=== PATIENT | female | born 1975 | race Caucasian/White ===

== ENCOUNTER 2021-11-24 00:19 | Emergency (ER) | payer OTHER, SELFPAY ==
[2021-11-24 00:28] VITALS: BP 133/92; PULSE 92; RESP 16; TEMP 36.2; O2SAT 96; BMI 41.6
--- NOTE | 2021-11-24 00:47 | ED.GENADULT ---
HPI - General Adult General Chief complaint: Anxiety Stated complaint: low potassium Time Seen by Provider: 11/24/21 00:24 Source: patient and family Mode of arrival: ambulatory Limitations: no limitations History of Present Illness HPI narrative: 46-year-old female with a notable history of Crohn's disease and prior history of hypokalemia the presents to the emergency department with anxiety over the last couple. It is accompanied by some general restlessness, poor sleep and restless legs. She had a similar episode a couple of years ago had her potassium level was noted to be low. This was suspected to be from her Crohn's disease. She says the Crohn's disease is pretty stable, she was off of her Remicade a few months ago but has been on time for the last 2 cycles. She does occasionally have some blood in her stools but this is not abnormal for her. She denies a prior history of iron deficiency anemia. No prior history of mental health disease. She has not made an appointment in the last few weeks to discuss her symptoms with her provider. She had a full-blown panic attack yesterday and another this evening, prompting her to come to the emergency department. She did not try taking Benadryl or any other interventions to help with her symptoms. Denies any alcohol intoxication or stimulants. No recent potassium levels outpatient. Denies intent of self-harm or need to be hospitalized for safety. Denies fever, trauma or recent illness. She is most concerned that her potassium is low again. Past medical history notable for Crohn's disease, hypertension, hyperlipidemia. Her home medications are amitriptyline, lisinopril with hydrochlorothiazide and rosuvastatin. Socially, she recently traveled back from [place] for a concert, reports she was anxious while there but no specific recent stressors or traumas. ROS is notable only for the generalized symptoms as above. Otherwise denies times 12 systems and states that her GI symptoms are stable for her. Related Data Home Medications Medication Instructions Recorded Confirmed lisinopril 20 1 tab PO QDAY 08/21/21 11/24/21 mg-hydrochlorothiazide 25 mg tablet amitriptyline 25 mg tablet mg 11/24/21 rosuvastatin 10 mg tablet mg 11/24/21 Allergies Allergy/AdvReac Type Severity Reaction Status Date / Time Penicillins Allergy hives Verified 11/24/21 00:32 PFSH PFSH Social History Smoking Status: Never smoker How often do you have a drink containing alcohol: never AUDIT-C Alcohol total score: 0 Non-prescribed substance use: marijuana (any form) Non-prescribed substance use details: thc edible tonight 5mg, had two service: No Exam Const: Vital Signs, click to edit/add: Vital Signs - 24 hr 11/24/21 00:28 Temperature 97.2 F L Pulse Rate [Left P ulse Oximeter] 92 Respiratory Rate 16 Blood Pressure [Ri ght Upper Arm] 133/92 H Pulse Oximetry 96 Oxygen Delivery Me thod Room Air Documenting provider has reviewed patient's vital signs: yes Common normals: no apparent distress and alert General appearance: cooperative and well kempt Orientation/consciousness: Yes awake HENMT: Common normals: normocephalic Head and scalp: normocephalic Face and sinus: normal facial exam Mouth: oral and palatal mucosa normal Throat: posterior oropharynx normal Eye: Common normals: PERRL, conjunctivae normal and no scleral icterus Conjunctiva: conjunctiva(e) normal Pupil: PERRL Neck & C-Spine: Common normals: full ROM and no lymphadenopathy Resp: Common normals: normal respiratory effort and clear to auscultation bilaterally Effort & inspection: able to speak in complete sentences Auscultation: clear to auscultation bilaterally Cardio: Common normals: regular rate, regular rhythm, no murmurs and peripheral pulses 2+ throughout Rate: regular rate Rhythm: regular rhythm Peripheral pulses: pulses 2+ throughout GI: Common normals: Normal to inspection, nondistended, normoactive bowel sounds present, soft to palpation, non-tender, no hepatosplenomegaly and no masses Palpation: soft and no hepatosplenomegaly Extremity: Common normals: no pedal edema Neuro: Sensorium/orientation: awake and alert Speech: speech normal Motor exam: strength 5/5 throughout, no tremor noted and no movement abnormalities noted Psych: Appearance: well kempt Attitude: calm and engaged Mood and affect: euthymic mood Insight: insight good Judgement: judgment good Skin: Common normals: no rashes or lesions noted General skin exam: no rashes or lesions noted Course Vital Signs Vital signs: Initial Vital Signs Temperature 97.2 F L 11/24/21 00:28 Temperature Source Temporal Artery Scan 11/24/21 00:28 Pulse Rate 92 11/24/21 00:28 Respiratory Rate 16 11/24/21 00:28 Blood Pressure 133/92 H 11/24/21 00:28 Blood Pressure Mean 105 11/24/21 00:28 Blood Pressure Position Sitting 11/24/21 00:28 Pulse Oximetry 96 11/24/21 00:28 Oxygen Delivery Method 11/24/21 00:28 Vital Signs Temperature 97.2 F L 11/24/21 00:28 Pulse Rate 92 11/24/21 00:28 Respiratory Rate 16 11/24/21 00:28 Blood Pressure 133/92 H 11/24/21 00:28 Pulse Oximetry 96 11/24/21 00:28 Oxygen Delivery Method 11/24/21 00:28 Temperature 97.2 F L 11/24/21 00:28 Pulse Rate 92 11/24/21 00:28 Respiratory Rate 16 11/24/21 00:28 Blood Pressure 133/92 H 11/24/21 00:28 Pulse Oximetry 96 11/24/21 00:28 Oxygen Delivery Method 11/24/21 00:28 Medical Decision Making MDM Narrative Medical decision making narrative: High risk for electrolyte abnormality due to Crohn's disease, though hypokalemia would be unusual in the setting of use of lisinopril with hydrochlorothiazide. Iron deficiency anemia would also be high on the list of issues. None of the seen emergency with her normal vital signs. She does agree that she wants her labs checked, therefore we will order basic metabolic panel, a CBC and she will receive a 0.5 mg of lorazepam. We discussed that if her labs are normal, she will need to follow up with primary care provider for long-term management of her anxiety and she was agreeable with this. Awaiting labs. Labs are back and reviewed. Potassium is 3.4, will replace slightly orally, discussed with patient that I do not think this is contributing to her symptoms today. There were thankfully also no signs of infection, anemia, kidney disease or other significant abnormalities. She does not report significant improvement with the lorazepam. Discussed follow-up plan for primary care followup seeing as there are no emergent findings today. Diagnosis: Acute anxiety, reassuring lab findings, very mild hypokalemia which is likely not contributing to symptoms, replaced Medical Records Medical records reviewed: Yes I reviewed the patient's medical records Lab Data Lab results reviewed: Yes I reviewed the patient's lab results Labs: Lab Results 11/24/21 11/24/21 Range/Units 00:55 00:55 WBC 8.91 (4.50-11.00) K/uL RBC 4.38 (4.00-5.20) m/uL Hgb 13.3 (12.0-16.0) gm/dL Hct 40.2 (33.0-51.0) % MCV 92 (80-100) fL MCH 30 (26-34) pg MCHC 33 (32-36) gm/dL RDW Coeff of Daljit 13.3 (11.5-15.5) % Plt Count 276 (140-440) K/uL Neut % (Auto) 64.9 (42.0-72.0) % Lymph % (Auto) 26.5 (20-44) % Treasure % (Auto) 7.2 (0.0-11.0) % Eos % (Auto) 0.8 (0.0-7.0) % Baso % (Auto) 0.4 (0.0-3.0) % Neut # (Auto) 5.78 (1.7-7.0) K/uL Lymph # (Auto) 2.36 (0.90-2.90) K/uL Treasure # (Auto) 0.60 (0.00-0.90) K/UL Eos # (Auto) 0.07 (0.00-0.50) K/uL Baso # (Auto) 0.04 (0.00-0.30) K/uL Abs Immat Gran (auto) 0.02 (0.00-0.30) K/uL Sodium 139 (135-149) mmol/L Potassium 3.4 L (3.6-5.1) mmol/L Chloride 103 (96-114) mmol/L Carbon Dioxide 27 (20-32) mmol/L BUN 15 (5-24) mg/dL Creatinine 0.6 (0.5-1.5) mg/dL Estimated Creat Clear 107.67 Estimated GFR 113 ml/min Glucose 126 H (60-115) mg/dL Calcium 9.2 (8.4-10.6) mg/dL Discharge Plan Discharge Clinical Impression: Acute anxiety Patient Disposition: Home w/ Parent or Adult Condition: Stable Instructions: Anxiety (ED) Additional Instructions: As we discussed, your potassium is nearly normal at 3.4. I do not think this is contributing to her symptoms today. We have given you a very small dose of an oral potassium replacement, this does not need to be rechecked at your follow-up. I would like for you to avoid alcohol, keep a journal of your symptoms and be reflective of what might be contributing to stress for you, remembering that it is not always logical or reasons that may be at the forefront of your consciousness. Also, it may be related to events from several weeks ago and not necessarily within the last few hours or even couple of days. It is okay to use Tylenol p.m. and/or melatonin as a sleep aid. I would like for you to follow-up with her primary care provider in about 7-14 days to further discuss her symptoms, bring any symptom diary or additional information that you have at the time. The remainder of your labs show no signs of anemia, infection, kidney disease or other electrolyte abnormalities. This is all reassuring. Continue your regular medications as you normally would Activity Level: No Restrictions Discharge Diet: Regular Prescriptions: No Action amitriptyline 25 mg tablet rosuvastatin 10 mg tablet Label Comments: TAKE 1 TABLET BY MOUTH EVERY DAY lisinopril-hydrochlorothiazide 20-25 mg tablet 1 tab PO QDAY Follow Up/Referrals: Sydnee Rider MD [Primary Care Provider] - Stand Alone Forms: [employer] Info Instructions
[2021-11-24] MEDS: LORazepam 0.5 MG TABLET PO (00:49)
--- OUTSIDE RECORDS SUMMARY | 2021-11-24 01:01 | XMS_ITS | Encounter Summary ---
:1975 Author Organization [place] Address [address] [facility] [place] [address] Care Team Providers Name Role Phone No Ref-Primary, Physician Primary Care Provider Reason for Visit Reason Comments Home Infusion Remicade Infusion Encounter Details Date Type Department Care Team Description 05/12/2021 Documentation Only [facility] Keyla Ann Home Infusion Infusion [facility] Natar[facility] (Remicade Infusion) [address] [place] [address] Social History Tobacco Use Types Packs/Day Years Used Date Smoking Tobacco: Never Alcohol Use Standard Drinks/Week Comments No 0 (1 standard drink = 0.6 oz pure alcoho l) Sex Assigned at Date Recorded Not on file documented as of this encounter Progress Notes Keyla Ann [facility] - 05/12/2021 11:59 PM CDTSummary: Remicade Infusion Skilled Nurse visit in the patient home to administer Remicade 500 mg IV. No recent elevated temperature, fever, chills, productive cough, coughing for 3 weeks or longer or hemoptysis, abnormal vital signs, night sweats, chest pain. No decrease in appetite, unexplained weight loss or fatigue. No othernew onset medical symptoms. Current weight 240 lbs. PIV placed in right hand, one attempt. Pre medicated with Tylenol 650 mg po and Zyrtec 10 mg po. Infusion completed without complication or reaction.Pt reports therapy is effective in managing symptoms related to therapy. MALLORY [phone] documented in this encounter Plan of Treatment Not on filedocumented as of this encounter Visit Diagnoses Not on filedocumented in this encounter Care Teams Chain Offbearer Relationship Specialty Start Date End Date No Ref-Primary, Physician PCP - General 03/09/20 documented as of this encounter
--- OUTSIDE RECORDS SUMMARY | 2021-11-24 01:01 | XMS_ITS | Encounter Summary ---
:1975 Author Organization [place] Address [address] [facility] [place] [address] Care Team Providers Name Role Phone No Ref-Primary, Physician Primary Care Provider Encounter Details Date Type Department Care Team Description 11/05/2021 Home Infusion [place] [facility] Romina Meraz, [facility] [address] [place], [place] [phone] [place] [address] [place] [address] (Wo rk) Social History Tobacco Use Types Packs/Day Years Used Date Smoking Tobacco: Never Alcohol Use Standard Drinks/Week Comments No 0 (1 standard drink = 0.6 oz pure alcoho l) Sex Assigned at Date Recorded Not on file documented as of this encounter Progress Notes Karina Lo - 11/05/2021 11:59 PM CDT This is a recent snapshot of the patient's [facility] medical record. For current drug dose and complete information and questions, call [phone] or In Marii [facility] ([id number]) CSN Number: [id number] documented in this encounter Plan of Treatment Not on filedocumented as of this encounter Visit Diagnoses Not on filedocumented in this encounter Care Teams Special Events Planner Relationship Specialty Start Date End Date No Ref-Primary, Physician PCP - General 03/09/20 documented as of this encounter
--- OUTSIDE RECORDS SUMMARY | 2021-11-24 01:01 | XMS_ITS | Encounter Summary ---
:1975 Author Organization [place] Address [facility] [facility] [place] [address] Care Team Providers Name Role Phone No Ref-Primary, Physician Primary Care Provider Encounter Details Date Type Department Care Team Description 09/21/2021 Home Infusion [facility] Romina Meraz, [facility] [address] [place], [place] [phone] [place] [address] [place] [address] (Wo rk) Social History Tobacco Use Types Packs/Day Years Used Date Smoking Tobacco: Never Alcohol Use Standard Drinks/Week Comments No 0 (1 standard drink = 0.6 oz pure alcoho l) Sex Assigned at Date Recorded Not on file documented as of this encounter Progress Notes Bertha Florez - 09/21/2021 11:59 PM CDT This is a recent snapshot of the patient's [facility] medical record. For current drug dose and complete information and questions, call [phone] or In [facility] ([id number]) CSN Number: [id number] documented in this encounter Plan of Treatment Not on filedocumented as of this encounter Visit Diagnoses Not on filedocumented in this encounter Care Teams Pick Out Hand Relationship Specialty Start Date End Date No Ref-Primary, Physician PCP - General 03/09/20 documented as of this encounter
--- OUTSIDE RECORDS SUMMARY | 2021-11-24 01:01 | XMS_ITS | Encounter Summary ---
:1975 Author Organization [place] Address [address] [facility] [place] [address] Care Team Providers Name Role Phone No Ref-Primary, Physician Primary Care Provider Reason for Visit Reason Onset Date Comments Prior Auth - Medication 07/21/2021 [facility]- Remicade re newal Encounter Details Date Type Department Care Team Description 07/21/2021 Telephone [facility] Huepfel, Romina, RPH Prior Auth - Medication [address] [facility] ([facility]- Remicade renewal) [place], [place] [address] [address] [place], [place] [phone] [address] (Wo rk) Social History Tobacco Use Types Packs/Day Years Used Date Smoking Tobacco: Never Alcohol Use Standard Drinks/Week Comments No 0 (1 standard drink = 0.6 oz pure alcoho l) Sex Assigned at Date Recorded Not on file documented as of this encounter Miscellaneous Notes Telephone Encounter - Julia Summers - 07/29/2021 2:28 PM CDT Received email back from [facility] pt financial counselor and upon digging further into this, last year'sletter of medical necessity was actually written by a [place] doc. Emailed back to [facility] asking if MD would be interested in submitting one for her this year. Awaiting reply. Telephone Encounter - Julia Summers - 07/29/2021 2:01 PM CDT Received a call from [employer] rep that they would like to schedule a [id number] as this dosing is outside of FDA guidelines. Email sent to [facility] asking for new letter of medical necessity, per rep the turn around time when a decision is needed is by 07/30 at 2pm. Telephone Encounter - Julia Summers - 07/23/2021 11:07 AM CDT Images from the original note were not included. Submitted auth and it is still pending: Note next dose due ~08/03/21 Telephone Encounter - Julia Summers - 07/21/2021 8:34 AM CDT Email sent to [facility] asking for recent clinicals to submit renewal, awaiting fax. documented in this encounter Plan of Treatment Not on filedocumented as of this encounter Visit Diagnoses Not on filedocumented in this encounter Care Teams Intelligence Operations Relationship Specialty Start Date End Date No Ref-Primary, Physician PCP - General 03/09/20 documented as of this encounter
--- OUTSIDE RECORDS SUMMARY | 2021-11-24 01:01 | XMS_ITS | Encounter Summary ---
:1975 Author Organization [place] Address [facility] [place] [address] Care Team Providers Name Role Phone No Ref-Primary, Physician Primary Care Provider [phone] Encounter Details Date Type Department Care Team Description 11/23/2021 Travel Social History Tobacco Use Types Packs/Day Years Used Date Smoking Tobacco: Never Alcohol Use Standard Drinks/Week Comments No 0 (1 standard drink = 0.6 oz pure alcoho l) Sex Assigned at Date Recorded Not on file COVID-19 Exposure Response Date Recorded In the last 10 days, have you been in contact No / Unsure 11/23/2021 11:29 PM CDT with someone who was confirmed or suspected to have Coronavirus/COVID-19? documented as of this encounter Plan of Treatment Not on filedocumented as of this encounter Visit Diagnoses Not on filedocumented in this encounter Care Teams Housesmith Relationship Specialty Start Date End Date No Ref-Primary, Physician PCP - General 03/09/20 documented as of this encounter
--- OUTSIDE RECORDS SUMMARY | 2021-11-24 01:01 | XMS_ITS | Encounter Summary ---
:1975 Author Organization [place] Address [address] [facility] [address] Care Team Providers Name Role Phone No Ref-Primary, Physician Primary Care Provider Encounter Details Date Type Department Care Team Description 08/25/2021 Home Infusion [facility] Romina Meraz, [facility] [address] [place], [place] [phone] [place] [address] [place] [address] (Wo rk) Social History Tobacco Use Types Packs/Day Years Used Date Smoking Tobacco: Never Alcohol Use Standard Drinks/Week Comments No 0 (1 standard drink = 0.6 oz pure alcoho l) Sex Assigned at Date Recorded Not on file documented as of this encounter Progress Notes Karina Lo - 08/25/2021 11:59 PM CDT This is a recent snapshot of the patient's [facility] medical record. For current drug dose and complete information and questions, call [phone] or In [facility] ([id number]) CSN Number: [id number] documented in this encounter Plan of Treatment Not on filedocumented as of this encounter Visit Diagnoses Not on filedocumented in this encounter Care Teams Oak Tanner Relationship Specialty Start Date End Date No Ref-Primary, Physician PCP - General 03/09/20 documented as of this encounter
--- OUTSIDE RECORDS SUMMARY | 2021-11-24 01:01 | XMS_ITS | Encounter Summary ---
:1975 Author Organization [place] Address [address] [facility] [place] [address] Care Team Providers Name Role Phone No Ref-Primary, Physician Primary Care Provider Encounter Details Date Type Department Care Team Description 09/21/2021 Home Infusion [place] Romina Meraz, [facility] [address] [facility] [place], [place] [phone] [address] [facility] [phone] [place] [address] (Wo rk) Social History Tobacco Use Types Packs/Day Years Used Date Smoking Tobacco: Never Alcohol Use Standard Drinks/Week Comments No 0 (1 standard drink = 0.6 oz pure alcoho l) Sex Assigned at Date Recorded Not on file documented as of this encounter Plan of Treatment Not on filedocumented as of this encounter Visit Diagnoses Not on filedocumented in this encounter Care Teams Autism Specialist Relationship Specialty Start Date End Date No Ref-Primary, Physician PCP - General 03/09/20 documented as of this encounter
--- OUTSIDE RECORDS SUMMARY | 2021-11-24 01:01 | XMS_ITS | Encounter Summary ---
:1975 Author Organization [place] Address [address] [facility] [place] [address] Care Team Providers Name Role Phone No Ref-Primary, Physician Primary Care Provider Reason for Visit Reason Comments Home Infusion Encounter Details Date Type Department Care Team Description 11/05/2021 Documentation Only [place] [facility] Keyla Ann, Home Infusion [address] [place] [address] Social History Tobacco Use Types Packs/Day Years Used Date Smoking Tobacco: Never Alcohol Use Standard Drinks/Week Comments No 0 (1 standard drink = 0.6 oz pure alcoho l) Sex Assigned at Date Recorded Not on file documented as of this encounter Progress Notes Keyla Ann [facility] - 11/05/2021 11:59 PM CDTSummary: Remicade Infusion Skilled Nurse visit in the patient home to administer Remicade 500 mg IV. No recent elevated temperature, fever, chills, productive cough, coughing for 3 weeks or longer or hemoptysis, abnormal vital signs, night sweats, chest pain. No decrease in appetite, unexplained weight loss or fatigue. No othernew onset medical symptoms. Current weight 240 lbs. PIV placed in left AC, one attempt. Labs drawn CBC d/p, BUN, Creat, Hepatic Panel, and Vitamin D. Pre medicated with Tylenol 650 mg po and Zyrtec 10 mg po. Infusion completed without complication or reaction. Pt reports therapy is effective in managing symptoms related to therapy. MALLORY [phone] documented in this encounter Plan of Treatment Not on filedocumented as of this encounter Visit Diagnoses Not on filedocumented in this encounter Care Teams Client Professional Relationship Specialty Start Date End Date No Ref-Primary, Physician PCP - General 03/09/20 documented as of this encounter
--- OUTSIDE RECORDS SUMMARY | 2021-11-24 01:01 | XMS_ITS | Encounter Summary ---
:1975 Author Organization [place] Address [address] [facility] [place] [address] Care Team Providers Name Role Phone No Ref-Primary, Physician Primary Care Provider Encounter Details Date Type Department Care Team Description 07/01/2021 Home Infusion [place] [facility] Romina Meraz, [facility] [address] [place], [place] [phone] [place] [address] [place] [address] (Wo rk) Social History Tobacco Use Types Packs/Day Years Used Date Smoking Tobacco: Never Alcohol Use Standard Drinks/Week Comments No 0 (1 standard drink = 0.6 oz pure alcoho l) Sex Assigned at Date Recorded Not on file documented as of this encounter Progress Notes Karina Lo - 07/01/2021 11:59 PM CDT This is a recent snapshot of the patient's [facility] medical record. For current drug dose and complete information and questions, call [phone] or In [facility] ([id number]) CSN Number: [id number] documented in this encounter Plan of Treatment Not on filedocumented as of this encounter Visit Diagnoses Not on filedocumented in this encounter Care Teams Personnel Worker Relationship Specialty Start Date End Date No Ref-Primary, Physician PCP - General 03/09/20 documented as of this encounter
--- OUTSIDE RECORDS SUMMARY | 2021-11-24 01:01 | XMS_ITS | Encounter Summary ---
:1975 Author Organization [facility] Address Pending sale to [facility] [place] [address] Care Team Providers Name Role Phone No Ref-Primary, Physician Primary Care Provider Encounter Details Date Type Department Care Team Description 10/20/2021 Home Infusion [facility], [facility] [address] [place], [place] [phone] [place] [address] [place] [address] (Wo rk) Social History Tobacco Use Types Packs/Day Years Used Date Smoking Tobacco: Never Alcohol Use Standard Drinks/Week Comments No 0 (1 standard drink = 0.6 oz pure alcoho l) Sex Assigned at Date Recorded Not on file documented as of this encounter Progress Notes Bertha Florez - 10/20/2021 11:59 PM CDT This is a recent snapshot of the patient's [facility] medical record. For current drug dose and complete information and questions, call [phone] or In amanda Nich[facility] ([id number]) CSN Number: [id number] documented in this encounter Plan of Treatment Not on filedocumented as of this encounter Visit Diagnoses Not on filedocumented in this encounter Care Teams Mathematical Engineer Relationship Specialty Start Date End Date No Ref-Primary, Physician PCP - General 03/09/20 documented as of this encounter
--- OUTSIDE RECORDS SUMMARY | 2021-11-24 01:01 | XMS_ITS | Encounter Summary ---
:1975 Author Organization [facility] Address [address] [facility] [place] [address] Care Team Providers Name Role Phone No Ref-Primary, Physician Primary Care Provider Encounter Details Date Type Department Care Team Description 07/08/2021 Home Infusion [facility] Romina Meraz, [facility] [address] [place], [place] [phone] [facility] [phone] [place] [address] (Wo rk) Social History Tobacco Use Types Packs/Day Years Used Date Smoking Tobacco: Never Alcohol Use Standard Drinks/Week Comments No 0 (1 standard drink = 0.6 oz pure alcoho l) Sex Assigned at Date Recorded Not on file documented as of this encounter Progress Notes Connie Melvin - 07/08/2021 11:59 PM CDT This is a recent snapshot of the patient's [facility] medical record. For current drug dose and complete information and questions, call [phone] or In amanda Nicholson [facility] ([id number]) CSN Number: [id number] documented in this encounter Plan of Treatment Not on filedocumented as of this encounter Visit Diagnoses Not on filedocumented in this encounter Care Teams Dining Manager Relationship Specialty Start Date End Date No Ref-Primary, Physician PCP - General 03/09/20 documented as of this encounter
--- OUTSIDE RECORDS SUMMARY | 2021-11-24 01:01 | XMS_ITS | Encounter Summary ---
:1975 Author Organization [facility] Address [facility] [place] [address] Care Team Providers Name Role Phone No Ref-Primary, Physician Primary Care Provider Encounter Details Date Type Department Care Team Description 09/24/2021 Home Infusion [facility] Rom[facility], [facility] [address] [place], [place] [phone] [place] [address] [place] [address] (Wo rk) Social History Tobacco Use Types Packs/Day Years Used Date Smoking Tobacco: Never Alcohol Use Standard Drinks/Week Comments No 0 (1 standard drink = 0.6 oz pure alcoho l) Sex Assigned at Date Recorded Not on file documented as of this encounter Progress Notes Bertha Florez - 09/24/2021 11:59 PM CDT This is a recent snapshot of the patient's [facility] medical record. For current drug dose and complete information and questions, call [phone] or In [facility] Nicholson [facility] ([id number]) CSN Number: [id number] documented in this encounter Plan of Treatment Not on filedocumented as of this encounter Visit Diagnoses Not on filedocumented in this encounter Care Teams Whiteprinting Machine Operator Relationship Specialty Start Date End Date No Ref-Primary, Physician PCP - General 03/09/20 documented as of this encounter
--- OUTSIDE RECORDS SUMMARY | 2021-11-24 01:01 | XMS_ITS | Encounter Summary ---
:1975 Author Organization [place] Address [address] [facility] [place] [address] Care Team Providers Name Role Phone No Ref-Primary, Physician Primary Care Provider Encounter Details Date Type Department Care Team Description 09/15/2021 Home Infusion [facility] Rom[facility] Mer[facility], [facility] [address] [place], [place] [phone] [facility] [phone] [place] [address] (Wo rk) Social History Tobacco Use Types Packs/Day Years Used Date Smoking Tobacco: Never Alcohol Use Standard Drinks/Week Comments No 0 (1 standard drink = 0.6 oz pure alcoho l) Sex Assigned at Date Recorded Not on file documented as of this encounter Progress Notes Lynn Busch - 09/15/2021 11:59 PM CDT This is a recent snapshot of the patient's [facility] medical record. For current drug dose and complete information and questions, call [phone] or In [facility] ([id number] CSN Number: [id number] documented in this encounter Plan of Treatment Not on filedocumented as of this encounter Visit Diagnoses Not on filedocumented in this encounter Care Teams Supervisor Pullet Farm Relationship Specialty Start Date End Date No Ref-Primary, Physician PCP - General 03/09/20 documented as of this encounter
--- OUTSIDE RECORDS SUMMARY | 2021-11-24 01:01 | XMS_ITS | Encounter Summary ---
:1975 Author Organization [facility] Address [address] [place] [address] Care Team Providers Name Role Phone No Ref-Primary, Physician Primary Care Provider [phone] Encounter Details Date Type Department Care Team Description 11/04/2021 Home Infusion [facility] Romina Mer[facility], [facility] [address] [place], [place] [phone] [place] [address] [place] [address] (Wo rk) Social History Tobacco Use Types Packs/Day Years Used Date Smoking Tobacco: Never Alcohol Use Standard Drinks/Week Comments No 0 (1 standard drink = 0.6 oz pure alcoho l) Sex Assigned at Date Recorded Not on file documented as of this encounter Progress Notes Karina Lo - 11/04/2021 11:59 PM CDT This is a recent snapshot of the patient's [facility] medical record. For current drug dose and complete information and questions, call [phone] or In [facility] ([id number]) CSN Number: [id number] documented in this encounter Plan of Treatment Not on filedocumented as of this encounter Visit Diagnoses Not on filedocumented in this encounter Care Teams Eye Technician Relationship Specialty Start Date End Date No Ref-Primary, Physician PCP - General 03/09/20 documented as of this encounter
--- OUTSIDE RECORDS SUMMARY | 2021-11-24 01:01 | XMS_ITS | Encounter Summary ---
:1975 Author Organization [facility] Address [address] [facility] [place] [address] Care Team Providers Name Role Phone No Ref-Primary, Physician Primary Care Provider Encounter Details Date Type Department Care Team Description 08/04/2021 Home Infusion [facility] Romina Mer[facility], [facility] [address] [place], [place] [phone] [facility] [phone] [place] [address] (Wo rk) Social History Tobacco Use Types Packs/Day Years Used Date Smoking Tobacco: Never Alcohol Use Standard Drinks/Week Comments No 0 (1 standard drink = 0.6 oz pure alcoho l) Sex Assigned at Date Recorded Not on file documented as of this encounter Progress Notes Lianna Feliciano - 08/04/2021 11:59 PM CDT This is a recent snapshot of the patient's [facility] medical record. For current drug dose and complete information and questions, call [phone] or In amanda Nicholson [facility] ([id number]) CSN Number: [id number] documented in this encounter Plan of Treatment Not on filedocumented as of this encounter Visit Diagnoses Not on filedocumented in this encounter Care Teams Dialysis Biomed Technician Relationship Specialty Start Date End Date No Ref-Primary, Physician PCP - General 03/09/20 documented as of this encounter
--- OUTSIDE RECORDS SUMMARY | 2021-11-24 01:01 | XMS_ITS | Encounter Summary ---
:1975 Author Organization [place] Address [address] [facility] [place] [address] Care Team Providers Name Role Phone No Ref-Primary, Physician Primary Care Provider Encounter Details Date Type Department Care Team Description 07/15/2021 Home Infusion [facility] Romina Meraz, [facility] [address] [place], [place] [phone] [facility] [phone] [place] [address] (Wo rk) Social History Tobacco Use Types Packs/Day Years Used Date Smoking Tobacco: Never Alcohol Use Standard Drinks/Week Comments No 0 (1 standard drink = 0.6 oz pure alcoho l) Sex Assigned at Date Recorded Not on file documented as of this encounter Progress Notes Lynn Busch - 07/15/2021 11:59 PM CDT This is a recent snapshot of the patient's [facility] medical record. For current drug dose and complete information and questions, call [phone] or In [facility] ([id number]) CSN Number: [id number] documented in this encounter Plan of Treatment Not on filedocumented as of this encounter Visit Diagnoses Not on filedocumented in this encounter Care Teams Livestock Dealer Relationship Specialty Start Date End Date No Ref-Primary, Physician PCP - General 03/09/20 documented as of this encounter
--- OUTSIDE RECORDS SUMMARY | 2021-11-24 01:01 | XMS_ITS | Encounter Summary ---
:1975 Author Organization [facility] Address [address] [facility] [place] [address] Care Team Providers Name Role Phone No Ref-Primary, Physician Primary Care Provider Reason for Visit Reason Onset Date Comments Prior Auth - Medication 06/29/2021 [facility]- Remicade re newal Encounter Details Date Type Department Care Team Description 06/29/2021 Telephone [facility] H[facility], Romina, RPH Prior Auth - Medication [address] [facility] ([facility]- Remicade renewal) [place], [place] [address] [address] [place], [place] [phone] [address] (Wo rk) Social History Tobacco Use Types Packs/Day Years Used Date Smoking Tobacco: Never Alcohol Use Standard Drinks/Week Comments No 0 (1 standard drink = 0.6 oz pure alcoho l) Sex Assigned at Date Recorded Not on file documented as of this encounter Miscellaneous Notes Telephone Encounter - Julia Summers - 07/30/2021 10:40 AM CDT See telephone encounter from 07/21/2021 for more up to date notes. Telephone Encounter - Julia Summers - 07/29/2021 4:08 PM CDT Recieved voicemail and fax from [facility] that a peer to peer is needed, emailing [facility] to obtain a new letter of medical necessity. Telephone Encounter - Julia Summers - 06/29/2021 1:17 PM CDT When submitting via the [facility] portal, a pop up stated that if proceed then auth [id number] will end, checked the online portal and auth is good until 07/21/2021- our records had 06/23/21, will postpone renewal for now as most likely need to reach out to clinic for clinicals and possibly new LMN. documented in this encounter Plan of Treatment Not on filedocumented as of this encounter Visit Diagnoses Not on filedocumented in this encounter Care Teams River Transportation Worker Relationship Specialty Start Date End Date No Ref-Primary, Physician PCP - General 03/09/20 documented as of this encounter
--- OUTSIDE RECORDS SUMMARY | 2021-11-24 01:01 | XMS_ITS | Clinical Summary ---
:1975 Author Organization [facility] Address [address] [place] [address] Care Team Providers Name Role Phone No Ref-Primary, Physician Primary Care Provider [phone] Allergies Active Allergy Reactions Severity Noted Date Comments Amoxicillin 08/19/2003 hives, airway c onstriction Ketamine Visual Disturbance, Medium 02/03/2019 Other (See Comments) Medications Medication Sig Dispensed Refills Start Date End Date Status ENTOCORT EC 3 MG OR 3 CAPSULES DAILY 0 08/19/2003 Active CP24 COLAZAL 750 MG OR CAPS 3 CAPSULES 3 TIMES 0 08/19/19 04 Active DAILY ZITHROMAX Z-KOBE 250 MG 2 tablets day 1, 1 6 0 08/19/19 04 Active OR TABS tablet days 2-5 inFLIXimab (REMICADE 0 Active IV) lisinopril (ZESTRIL) 5 Take 5 mg by mouth 0 Active MG tablet daily doxycycline hyclate Take 50 mg by 0 Active (VIBRAMYCIN) 50 MG mouth 2 times capsule daily sertraline (ZOLOFT) Take 50 mg by 0 Active 100 MG tablet mouth daily ondansetron (ZOFRAN Take 1 tablet (4 10 tablet 0 03/09/2020 Active ODT) 4 MG ODT tab mg) by mouth every 8 hours as needed for nausea potassium chloride ER Take 1 tablet (20 14 tablet 0 03/09/2020 Active (KLOR-CON M) 20 MEQ CR mEq) by mouth tablet daily Active Problems Problem Noted Date 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 Encounters Date Type Specialty Care Team Description 11/23/2021 Travel 11/05/2021 Documentation Only Pharmacy [facility] 11/05/2021 Home Infusion Pharmacy Huepfel, Romina, RPH 11/04/2021 Home Infusion Pharmacy Huepfel, Romina, RPH 10/30/2021 Home Infusion Pharmacy Huepfel, Romina, RPH 10/20/2021 Home Infusion Pharmacy Huepfel, Romina, RPH 09/24/2021 Home Infusion Pharmacy Huepfel, Romina, RPH 09/21/2021 Home Infusion Pharmacy Huepfel, Romina, RPH 09/21/2021 Home Infusion Pharmacy Huepfel, Romina, RPH 09/21/2021 Documentation Only Pharmacy e[facility] 09/15/2021 Home Infusion Pharmacy Huepfel, Romina, RPH 08/25/2021 Home Infusion Pharmacy Huepfel, Romina, RPH from Last 3 Months Social History Tobacco Use Types Packs/Day Years [...] was confirmed or suspected to have Coronavirus/COVID-19? Last Filed Vital Signs Vital Sign Reading Time Taken Comments Blood Pressure 139/89 03/09/2020 6:30 AM ANNOUNCER Pulse 98 03/09/2020 6:30 AM ANNOUNCER Temperature 36 ??C (96.8 ??F) 03/09/2020 3:46 AM ANNOUNCER Respiratory Rate 17 03/09/2020 6:30 AM ANNOUNCER Oxygen Saturation 94% 03/09/2020 6:30 AM ANNOUNCER Inhaled Oxygen Concentration - - Weight 89.4 kg (197 lb) 08/19/2003 11:00 AM CDT Height - - Body Mass Index - - Plan of Treatment Health Maintenance Due Date Last Done Comments ADVANCE CARE PLANNING 1975 ANNUAL REVIEW OF HM ORDERS 1975 YEARLY PREVENTIVE VISIT 1975 COVID-19 Vaccine (#1) 1975 03/18/2021, 10/14/2020, 04/18/2020, Additional history exists HIV SCREENING 1992 HEPATITIS C SCREENING 04/23/1995 PAP 1998 Pneumococcal Vaccine: 01/29/2017 01/30/2016 Pediatrics (0 to 5 Years) and At-Risk Patients (6 to 64 Years) (2 - PPSV23 or PCV20) PHQ-2 (once per calendar 02/14/2021 year) INFLUENZA VACCINE (#1) 2021 11/26/2019, 10/23/2018, 10/06/2017, Additional history exists DTAP/TDAP/TD IMMUNIZATION 07/20/2028 07/20/2018, 1984 (3 - Td or Tdap) HEPATITIS B IMMUNIZATION Aged Out 09/04/2020, 07/20/2018, No longer eligible 03/23/2011 based on patient 's age to complete this topic IPV IMMUNIZATION Aged Out No longer eligi ble based on patient 's age to complete this topic MENINGITIS IMMUNIZATION Aged Out No longe r eligible based on patient 's age to complete this topic Procedures Procedure Name Priority Date/Time Associated Diagnosis Comme nts CBC WITH PLATELETS & Routine 11/04/2021 1:33 Crohn's disease o f Results for this DIFFERENTIAL PM CDT both small and large procedu re are in intestine without the result s complications (H) section. CBC WITH PLATELETS Routine 11/04/2021 1:33 Crohn's disease of Results for this AND DIFFERENTIAL PM CDT both small and large pro cedure are in intestine without the result s complications (H) section. VITAMIN D DEFICIENCY Routine 11/04/2021 1:33 Crohn's disease o f Results for this SCREENING PM CDT both small and large procedu re are in intestine without the result s complications (H) section. UREA NITROGEN (BUN) Routine 11/04/2021 1:33 Crohn's disease of Results for this PM CDT both small and large procedu re are in intestine without the result s complications (H) section. CREATININE Routine 11/04/2021 1:33 Crohn's disease of Result s for this PM CDT both small and large procedu re are in intestine without the result s complications (H) section. HEPATIC FUNCTION Routine 11/04/2021 1:33 Crohn's disease of Re sults for this PANEL PM CDT both small and large procedu re are in intestine without the result s complications (H) section. from Last 3 Months Results CBC with platelets and differential (11/04/2021 1:33 PM CDT) Analysis Performed At Patho logist Time Signature WBC Count 7.7 4.0 - 11.0 11/04/2021 [facility] 10e3/uL 4:05 PM CDT RBC Count 4.64 3.80 - 11/04/2021 [facility] 5.20 4:05 PM CDT 10e6/uL Hemoglobin 14.0 11.7 - 11/04/2021 [facility] 15.7 g/dL 4:05 PM CDT Hematocrit 42.7 35.0 - 11/04/2021 [facility] 47.0 % 4:05 PM CDT MCV 92 78 - 100 11/04/2021 [facility] fL 4:05 PM CDT MCH 30.2 26.5 - 11/04/2021 [facility] 33.0 pg 4:05 PM CDT MCHC 32.8 31.5 - 11/04/2021 [facility] 36.5 g/dL 4:05 PM CDT RDW 13.3 10.0 - 11/04/2021 [facility] 15.0 % 4:05 PM CDT Platelet Count 303 150 - 450 11/04/2021 [facility] 10e3/uL 4:05 PM CDT % Neutrophils 46 % 11/04/2021 [facility] 4:05 PM CDT % Lymphocytes 44 % 11/04/2021 [facility] 4:05 PM CDT % Monocytes 8 % 11/04/2021 [facility] 4:05 PM CDT % Eosinophils 1 % 11/04/2021 [facility] 4:05 PM CDT % Basophils 1 % 11/04/2021 [facility] 4:05 PM CDT % Immature 0 % 11/04/2021 [facility] Granulocytes 4:05 PM CDT NRBCs per 100 WBC 0 <1 /100 11/04/2021 [facility] RY 4:05 PM CDT Absolute 3.5 1.6 - 8.3 11/04/2021 [facility] Neutrophils 10e3/uL 4:05 PM CDT Absolute 3.4 0.8 - 5.3 11/04/2021 [facility] Lymphocytes 10e3/uL 4:05 PM CDT Absolute 0.6 0.0 - 1.3 11/04/2021 [facility] Monocytes 10e3/uL 4:05 PM CDT Absolute 0.1 0.0 - 0.7 11/04/2021 [facility] Eosinophils 10e3/uL 4:05 PM CDT Absolute 0.1 0.0 - 0.2 11/04/2021 [facility] Basophils 10e3/uL 4:05 PM CDT Absolute Immature 0.0 <=0.4 11/04/2021 [facility] Granulocytes 10e3/uL 4:05 PM CDT Absolute NRBCs 0.0 10e3/uL 11/04/2021 [facility] 4:05 PM CDT Specimen Anatomical Collection Method Collection Time Receive d Time (Source) Location / / Volume Laterality Blood BLOOD SPECIMEN / Client Draw / 11/04/2021 1:33 PM 10/16 4:01 Unknown Unknown CDT PM CDT Marge Villa MD LAB - BLOOD ORDERABLES Performing Organization Address City/State/ZIP Code [place] [address] Care Lab [address] Lab (1st floor, no room number) Vitamin D Deficiency (11/04/2021 1:33 PM CDT) athologist Signature Vitamin D, 29 20 - 75 11/05/2021 [facility] Total ug/L 9:59 AM CDT CORE/PROT/ENDO (25-Hydroxy) Specimen Anatomical Collection Method Collection Time Receive d Time (Source) Location / / Volume Laterality Blood BLOOD SPECIMEN / Client Draw / 11/04/2021 1:33 PM 10/16 4:01 Unknown Unknown CDT PM CDT Narrative [facility] CORE/PROT/ENDO - 11/05/2021 9:59 AM CDT Season, race, dietary intake, and treatment affect the concentration of 04-uffogpt-Lndhzdx D. Values may decrease during winter months and in crease during summer months. Values 20- 29 ug/L may indicate Vitamin D insufficiency and values <20 ug/L may indicate Vitamin D deficiency. Vitamin D determination is routinely per formed by an immunoassay specific for 25 hydroxyvitamin D3. ??If an individual is on vitamin D2(ergocalciferol) supplementation, please specify 25 OH vitamin D2 and D3 level determination by LCMSMS test VITD23. Marge Villa MD LAB - BLOOD ORDERABLES Performing Organization Address City/State/ZIP Code Phon e Number [facility] CORE/PROT/ENDO [facility] [place] [address] Core/Prot/Endo [address] [facility] [address] Building, Room 3-580 Urea Nitrogen (BUN) (11/04/2021 1:33 PM CDT) athologist Signature Urea Nitrogen 11.0 6.0 - 20.0 11/04/2021 [facility] mg/dL 4:40 PM CDT Specimen Anatomical Collection Method Collection Time Receive d Time (Source) Location / / Volume Laterality Blood BLOOD SPECIMEN / Client Draw / 11/04/2021 1:33 PM 10/16 4:01 Unknown Unknown CDT PM CDT Marge Villa MD LAB - BLOOD ORDERABLES Performing Organization Address City/State/ZIP Code [place] [address] Care Lab [address] Lab (1st floor, no room number) Hepatic function panel (11/04/2021 1:33 PM CDT) athologist Signature Protein Total 7.5 6.4 - 8.3 11/04/2021 [facility] g/dL 4:40 PM CDT Albumin 4.2 3.5 - 5.2 11/04/2021 [facility] g/dL 4:40 PM CDT Bilirubin Total 0.2 <=1.2 11/04/2021 [facility] mg/dL 4:40 PM CDT Alkaline 59 35 - 104 11/04/2021 [facility] Phosphatase U/L 4:40 PM CDT AST 22 10 - 35 11/04/2021 [facility] U/L 4:40 PM CDT ALT 25 10 - 35 11/04/2021 [facility] U/L 4:40 PM CDT Bilirubin Direct <0.20 0.00 - 11/04/2021 [facility] Y 0.30 mg/dL 4:40 PM CDT Specimen Anatomical Collection Method Collection Time Receive d Time (Source) Location / / Volume Laterality Blood BLOOD SPECIMEN / Client Draw / 11/04/2021 1:33 PM 10/16 4:01 Unknown Unknown CDT PM CDT Marge Villa MD LAB - BLOOD ORDERABLES Performing Organization Address City/[facility]/ZIP Code [place] [address] Care Lab [address] Lab (1st floor, no room number) Creatinine (11/04/2021 1:33 PM CDT) athologist Signature Creatinine 0.67 0.51 - 0.95 11/04/2021 [facility] mg/dL 4:40 PM CDT GFR Estimate >90 >60 11/04/2021 [facility] mL/min/1.73 4:40 PM CDT m2 Comment: Effective February 03, 2021 eGF Rcr in adults is calculated using the 2020 CKD-EPI creatinine equation which includ es age and gender (Angel et al., [place], DOI: 10.1056/JBXPcv5948170) Specimen Anatomical Collection Method Collection Time Receive d Time (Source) Location / / Volume Laterality Blood BLOOD SPECIMEN / Client Draw / 11/04/2021 1:33 PM 10/16 4:01 Unknown Unknown CDT PM CDT Marge Villa MD LAB - BLOOD ORDERABLES Performing Organization Address City/[facility]/ZIP Code [place] [address] Care Lab [address] Lab (1st floor, no room number) from Last 3 Months Insurance Payer Benefit Plan / Subscriber ID Effective Phone Address T ype Group Dates [facility] [id number] 2019-Prese [phone] [address] [facility] [address] [place] [address] Care Teams Basting Marker Relationship Specialty Start Date End Date No Ref-Primary, Physician PCP - General 03/09/20
--- OUTSIDE RECORDS SUMMARY | 2021-11-24 01:01 | XMS_ITS | Encounter Summary ---
:1975 Author Organization [place] Address [address] [facility] [place] [address] Care Team Providers Name Role Phone No Ref-Primary, Physician Primary Care Provider Reason for Visit Reason Comments Home Infusion Encounter Details Date Type Department Care Team Description 06/24/2021 Documentation Only [facility] Keyal Ann, Home Infusion [address] [place] [address] Social History Tobacco Use Types Packs/Day Years Used Date Smoking Tobacco: Never Alcohol Use Standard Drinks/Week Comments No 0 (1 standard drink = 0.6 oz pure alcoho l) Sex Assigned at Date Recorded Not on file documented as of this encounter Progress Notes Keyla Ann [facility] - 06/24/2021 11:59 PM CDTSummary: Remicade Infusion Skilled Nurse [...] PIV placed in left AC, one attempt. Pre medicated with Tylenol 650 mg po and Zyrtec 10 mg po. Infusion completed without complication or reaction. Ptreports therapy is effective in managing symptoms related to therapy. [facility] [phone] documented in this encounter Plan of Treatment Not on filedocumented as of this encounter Visit Diagnoses Not on filedocumented in this encounter Care Teams Radio Adjuster Relationship Specialty Start Date End Date No Ref-Primary, Physician PCP - General 03/09/20 documented as of this encounter
--- OUTSIDE RECORDS SUMMARY | 2021-11-24 01:01 | XMS_ITS | Encounter Summary ---
:1975 Author Organization [place] Address [address] [facility] [place] [address] Care Team Providers Name Role Phone No Ref-Primary, Physician Primary Care Provider Encounter Details Date Type Department Care Team Description 05/12/2021 Home Infusion [facility] Rom[facility], [facility] [address] [place], [place] [phone] [place] [address] [place] [address] (Wo rk) Social History Tobacco Use Types Packs/Day Years Used Date Smoking Tobacco: Never Alcohol Use Standard Drinks/Week Comments No 0 (1 standard drink = 0.6 oz pure alcoho l) Sex Assigned at Date Recorded Not on file documented as of this encounter Progress Notes Karina Lo - 05/12/2021 11:59 PM CDT This is a recent snapshot of the patient's [facility] medical record. For current drug dose and complete information and questions, call [phone] or In [facility] ([id number]) CSN Number: [id number] documented in this encounter Plan of Treatment Not on filedocumented as of this encounter Visit Diagnoses Not on filedocumented in this encounter Care Teams Special Assets Officer Relationship Specialty Start Date End Date No Ref-Primary, Physician PCP - General 03/09/20 documented as of this encounter
--- OUTSIDE RECORDS SUMMARY | 2021-11-24 01:01 | XMS_ITS | Encounter Summary ---
:1975 Author Organization [place] Address [address] [facility] [place] [address] Care Team Providers Name Role Phone No Ref-Primary, Physician Primary Care Provider Reason for Visit Reason Comments Home Infusion Encounter Details Date Type Department Care Team Description 09/21/2021 Documentation Only [facility] Keyla Ann, Home Infusion [address] [place] [address] Social History Tobacco Use Types Packs/Day Years Used Date Smoking Tobacco: Never Alcohol Use Standard Drinks/Week Comments No 0 (1 standard drink = 0.6 oz pure alcoho l) Sex Assigned at Date Recorded Not on file documented as of this encounter Progress Notes Keyla Ann [facility] - 09/21/2021 11:59 PM CDTSummary: [facility] Infusion Skilled Nurse [...] 240 lbs. PIV placed in left AC, two attempts. Pre medicated with Tylenol 650 mg po and Zyrtec 10 mg po. Infusion completed without complication or reaction. Pt reports therapy is effective in managing symptoms related to therapy. MALLORY [phone] documented in this encounter Plan of Treatment Not on filedocumented as of this encounter Visit Diagnoses Not on filedocumented in this encounter Care Teams Garage Laborer Relationship Specialty Start Date End Date No Ref-Primary, Physician PCP - General 03/09/20 documented as of this encounter
--- OUTSIDE RECORDS SUMMARY | 2021-11-24 01:01 | XMS_ITS | Encounter Summary ---
:1975 Author Organization [place] Address [address] [facility] [place] [address] Care Team Providers Name Role Phone No Ref-Primary, Physician Primary Care Provider [phone] Encounter Details Date Type Department Care Team Description 08/12/2021 Home Infusion [facility] Romina Mer[facility], [facility] [address] [place], [place] [phone] [address] [facility] [phone] [place] [address] (Wo rk) Social History Tobacco Use Types Packs/Day Years Used Date Smoking Tobacco: Never Alcohol Use Standard Drinks/Week Comments No 0 (1 standard drink = 0.6 oz pure alcoho l) Sex Assigned at Date Recorded Not on file documented as of this encounter Progress Notes Connie Melvin - 08/12/2021 11:59 PM CDT This is a recent snapshot of the patient's [facility] medical record. For current drug dose and complete information and questions, call [phone] or In amanda Nicholson [facility] ([id number]) CSN Number: [id number] documented in this encounter Plan of Treatment Not on filedocumented as of this encounter Visit Diagnoses Not on filedocumented in this encounter Care Teams Intermediate School Teacher Relationship Specialty Start Date End Date No Ref-Primary, Physician PCP - General 03/09/20 documented as of this encounter
--- OUTSIDE RECORDS SUMMARY | 2021-11-24 01:01 | XMS_ITS | Encounter Summary ---
:1975 Author Organization [place] Address [address] [facility] [place] [address] Care Team Providers Name Role Phone No Ref-Primary, Physician Primary Care Provider [phone] Encounter Details Date Type Department Care Team Description 10/30/2021 Home Infusion [facility] Romina [facility], [facility] [address] [place], [place] [phone] [place] [address] [place] [address] (Wo rk) Social History Tobacco Use Types Packs/Day Years Used Date Smoking Tobacco: Never Alcohol Use Standard Drinks/Week Comments No 0 (1 standard drink = 0.6 oz pure alcoho l) Sex Assigned at Date Recorded Not on file documented as of this encounter Progress Notes Karina Lo - 10/30/2021 11:59 PM CDT This is a recent snapshot of the patient's [facility] medical record. For current drug dose and complete information and questions, call [phone] or In [facility]i [facility] ([id number]) CSN Number: [id number] documented in this encounter Plan of Treatment Not on filedocumented as of this encounter Visit Diagnoses Not on filedocumented in this encounter Care Teams Night Guard Relationship Specialty Start Date End Date No Ref-Primary, Physician PCP - General 03/09/20 documented as of this encounter
[2021-11-24 01:02] LABS: Basophils Absolute Auto 0.04 K/uL (0.00-0.30); Basophils Percent Auto 0.4 % (0.0-3.0); Eosinophils Absolute Auto 0.07 K/uL (0.00-0.50); Eosinophils Percent Auto 0.8 % (0.0-7.0); Hematocrit 40.2 % (33.0-51.0); Hemoglobin* 13.3 gm/dL (12.0-16.0); Immature Granulocytes Abs Auto 0.02 K/uL (0.00-0.30); Lymphocytes Absolute Auto 2.36 K/uL (0.90-2.90); Lymphocytes Percent Auto 26.5 % (20-44); Mean Corpuscular HGB Conc 33 gm/dL (32-36); Mean Corpuscular Hemoglobin 30 pg (26-34); Mean Corpuscular Volume 92 fL (80-100); Monocytes Percent Auto 7.2 % (0.0-11.0); Neutrophils Absolute Auto 5.78 K/uL (1.7-7.0); Neutrophils Percent Auto 64.9 % (42.0-72.0); Platelet Count* 276 K/uL (140-440); RDW Coefficient of Variation % 13.3 % (11.5-15.5); Red Blood Count 4.38 m/uL (4.00-5.20); White Blood Count* 8.91 K/uL (4.50-11.00)
--- OUTSIDE RECORDS SUMMARY | 2021-11-24 01:02 | XMS_ITS | Encounter Summary ---
:1975 Author Organization [place] Address [address] [facility] [place] [address] Care Team Providers Name Role Phone No Ref-Primary, Physician Primary Care Provider [phone] Encounter Details Date Type Department Care Team Description 11/21/2020 Home Infusion [facility] Romina Mer[facility], [facility] [address] [place], [place] [phone] [place] [address] [place] [address] (Wo rk) Social History Tobacco Use Types Packs/Day Years Used Date Smoking Tobacco: Never Alcohol Use Standard Drinks/Week Comments No 0 (1 standard drink = 0.6 oz pure alcoho l) Sex Assigned at Date Recorded Not on file documented as of this encounter Progress Notes Karina Lo - 11/21/2020 11:59 PM CDT This is a recent snapshot of the patient's [facility] medical record. For current drug dose and complete information and questions, call [phone] or In [facility] ([id number]) CSN Number: [id number] documented in this encounter Plan of Treatment Not on filedocumented as of this encounter Visit Diagnoses Not on filedocumented in this encounter Care Teams Netting Inspector Relationship Specialty Start Date End Date No Ref-Primary, Physician PCP - General 03/09/20 documented as of this encounter
--- OUTSIDE RECORDS SUMMARY | 2021-11-24 01:02 | XMS_ITS | Encounter Summary ---
:1975 Author Organization [place] Address [address] [facility] [place] [address] Care Team Providers Name Role Phone No Ref-Primary, Physician Primary Care Provider Encounter Details Date Type Department Care Team Description 04/02/2021 Home Infusion [facility] Rom[facility], [facility] [address] [place], [place] [phone] [address] [facility] [phone] [place] [address] (Wo rk) Social History Tobacco Use Types Packs/Day Years Used Date Smoking Tobacco: Never Alcohol Use Standard Drinks/Week Comments No 0 (1 standard drink = 0.6 oz pure alcoho l) Sex Assigned at Date Recorded Not on file documented as of this encounter Progress Notes Heide Churchill - 04/02/2021 11:59 PM CST This is a recent snapshot of the patient's [facility] medical record. For current drug dose and complete information and questions, call [phone] or In amanda Nicholson [facility] ([id number]) CSN Number: [id number] documented in this encounter Plan of Treatment Not on filedocumented as of this encounter Visit Diagnoses Not on filedocumented in this encounter Care Teams Arresting Gear Operator Relationship Specialty Start Date End Date No Ref-Primary, Physician PCP - General 03/09/20 documented as of this encounter
--- OUTSIDE RECORDS SUMMARY | 2021-11-24 01:02 | XMS_ITS | Encounter Summary ---
:1975 Author Organization [place] Address [address] [facility] [address] Care Team Providers Name Role Phone No Ref-Primary, Physician Primary Care Provider [phone] Encounter Details Date Type Department Care Team Description 07/21/2020 Home Infusion [facility] Romina Meraz, [facility] [address] [place], [place] [phone] [place] [address] [place] [address] (Wo rk) Social History Tobacco Use Types Packs/Day Years Used Date Smoking Tobacco: Never Alcohol Use Standard Drinks/Week Comments No 0 (1 standard drink = 0.6 oz pure alcoho l) Sex Assigned at Date Recorded Not on file documented as of this encounter Progress Notes Zbigniew Dotson - 07/21/2020 11:59 PM CDT This is a recent snapshot of the patient's [facility] medical record. For current drug dose and complete information and questions, call [phone] or In amanda Nicholson [facility] ([id number]) CSN Number: [id number] documented in this encounter Plan of Treatment Not on filedocumented as of this encounter Visit Diagnoses Not on filedocumented in this encounter Care Teams Financial Market Dealer Relationship Specialty Start Date End Date No Ref-Primary, Physician PCP - General 03/09/20 documented as of this encounter
--- OUTSIDE RECORDS SUMMARY | 2021-11-24 01:02 | XMS_ITS | Encounter Summary ---
:1975 Author Organization [place] Address [address] [facility] [place] [address] Care Team Providers Name Role Phone No Ref-Primary, Physician Primary Care Provider Encounter Details Date Type Department Care Team Description 03/28/2020 Home Infusion [facility] Romina Mer[facility], [facility] [address] [place], [place] [phone] 395 [facility] [phone] [place] [address] (Wo rk) Social History Tobacco Use Types Packs/Day Years Used Date Smoking Tobacco: Never Alcohol Use Standard Drinks/Week Comments No 0 (1 standard drink = 0.6 oz pure alcoho l) Sex Assigned at Date Recorded Not on file COVID-19 Exposure Response Date Recorded In the last month, have you been in contact with No / Unsure 03/09/2020 3:39 AM RESIDENCE SUPERVISOR someone who was confirmed or suspected to have Coronavirus / COVID-19? documented as of this encounter Progress Notes Bree Desir - 03/28/2020 11:59 PM CST This is a recent snapshot of the patient's [facility] medical record. For current drug dose and complete information and questions, call [phone] or In [employer] [place] ([id number]) CSN Number: [id number] DENCE SUPERVISOR documented in this encounter Plan of Treatment Not on filedocumented as of this encounter Visit Diagnoses Not on filedocumented in this encounter Care Teams B And B Gang Worker Relationship Specialty Start Date End Date No Ref-Primary, Physician PCP - General 03/09/20 documented as of this encounter
--- OUTSIDE RECORDS SUMMARY | 2021-11-24 01:02 | XMS_ITS | Encounter Summary ---
:1975 Author Organization [place] Address [address] [place] [address] Care Team Providers Name Role Phone No Ref-Primary, Physician Primary Care Provider [phone] Encounter Details Date Type Department Care Team Description 06/20/2020 Home Infusion [facility] Romina Meraz, [facility] [address] [place], [place] [phone] [place] [address] [place] [address] (Wo rk) Social History Tobacco Use Types Packs/Day Years Used Date Smoking Tobacco: Never Alcohol Use Standard Drinks/Week Comments No 0 (1 standard drink = 0.6 oz pure alcoho l) Sex Assigned at Date Recorded Not on file documented as of this encounter Progress Notes Anjali Browne - 06/20/2020 11:59 PM CDT This is a recent snapshot of the patient's [facility] medical record. For current drug dose and complete information and questions, call [phone] or In Marii centeno [facility] ([id number]) CSN Number: [id number] documented in this encounter Plan of Treatment Not on filedocumented as of this encounter Visit Diagnoses Not on filedocumented in this encounter Care Teams Soap Boiler Relationship Specialty Start Date End Date No Ref-Primary, Physician PCP - General 03/09/20 documented as of this encounter
--- OUTSIDE RECORDS SUMMARY | 2021-11-24 01:02 | XMS_ITS | Encounter Summary ---
:1975 Author Organization [place] Address [address] [facility] [place] [address] Care Team Providers Name Role Phone No Ref-Primary, Physician Primary Care Provider Encounter Details Date Type Department Care Team Description 05/20/2020 Home Infusion [facility] [facility] Romina Meraz, [facility] [address] [place], [place] [phone] [place] [address] [place] [address] (Wo rk) Social History Tobacco Use Types Packs/Day Years Used Date Smoking Tobacco: Never Alcohol Use Standard Drinks/Week Comments No 0 (1 standard drink = 0.6 oz pure alcoho l) Sex Assigned at Date Recorded Not on file documented as of this encounter Progress Notes Bree Desir - 05/20/2020 11:59 PM CDT This is a recent snapshot of the patient's [facility] medical record. For current drug dose and complete information and questions, call [phone] or In [employer] [facility] ([id number]) CSN Number: [id number] documented in this encounter Plan of Treatment Not on filedocumented as of this encounter Visit Diagnoses Not on filedocumented in this encounter Care Teams Cell Coverer Relationship Specialty Start Date End Date No Ref-Primary, Physician PCP - General 03/09/20 documented as of this encounter
--- OUTSIDE RECORDS SUMMARY | 2021-11-24 01:02 | XMS_ITS | Encounter Summary ---
:1975 Author Organization [place] Address [address] [facility] [place] [address] Care Team Providers Name Role Phone No Ref-Primary, Physician Primary Care Provider [phone] Encounter Details Date Type Department Care Team Description 07/08/2020 Home Infusion [facility] Romina Meraz, [facility] [address] [place], [place] [phone] [place] [address] [place] [address] (Wo rk) Social History Tobacco Use Types Packs/Day Years Used Date Smoking Tobacco: Never Alcohol Use Standard Drinks/Week Comments No 0 (1 standard drink = 0.6 oz pure alcoho l) Sex Assigned at Date Recorded Not on file documented as of this encounter Progress Notes Anjali Browne - 07/08/2020 11:59 PM CDT This is a recent snapshot of the patient's [facility] medical record. For current drug dose and complete information and questions, call [phone] or In amanda Nicholson [facility] ([id number]) CSN Number: [id number] documented in this encounter Plan of Treatment Not on filedocumented as of this encounter Visit Diagnoses Not on filedocumented in this encounter Care Teams Appeals Referee Relationship Specialty Start Date End Date No Ref-Primary, Physician PCP - General 03/09/20 documented as of this encounter
--- OUTSIDE RECORDS SUMMARY | 2021-11-24 01:02 | XMS_ITS | Encounter Summary ---
:1975 Author Organization [place] Address [address] [facility] [place] [address] Care Team Providers Name Role Phone No Ref-Primary, Physician Primary Care Provider Encounter Details Date Type Department Care Team Description 06/18/2020 Home Infusion [place] [facility] Romina Meraz, [facility] [address] [place], [place] [phone] 500 [facility] [phone] [place] [address] (Wo rk) Social History Tobacco Use Types Packs/Day Years Used Date Smoking Tobacco: Never Alcohol Use Standard Drinks/Week Comments No 0 (1 standard drink = 0.6 oz pure alcoho l) Sex Assigned at Date Recorded Not on file documented as of this encounter Progress Notes Bree Desir - 06/18/2020 11:59 PM CDT This is a recent snapshot of the patient's [facility] medical record. For current drug dose and complete information and questions, call [phone] or In [facility] t[facility] ([id number]) CSN Number: [id number] documented in this encounter Plan of Treatment Not on filedocumented as of this encounter Visit Diagnoses Not on filedocumented in this encounter Care Teams Tree Surgeon Helper Relationship Specialty Start Date End Date No Ref-Primary, Physician PCP - General 03/09/20 documented as of this encounter
--- OUTSIDE RECORDS SUMMARY | 2021-11-24 01:02 | XMS_ITS | Encounter Summary ---
:1975 Author Organization [place] Address [address] [facility] [place] [address] Care Team Providers Name Role Phone No Ref-Primary, Physician Primary Care Provider Encounter Details Date Type Department Care Team Description 07/02/2020 Home Infusion [place] [facility] Romina Meraz, [facility] [address] [place], [place] [phone] [place] [address] [place] [address] (Wo rk) Social History Tobacco Use Types Packs/Day Years Used Date Smoking Tobacco: Never Alcohol Use Standard Drinks/Week Comments No 0 (1 standard drink = 0.6 oz pure alcoho l) Sex Assigned at Date Recorded Not on file documented as of this encounter Progress Notes Perla Amos - 07/02/2020 11:59 PM CDT This is a recent snapshot of the patient's [facility] medical record. For current drug dose and complete information and questions, call [phone] or In [facility] [facility] ([id number]) CSN Number: [id number] documented in this encounter Plan of Treatment Not on filedocumented as of this encounter Visit Diagnoses Not on filedocumented in this encounter Care Teams Rn Orthopaedics Relationship Specialty Start Date End Date No Ref-Primary, Physician PCP - General 03/09/20 documented as of this encounter
--- OUTSIDE RECORDS SUMMARY | 2021-11-24 01:02 | XMS_ITS | Encounter Summary ---
:1975 Author Organization [place] Address Formerly [facility] [place] [address] Care Team Providers Name Role Phone No Ref-Primary, Physician Primary Care Provider Encounter Details Date Type Department Care Team Description 10/13/2020 Home Infusion [facility] [facility] Romina Meraz, [facility] [address] [place], [place] [phone] [place] [address] [place] [address] (Wo rk) Social History Tobacco Use Types Packs/Day Years Used Date Smoking Tobacco: Never Alcohol Use Standard Drinks/Week Comments No 0 (1 standard drink = 0.6 oz pure alcoho l) Sex Assigned at Date Recorded Not on file documented as of this encounter Progress Notes Zbigniew Dotson - 10/13/2020 11:59 PM CDT This is a recent snapshot of the patient's [facility] medical record. For current drug dose and complete information and questions, call [phone] or In amanda Nicholson [facility] ([id number]) CSN Number: [id number] documented in this encounter Plan of Treatment Not on filedocumented as of this encounter Visit Diagnoses Not on filedocumented in this encounter Care Teams Green Chain Marker Relationship Specialty Start Date End Date No Ref-Primary, Physician PCP - General 03/09/20 documented as of this encounter
--- OUTSIDE RECORDS SUMMARY | 2021-11-24 01:02 | XMS_ITS | Encounter Summary ---
:1975 Author Organization [place] Address [address] [facility] [place] [address] Care Team Providers Name Role Phone No Ref-Primary, Physician Primary Care Provider Encounter Details Date Type Department Care Team Description 05/12/2020 Home Infusion [place] [facility] Romina Meraz, [facility] [address] [place], [place] [phone] [place] [address] [place] [address] (Wo rk) Social History Tobacco Use Types Packs/Day Years Used Date Smoking Tobacco: Never Alcohol Use Standard Drinks/Week Comments No 0 (1 standard drink = 0.6 oz pure alcoho l) Sex Assigned at Date Recorded Not on file documented as of this encounter Progress Notes Denise Fields - 05/12/2020 11:59 PM CDT This is a recent snapshot of the patient's [facility] medical record. For current drug dose and complete information and questions, call [phone] or In [facility] ([id number]) CSN Number: [id number] documented in this encounter Plan of Treatment Not on filedocumented as of this encounter Visit Diagnoses Not on filedocumented in this encounter Care Teams Green Prize Packer Relationship Specialty Start Date End Date No Ref-Primary, Physician PCP - General 1/24/21 documented as of this encounter
--- OUTSIDE RECORDS SUMMARY | 2021-11-24 01:02 | XMS_ITS | Encounter Summary ---
:1975 Author Organization [place] Address [address] [facility] [place] [address] Care Team Providers Name Role Phone No Ref-Primary, Physician Primary Care Provider Encounter Details Date Type Department Care Team Description 05/09/2020 Home Infusion [place] [facility] Romina Meraz, [facility] [address] [place], [place] [phone] [place] [address] [place] [address] (Wo rk) Social History Tobacco Use Types Packs/Day Years Used Date Smoking Tobacco: Never Alcohol Use Standard Drinks/Week Comments No 0 (1 standard drink = 0.6 oz pure alcoho l) Sex Assigned at Date Recorded Not on file documented as of this encounter Progress Notes Denise Fields - 05/09/2020 11:59 PM CDT This is a recent snapshot of the patient's [facility] medical record. For current drug dose and complete information and questions, call [phone] or In [facility] ([id number]) CSN Number: [id number] documented in this encounter Plan of Treatment Not on filedocumented as of this encounter Visit Diagnoses Not on filedocumented in this encounter Care Teams Television Antenna Installer Relationship Specialty Start Date End Date No Ref-Primary, Physician PCP - General 1/24/21 documented as of this encounter
--- OUTSIDE RECORDS SUMMARY | 2021-11-24 01:02 | XMS_ITS | Encounter Summary ---
:1975 Author Organization [place] Address [address] [facility] [place] [address] Care Team Providers Name Role Phone No Ref-Primary, Physician Primary Care Provider Encounter Details Date Type Department Care Team Description 11/25/2020 Home Infusion [facility] [facility] Romina Mer[facility], [facility] [address] [place], [place] [phone] [place] [address] [place] [address] (Wo rk) Social History Tobacco Use Types Packs/Day Years Used Date Smoking Tobacco: Never Alcohol Use Standard Drinks/Week Comments No 0 (1 standard drink = 0.6 oz pure alcoho l) Sex Assigned at Date Recorded Not on file documented as of this encounter Progress Notes David Argueta - 11/25/2020 11:59 PM CDT This is a recent snapshot of the patient's [facility] medical record. For current drug dose and complete information and questions, call [phone] or In amanda Nicholson [facility] ([id number]) CSN Number: [id number] L AND AXLE INSPECTOR documented in this encounter Plan of Treatment Not on filedocumented as of this encounter Visit Diagnoses Not on filedocumented in this encounter Care Teams Mixing Engineer Relationship Specialty Start Date End Date No Ref-Primary, Physician PCP - General 03/09/20 documented as of this encounter
--- OUTSIDE RECORDS SUMMARY | 2021-11-24 01:02 | XMS_ITS | Encounter Summary ---
:1975 Author Organization [place] Address [address] [place] [address] Care Team Providers Name Role Phone No Ref-Primary, Physician Primary Care Provider Encounter Details Date Type Department Care Team Description 09/03/2020 Home Infusion [place] [facility] Romina Meraz, [facility] [address] [place], [place] [phone] [place] [address] [place] [address] (Wo rk) Social History Tobacco Use Types Packs/Day Years Used Date Smoking Tobacco: Never Alcohol Use Standard Drinks/Week Comments No 0 (1 standard drink = 0.6 oz pure alcoho l) Sex Assigned at Date Recorded Not on file documented as of this encounter Progress Notes Karina Lo - 09/03/2020 11:59 PM CDT This is a recent snapshot of the patient's [facility] medical record. For current drug dose and complete information and questions, call [phone] or In [facility] ([id number] CSN Number: [id number] documented in this encounter Plan of Treatment Not on filedocumented as of this encounter Visit Diagnoses Not on filedocumented in this encounter Care Teams Cotton Program Technician Relationship Specialty Start Date End Date No Ref-Primary, Physician PCP - General 03/09/20 documented as of this encounter
--- OUTSIDE RECORDS SUMMARY | 2021-11-24 01:02 | XMS_ITS | Encounter Summary ---
:1975 Author Organization [place] Address [address] [facility] [place] [address] Care Team Providers Name Role Phone No Ref-Primary, Physician Primary Care Provider [phone] Encounter Details Date Type Department Care Team Description 07/30/2020 Home Infusion [place] [facility] Romina Meraz, [facility] [address] [place], [place] [phone] [place] [address] [place] [address] (Wo rk) Social History Tobacco Use Types Packs/Day Years Used Date Smoking Tobacco: Never Alcohol Use Standard Drinks/Week Comments No 0 (1 standard drink = 0.6 oz pure alcoho l) Sex Assigned at Date Recorded Not on file documented as of this encounter Progress Notes Sb Brasher - 07/30/2020 11:59 PM CDT This is a recent snapshot of the patient's [facility] medical record. For current drug dose and complete information and questions, call [phone] or In Marii centeno [facility] ([id number]) CSN Number: [id number] documented in this encounter Plan of Treatment Not on filedocumented as of this encounter Visit Diagnoses Not on filedocumented in this encounter Care Teams Instructional Aide Relationship Specialty Start Date End Date No Ref-Primary, Physician PCP - General 1/24/21 documented as of this encounter
--- OUTSIDE RECORDS SUMMARY | 2021-11-24 01:02 | XMS_ITS | Encounter Summary ---
:1975 Author Organization [place] Address [address] [facility] [place] [address] Care Team Providers Name Role Phone No Ref-Primary, Physician Primary Care Provider [phone] Encounter Details Date Type Department Care Team Description 06/23/2020 Home Infusion [place] [facility] Romina Meraz, [facility] [address] [place], [place] [phone] [place] [address] [place] [address] (Wo rk) Social History Tobacco Use Types Packs/Day Years Used Date Smoking Tobacco: Never Alcohol Use Standard Drinks/Week Comments No 0 (1 standard drink = 0.6 oz pure alcoho l) Sex Assigned at Date Recorded Not on file documented as of this encounter Progress Notes Bree Desir - 06/23/2020 11:59 PM CDT This is a recent snapshot of the patient's [facility] medical record. For current drug dose and complete information and questions, call [phone] or In Marii centeno [facility] ([id number]) CSN Number: [id number] documented in this encounter Plan of Treatment Not on filedocumented as of this encounter Visit Diagnoses Not on filedocumented in this encounter Care Teams Registered Nurse Midwife Relationship Specialty Start Date End Date No Ref-Primary, Physician PCP - General 03/09/20 documented as of this encounter
--- OUTSIDE RECORDS SUMMARY | 2021-11-24 01:02 | XMS_ITS | Encounter Summary ---
:1975 Author Organization [place] Address [address] [place] [address] Care Team Providers Name Role Phone No Ref-Primary, Physician Primary Care Provider Encounter Details Date Type Department Care Team Description 03/31/2021 Home Infusion [place] [facility] Romina Meraz, [facility] [address] [place], [place] [address] [phone] [facility] [phone] [place] [address] (Wo rk) Social History Tobacco Use Types Packs/Day Years Used Date Smoking Tobacco: Never Alcohol Use Standard Drinks/Week Comments No 0 (1 standard drink = 0.6 oz pure alcoho l) Sex Assigned at Date Recorded Not on file documented as of this encounter Progress Notes Heide Churchill - 03/31/2021 11:59 PM CST This is a recent snapshot of the patient's [facility] medical record. For current drug dose and complete information and questions, call [phone] or In amanda Nicholson [facility] ([id number]) CSN Number: [id number] documented in this encounter Plan of Treatment Not on filedocumented as of this encounter Visit Diagnoses Not on filedocumented in this encounter Care Teams Sample Maker Relationship Specialty Start Date End Date No Ref-Primary, Physician PCP - General 03/09/20 documented as of this encounter
--- OUTSIDE RECORDS SUMMARY | 2021-11-24 01:02 | XMS_ITS | Encounter Summary ---
:1975 Author Organization [place] Address [address] [facility] [place] [address] Care Team Providers Name Role Phone No Ref-Primary, Physician Primary Care Provider Reason for Visit Reason Comments Home Infusion [facility] Infusion Encounter Details Date Type Department Care Team Description 01/05/2021 Documentation Only [facility] Infusion VÍCTOR Natarajan ([facility] In[facility]) [address] [place] [address] Social History Tobacco Use Types Packs/Day Years Used Date Smoking Tobacco: Never Alcohol Use Standard Drinks/Week Comments No 0 (1 standard drink = 0.6 oz pure alcoho l) Sex Assigned at Date Recorded Not on file documented as of this encounter Progress Notes Keyla Ann CRNI - 01/05/2021 11:59 PM CSTSummary: Rem[facility] Infusion Skilled Nurse visit in the [...] in managing symptoms related to therapy. [email or web address] [phone] ER CORE TESTER documented in this encounter Plan of Treatment Not on filedocumented as of this encounter Visit Diagnoses Not on filedocumented in this encounter Care Teams Airbrush Artist Technical Relationship Specialty Start Date End Date No Ref-Primary, Physician PCP - General 03/09/20 documented as of this encounter
--- OUTSIDE RECORDS SUMMARY | 2021-11-24 01:02 | XMS_ITS | Encounter Summary ---
:1975 Author Organization [place] Address [facility] [place] [address] Care Team Providers Name Role Phone No Ref-Primary, Physician Primary Care Provider Encounter Details Date Type Department Care Team Description 07/23/2020 Home Infusion [place] [facility] Romina Meraz, [facility] [address] [place], [place] [phone] [place] [address] [place] [address] (Wo rk) Social History Tobacco Use Types Packs/Day Years Used Date Smoking Tobacco: Never Alcohol Use Standard Drinks/Week Comments No 0 (1 standard drink = 0.6 oz pure alcoho l) Sex Assigned at Date Recorded Not on file documented as of this encounter Progress Notes Zbigniew Dotson - 07/23/2020 11:59 PM CDT This is a recent snapshot of the patient's [facility] [facility] medical record. For current drug dose and complete information and questions, call [phone] or In amanda Nicholson home[facility]usion ([id number]) CSN Number: [id number] documented in this encounter Plan of Treatment Not on filedocumented as of this encounter Visit Diagnoses Not on filedocumented in this encounter Care Teams Automobile Designer Relationship Specialty Start Date End Date No Ref-Primary, Physician PCP - General 03/09/20 documented as of this encounter
--- OUTSIDE RECORDS SUMMARY | 2021-11-24 01:02 | XMS_ITS | Encounter Summary ---
:1975 Author Organization [place] Address [address] [facility] [place] [address] Care Team Providers Name Role Phone No Ref-Primary, Physician Primary Care Provider Encounter Details Date Type Department Care Team Description 10/15/2020 Home Infusion [place] [facility] Romina Meraz, [facility] [address] [place], [place] [phone] [place] [address] [place] [address] (Wo rk) Social History Tobacco Use Types Packs/Day Years Used Date Smoking Tobacco: Never Alcohol Use Standard Drinks/Week Comments No 0 (1 standard drink = 0.6 oz pure alcoho l) Sex Assigned at Date Recorded Not on file documented as of this encounter Progress Notes Anjali Browne - 10/15/2020 11:59 PM CDT This is a recent snapshot of the patient's [facility] medical record. For current drug dose and complete information and questions, call [phone] or In [facility] ([id number]) CSN Number: [id number] documented in this encounter Plan of Treatment Not on filedocumented as of this encounter Visit Diagnoses Not on filedocumented in this encounter Care Teams Auto Transmission Specialist Relationship Specialty Start Date End Date No Ref-Primary, Physician PCP - General 03/09/20 documented as of this encounter
--- OUTSIDE RECORDS SUMMARY | 2021-11-24 01:02 | XMS_ITS | Encounter Summary ---
:1975 Author Organization [place] Address [address] [facility] [place] [address] Care Team Providers Name Role Phone No Ref-Primary, Physician Primary Care Provider Reason for Visit Reason Comments Home Infusion Rem[facility]ade Infusion Encounter Details Date Type Department Care Team Description 05/12/2020 Documentation Only [facility] Ke[facility]fusion Infusion VÍCTOR Natarajan ([facility] Infusion) [address] [place] [address] Social History Tobacco Use Types Packs/Day Years Used Date Smoking Tobacco: Never Alcohol Use Standard Drinks/Week Comments No 0 (1 standard drink = 0.6 oz pure alcoho l) Sex Assigned at Date Recorded Not on file documented as of this encounter Progress Notes Keyla Ann CRNI - 05/12/2020 11:59 PM CDTSummary: Remicade Infusion Skilled Nurse visit in the patient home to administer Remicade 500 mg IV. No recent elevated temperature, fever, chills, productive cough, coughing for 3 weeks or longer or hemoptysis, abnormal vital signs, night sweats, chest pain. No decrease in appetite, unexplained weight loss or fatigue. No othernew onset medical symptoms. Current weight 220 lbs. PIV placed in left hand, one attempt. Pre medicated with Tylenol 650 mg po and Zyrtec 10 mg po. Infusion completed without complication or reaction. Pt reports therapy is effective in managing symptoms related to therapy. [email or web address] [phone] documented in this encounter Plan of Treatment Not on filedocumented as of this encounter Visit Diagnoses Not on filedocumented in this encounter Care Teams Client Professional Relationship Specialty Start Date End Date No Ref-Primary, Physician PCP - General 03/09/20 documented as of this encounter
--- OUTSIDE RECORDS SUMMARY | 2021-11-24 01:02 | XMS_ITS | Encounter Summary ---
:1975 Author Organization [place] Address [address] [facility] [place] [address] Care Team Providers Name Role Phone No Ref-Primary, Physician Primary Care Provider Encounter Details Date Type Department Care Team Description 03/13/2020 Home Infusion [place] [facility] Romina Meraz, [facility] [address] [place], [place] [address] [phone] [facility] [phone] [place] [address] (Wo rk) Social History Tobacco Use Types Packs/Day Years Used Date Smoking Tobacco: Never Alcohol Use Standard Drinks/Week Comments No 0 (1 standard drink = 0.6 oz pure alcoho l) Sex Assigned at Date Recorded Not on file COVID-19 Exposure Response Date Recorded In the last month, have you been in contact with No / Unsure 03/09/2020 3:39 AM BAKER BISCUIT someone who was confirmed or suspected to have Coronavirus / COVID-19? documented as of this encounter Progress Notes Bree Desir - 03/13/2020 11:59 PM CST This is a recent snapshot of the patient's [place] [facility] medical record. For current drug dose and complete information and questions, call [phone] or In [employer] [place], homeinfusion ([id number]) CSN Number: [id number] R BISCUIT documented in this encounter Plan of Treatment Not on filedocumented as of this encounter Visit Diagnoses Not on filedocumented in this encounter Care Teams District Manager Primary Care Sales Relationship Specialty Start Date End Date No Ref-Primary, Physician PCP - General 03/09/20 documented as of this encounter
--- OUTSIDE RECORDS SUMMARY | 2021-11-24 01:02 | XMS_ITS | Encounter Summary ---
:1975 Author Organization [place] Address [facility] [address] Care Team Providers Name Role Phone No Ref-Primary, Physician Primary Care Provider Encounter Details Date Type Department Care Team Description 03/26/2020 Home Infusion [place] [facility] Romina Meraz, [facility] [address] [place], [place] [phone] [facility] [phone] [place] [address] (Wo rk) Social History Tobacco Use Types Packs/Day Years Used Date Smoking Tobacco: Never Alcohol Use Standard Drinks/Week Comments No 0 (1 standard drink = 0.6 oz pure alcoho l) Sex Assigned at Date Recorded Not on file COVID-19 Exposure Response Date Recorded In the last month, have you been in contact with No / Unsure 03/09/2020 3:39 AM ASSISTANT DIRECTOR OF PLANT OPERATIONS someone who was confirmed or suspected to have Coronavirus / COVID-19? documented as of this encounter Progress Notes David Argueta - 03/26/2020 11:59 PM CST This is a recent snapshot of the patient's [facility] medical record. For current drug dose and complete information and questions, call [phone] or In [employer] [place], [facility] ([id number]) CSN Number: [id number] STANT DIRECTOR OF PLANT OPERATIONS documented in this encounter Plan of Treatment Not on filedocumented as of this encounter Visit Diagnoses Not on filedocumented in this encounter Care Teams Newspaper Editor Managing Relationship Specialty Start Date End Date No Ref-Primary, Physician PCP - General 03/09/20 documented as of this encounter
--- OUTSIDE RECORDS SUMMARY | 2021-11-24 01:02 | XMS_ITS | Encounter Summary ---
:1975 Author Organization [place] Address [address] [facility] [place] [address] Care Team Providers Name Role Phone No Ref-Primary, Physician Primary Care Provider Encounter Details Date Type Department Care Team Description 03/26/2021 Home Infusion [place] [facility] Romina Meraz, [facility] [address] [place], [place] [phone] 7[address] [facility] [phone] [place] [address] (Wo rk) Social History Tobacco Use Types Packs/Day Years Used Date Smoking Tobacco: Never Alcohol Use Standard Drinks/Week Comments No 0 (1 standard drink = 0.6 oz pure alcoho l) Sex Assigned at Date Recorded Not on file documented as of this encounter Progress Notes Lynn Busch - 03/26/2021 11:59 PM CST This is a recent snapshot of the patient's [facility] medical record. For current drug dose and complete information and questions, call [phone] or In Marii centeno home[facility] ([id number]) CSN Number: [id number] documented in this encounter Plan of Treatment Not on filedocumented as of this encounter Visit Diagnoses Not on filedocumented in this encounter Care Teams Coin Machine Collector Relationship Specialty Start Date End Date No Ref-Primary, Physician PCP - General 03/09/20 documented as of this encounter
--- OUTSIDE RECORDS SUMMARY | 2021-11-24 01:02 | XMS_ITS | Encounter Summary ---
:1975 Author Organization [place] Address [address] [facility] [place] [address] Care Team Providers Name Role Phone No Ref-Primary, Physician Primary Care Provider Encounter Details Date Type Department Care Team Description 04/01/2021 Home Infusion [place] [facility] Romina Meraz, [facility] [address] [place], [place] [phone] [address] [facility] [phone] [place] [address] (Wo rk) Social History Tobacco Use Types Packs/Day Years Used Date Smoking Tobacco: Never Alcohol Use Standard Drinks/Week Comments No 0 (1 standard drink = 0.6 oz pure alcoho l) Sex Assigned at Date Recorded Not on file documented as of this encounter Progress Notes Lynn Busch - 04/01/2021 11:59 PM CST This is a recent snapshot of the patient's [place] [facility] medical record. For current drug dose and complete information and questions, call [phone] or In Marii centeno [facility] ([id number]) CSN Number: [id number] documented in this encounter Plan of Treatment Not on filedocumented as of this encounter Visit Diagnoses Not on filedocumented in this encounter Care Teams Law Professor Relationship Specialty Start Date End Date No Ref-Primary, Physician PCP - General 03/09/20 documented as of this encounter
--- OUTSIDE RECORDS SUMMARY | 2021-11-24 01:02 | XMS_ITS | Encounter Summary ---
:1975 Author Organization [place] Address [facility] [place] [address] Care Team Providers Name Role Phone No Ref-Primary, Physician Primary Care Provider Encounter Details Date Type Department Care Team Description 07/03/2020 Home Infusion [place] [facility] Romina Meraz, [facility] [address] [place], [place] [phone] [place] [address] [place] [address] (Wo rk) Social History Tobacco Use Types Packs/Day Years Used Date Smoking Tobacco: Never Alcohol Use Standard Drinks/Week Comments No 0 (1 standard drink = 0.6 oz pure alcoho l) Sex Assigned at Date Recorded Not on file documented as of this encounter Progress Notes Zbigniew Dotson - 07/03/2020 11:59 PM CDT This is a recent snapshot of the patient's [facility] medical record. For current drug dose and complete information and questions, call [phone] or In amanda Nicholson home[facility]usion ([id number]) CSN Number: [id number] documented in this encounter Plan of Treatment Not on filedocumented as of this encounter Visit Diagnoses Not on filedocumented in this encounter Care Teams Airconditioning Drafting Officer Relationship Specialty Start Date End Date No Ref-Primary, Physician PCP - General 03/09/20 documented as of this encounter
--- OUTSIDE RECORDS SUMMARY | 2021-11-24 01:02 | XMS_ITS | Encounter Summary ---
:1975 Author Organization [place] Address [address] [facility] [place] [address] Care Team Providers Name Role Phone No Ref-Primary, Physician Primary Care Provider Reason for Visit Reason Comments Home Infusion Encounter Details Date Type Department Care Team Description 04/01/2021 Documentation Only [place] [facility] Keyla Ann, Home Infusion [address] [place] [address] Social History Tobacco Use Types Packs/Day Years Used Date Smoking Tobacco: Never Alcohol Use Standard Drinks/Week Comments No 0 (1 standard drink = 0.6 oz pure alcoho l) Sex Assigned at Date Recorded Not on file documented as of this encounter Progress Notes Keyla Ann CRNI - 04/01/2021 11:59 PM CSTSummary: Remicade Infusion Skilled Nurse visit in the patient home to administer Remicade 500 mg IV. No recent elevated temperature, fever, chills, coughing for 3 weeks or longer or hemoptysis, abnormal vital signs, night sweats, chest pain. No decrease in appetite, unexplained weight loss or fatigue. Patient recovering from cold symptoms, COVID testing negative. Current weight 240 lbs. PIV placed in left AC, two attempts. Premedicated with Zyrtec 10 mg po and Tylenol 650 mg po. Infusion completed without complication or reaction. Pt reports therapy is helpful in managing symptoms related to therapy. MALLORY [phone] ATIC DIRECTOR documented in this encounter Plan of Treatment Not on filedocumented as of this encounter Visit Diagnoses Not on filedocumented in this encounter Care Teams Bar Roller Relationship Specialty Start Date End Date No Ref-Primary, Physician PCP - General 03/09/20 documented as of this encounter
--- OUTSIDE RECORDS SUMMARY | 2021-11-24 01:02 | XMS_ITS | Encounter Summary ---
:1975 Author Organization [place] Address [address] [facility] [place] [address] Care Team Providers Name Role Phone No Ref-Primary, Physician Primary Care Provider Encounter Details Date Type Department Care Team Description 01/05/2021 Home Infusion [place] [facility] Romina Meraz, [facility] [address] [place], [place] [phone] [place] [address] [place] [address] (Wo rk) Social History Tobacco Use Types Packs/Day Years Used Date Smoking Tobacco: Never Alcohol Use Standard Drinks/Week Comments No 0 (1 standard drink = 0.6 oz pure alcoho l) Sex Assigned at Date Recorded Not on file documented as of this encounter Progress Notes Karina Lo - 01/05/2021 11:59 PM CST This is a recent snapshot of the patient's [place] [facility] medical record. For current drug dose and complete information and questions, call [phone] or In Marii centeno home[facility]usion ([id number]) CSN Number: [id number] ING MANAGEMENT OFFICER documented in this encounter Plan of Treatment Not on filedocumented as of this encounter Visit Diagnoses Not on filedocumented in this encounter Care Teams Customer Service Teller Relationship Specialty Start Date End Date No Ref-Primary, Physician PCP - General 1/24/21 documented as of this encounter
--- OUTSIDE RECORDS SUMMARY | 2021-11-24 01:02 | XMS_ITS | Encounter Summary ---
:1975 Author Organization [place] Address [address] [facility] [place] [address] Care Team Providers Name Role Phone No Ref-Primary, Physician Primary Care Provider [phone] Encounter Details Date Type Department Care Team Description 02/17/2021 Home Infusion [place] [facility] Romina Meraz, [facility] [address] [place], [place] [phone] [facility] [phone] [place] [address] (Wo rk) Social History Tobacco Use Types Packs/Day Years Used Date Smoking Tobacco: Never Alcohol Use Standard Drinks/Week Comments No 0 (1 standard drink = 0.6 oz pure alcoho l) Sex Assigned at Date Recorded Not on file documented as of this encounter Progress Notes Lynn Busch - 02/17/2021 11:59 PM CST This is a recent snapshot of the patient's [place] [facility] medical record. For current drug dose and complete information and questions, call [phone] or In Marii centeno homeinfusion ([id number]) CSN Number: [id number] documented in this encounter Plan of Treatment Not on filedocumented as of this encounter Visit Diagnoses Not on filedocumented in this encounter Care Teams E Learning Developer Relationship Specialty Start Date End Date No Ref-Primary, Physician PCP - General 03/09/20 documented as of this encounter
--- OUTSIDE RECORDS SUMMARY | 2021-11-24 01:02 | XMS_ITS | Encounter Summary ---
:1975 Author Organization [place] Address [address] [facility] [place] [address] Care Team Providers Name Role Phone No Ref-Primary, Physician Primary Care Provider Encounter Details Date Type Department Care Team Description 09/01/2020 Home Infusion [facility] Romina Meraz, [facility] [address] [place], [place] [phone] [place] [address] [place] [address] (Wo rk) Social History Tobacco Use Types Packs/Day Years Used Date Smoking Tobacco: Never Alcohol Use Standard Drinks/Week Comments No 0 (1 standard drink = 0.6 oz pure alcoho l) Sex Assigned at Date Recorded Not on file documented as of this encounter Progress Notes Karina Lo - 09/01/2020 11:59 PM CDT This is a recent snapshot of the patient's [facility] medical record. For current drug dose and complete information and questions, call [phone] or In [facility] ([id number]) CSN Number: [id number] documented in this encounter Plan of Treatment Not on filedocumented as of this encounter Visit Diagnoses Not on filedocumented in this encounter Care Teams Spin Table Operator Relationship Specialty Start Date End Date No Ref-Primary, Physician PCP - General 03/09/20 documented as of this encounter
--- OUTSIDE RECORDS SUMMARY | 2021-11-24 01:02 | XMS_ITS | Encounter Summary ---
:1975 Author Organization [place] Address [address] [facility] [place] [address] Care Team Providers Name Role Phone No Ref-Primary, Physician Primary Care Provider Encounter Details Date Type Department Care Team Description 02/16/2021 Home Infusion [facility] Romina Mer[facility], [facility] [address] [place], [place] [phone] [address] [facility] [phone] [place] [address] (Wo rk) Social History Tobacco Use Types Packs/Day Years Used Date Smoking Tobacco: Never Alcohol Use Standard Drinks/Week Comments No 0 (1 standard drink = 0.6 oz pure alcoho l) Sex Assigned at Date Recorded Not on file documented as of this encounter Progress Notes Lynn Busch - 02/16/2021 11:59 PM CST This is a recent snapshot of the patient's [facility] medical record. For current drug dose and complete information and questions, call [phone] or In [facility] cent[facility] ([id number]) CSN Number: [id number] documented in this encounter Plan of Treatment Not on filedocumented as of this encounter Visit Diagnoses Not on filedocumented in this encounter Care Teams Brick Extruder Operator Relationship Specialty Start Date End Date No Ref-Primary, Physician PCP - General 03/09/20 documented as of this encounter
--- OUTSIDE RECORDS SUMMARY | 2021-11-24 01:02 | XMS_ITS | Encounter Summary ---
:1975 Author Organization [place] Address [address] [facility] [place] [address] Care Team Providers Name Role Phone No Ref-Primary, Physician Primary Care Provider [phone] Encounter Details Date Type Department Care Team Description 02/11/2021 Home Infusion [facility], [facility] [address] [place], [place] [phone] [place] [address] [place] [address] (Wo rk) Social History Tobacco Use Types Packs/Day Years Used Date Smoking Tobacco: Never Alcohol Use Standard Drinks/Week Comments No 0 (1 standard drink = 0.6 oz pure alcoho l) Sex Assigned at Date Recorded Not on file documented as of this encounter Progress Notes Karina Lo - 02/11/2021 11:59 PM CST This is a recent snapshot of the patient's [facility] medical record. For current drug dose and complete information and questions, call [phone] or In [facility] cent[facility] ([id number]) CSN Number: [id number] documented in this encounter Plan of Treatment Not on filedocumented as of this encounter Visit Diagnoses Not on filedocumented in this encounter Care Teams Mail Order Biller Relationship Specialty Start Date End Date No Ref-Primary, Physician PCP - General 03/09/20 documented as of this encounter
--- OUTSIDE RECORDS SUMMARY | 2021-11-24 01:02 | XMS_ITS | Encounter Summary ---
:1975 Author Organization [place] Address [address] [facility] [place] [address] Care Team Providers Name Role Phone No Ref-Primary, Physician Primary Care Provider Reason for Visit Reason Comments Home Infusion Remicade Infusion Encounter Details Date Type Department Care Team Description 02/17/2021 Documentation Only [facility] Infusion VÍCTOR Natarajan (Rem[facility]ade Infusion) [address] [place] [address] Social History Tobacco Use Types Packs/Day Years Used Date Smoking Tobacco: Never Alcohol Use Standard Drinks/Week Comments No 0 (1 standard drink = 0.6 oz pure alcoho l) Sex Assigned at Date Recorded Not on file documented as of this encounter Progress Notes Keyla Ann CRNI - 02/17/2021 11:59 PM CSTSummary: Remicade Infusion Skilled Nurse visit in the patient home to administer Remicade Infusion. No recent elevated temperature, fever, chills, productive cough, coughing for 3 weeks or longer or hemoptysis, abnormal vital signs, night sweats, chest pain. No decrease in your appetite, unexplained weight loss or fatigue. Patient is alternating between moderate diarrhea and moderate constipation, abdominal cramping intermittently, all of these symptoms have been occuring for the last few months. Patient to contact Dr. Bartlett to discuss increased Crohns symptoms Current weight 240 lbs. PIV placed in left hand, one attempt. Pre medicated with Tylenol 650 mg po and Zyrtec 10 mg po.Infusion completed without complication or reaction. MALLORY [email or web address] [phone] S OPERATIONS documented in this encounter Plan of Treatment Not on filedocumented as of this encounter Visit Diagnoses Not on filedocumented in this encounter Care Teams Supervisor Special Effects Relationship Specialty Start Date End Date No Ref-Primary, Physician PCP - General 03/09/20 documented as of this encounter
--- OUTSIDE RECORDS SUMMARY | 2021-11-24 01:02 | XMS_ITS | Encounter Summary ---
:1975 Author Organization [place] Address [address] [facility] [address] Care Team Providers Name Role Phone No Ref-Primary, Physician Primary Care Provider Reason for Visit Reason Comments Home Infusion Remicade Infusion Encounter Details Date Type Department Care Team Description 11/25/2020 Documentation Only [facility] Infusion VÍCTOR Natarajan (Remicade Infusion) [address] [place] [address] Social History Tobacco Use Types Packs/Day Years Used Date Smoking Tobacco: Never Alcohol Use Standard Drinks/Week Comments No 0 (1 standard drink = 0.6 oz pure alcoho l) Sex Assigned at Date Recorded Not on file documented as of this encounter Progress Notes Keyla Ann CRNI - 11/25/2020 11:59 PM CDTSummary: Remicade Infusion Skilled Nurse [...] mg po.Infusion completed without complication or reaction. Ptreports therapy is effective in managing symptoms related to therapy. MALLORY [phone] documented in this encounter Plan of Treatment Not on filedocumented as of this encounter Visit Diagnoses Not on filedocumented in this encounter Care Teams Air Export Operations Agent Relationship Specialty Start Date End Date No Ref-Primary, Physician PCP - General 03/09/20 documented as of this encounter
--- OUTSIDE RECORDS SUMMARY | 2021-11-24 01:02 | XMS_ITS | Encounter Summary ---
:1975 Author Organization [place] Address [address] [facility] [place] [address] Care Team Providers Name Role Phone No Ref-Primary, Physician Primary Care Provider [phone] Reason for Visit Reason Comments Home Infusion Remicade infusion Encounter Details Date Type Department Care Team Description 03/28/2020 Documentation Only [facility] Infusion VÍCTOR Natarajan (Remicade infusion) [address] [place] [phone] Social History Tobacco Use Types Packs/Day Years Used Date Smoking Tobacco: Never Alcohol Use Standard Drinks/Week Comments No 0 (1 standard drink = 0.6 oz pure alcoho l) Sex Assigned at Date Recorded Not on file COVID-19 Exposure Response Date Recorded In the last month, have you been in contact with No / Unsure 03/09/2020 3:39 AM CIRCLE SHEAR OPERATOR someone who was confirmed or suspected to have Coronavirus / COVID-19? documented as of this encounter Progress Notes Keyla Ann CRNI - 03/28/2020 11:59 PM CSTSummary: Remicade infusion Skilled Nurse visit in the patient home to administer Remicade 500 mg IV. No recent elevated temperature, fever, chills, productive cough, coughing for 3 weeks or longer or hemoptysis, abnormal vital signs, night sweats, chest pain. No decrease in appetite or unexplained weight loss. Patient is recovering from shingles. Current weight 220 lbs. PIV placed in right hand, two attempts. Pre medicated with Tylenol 650 mg po and Zyrtec 10 mg po. Infusion completed without complication or reaction. Pt reports therapy is effective in managing symptoms related to therapy. MALLORY [phone] LE SHEAR OPERATOR documented in this encounter Plan of Treatment Not on filedocumented as of this encounter Visit Diagnoses Not on filedocumented in this encounter Care Teams Diamond Sorter Relationship Specialty Start Date End Date No Ref-Primary, Physician PCP - General 03/09/20 documented as of this encounter
--- OUTSIDE RECORDS SUMMARY | 2021-11-24 01:02 | XMS_ITS | Encounter Summary ---
:1975 Author Organization [place] Address [address] [facility] [place] [address] Care Team Providers Name Role Phone No Ref-Primary, Physician Primary Care Provider Encounter Details Date Type Department Care Team Description 03/16/2020 Home Infusion [facility] Romina Mer[facility], [facility] [address] [place], [place] [phone] [place] [address] [place] [address] (Wo rk) Social History Tobacco Use Types Packs/Day Years Used Date Smoking Tobacco: Never Alcohol Use Standard Drinks/Week Comments No 0 (1 standard drink = 0.6 oz pure alcoho l) Sex Assigned at Date Recorded Not on file COVID-19 Exposure Response Date Recorded In the last month, have you been in contact with No / Unsure 03/09/2020 3:39 AM PROMOTIONS DIRECTOR someone who was confirmed or suspected to have Coronavirus / COVID-19? documented as of this encounter Progress Notes Angelo Delaney - 03/16/2020 11:59 PM CST This is a recent snapshot of the patient's [facility] medical record. For current drug dose and complete information and questions, call [phone] or In [facility] ([id number]) CSN Number: [id number] OTIONS DIRECTOR documented in this encounter Plan of Treatment Not on filedocumented as of this encounter Visit Diagnoses Not on filedocumented in this encounter Care Teams Net Sql Developer Relationship Specialty Start Date End Date No Ref-Primary, Physician PCP - General 03/09/20 documented as of this encounter
--- OUTSIDE RECORDS SUMMARY | 2021-11-24 01:02 | XMS_ITS | Encounter Summary ---
:1975 Author Organization [place] Address [facility] [place] [address] Care Team Providers Name Role Phone No Ref-Primary, Physician Primary Care Provider Encounter Details Date Type Department Care Team Description 07/08/2020 Home Infusion [facility] Romina Meraz, [facility] [address] [place], [place] [phone] [place] [address] [place] [address] (Wo rk) Social History Tobacco Use Types Packs/Day Years Used Date Smoking Tobacco: Never Alcohol Use Standard Drinks/Week Comments No 0 (1 standard drink = 0.6 oz pure alcoho l) Sex Assigned at Date Recorded Not on file documented as of this encounter Progress Notes Zbigniew Dotson - 07/08/2020 11:59 PM CDT This is a recent snapshot of the patient's [facility] medical record. For current drug dose and complete information and questions, call [phone] or In amanda Nicholson homeinfusion ([id number]) CSN Number: [id number] documented in this encounter Plan of Treatment Not on filedocumented as of this encounter Visit Diagnoses Not on filedocumented in this encounter Care Teams Tray Setter Relationship Specialty Start Date End Date No Ref-Primary, Physician PCP - General 03/09/20 documented as of this encounter
--- OUTSIDE RECORDS SUMMARY | 2021-11-24 01:02 | XMS_ITS | Encounter Summary ---
:1975 Author Organization [place] Address [address] [place] [address] Care Team Providers Name Role Phone No Ref-Primary, Physician Primary Care Provider Encounter Details Date Type Department Care Team Description 05/08/2020 Home Infusion [facility] Romina Meraz, [facility] [address] [place] [phone] [place] [address] [place] [address] (Wo rk) Social History Tobacco Use Types Packs/Day Years Used Date Smoking Tobacco: Never Alcohol Use Standard Drinks/Week Comments No 0 (1 standard drink = 0.6 oz pure alcoho l) Sex Assigned at Date Recorded Not on file documented as of this encounter Progress Notes Ivette Babb - 05/08/2020 11:59 PM CDT This is a recent snapshot of the patient's [facility] medical record. For current drug dose and complete information and questions, call [phone] or In amanda Nicholson [facility] ([id number]) CSN Number: [id number] documented in this encounter Plan of Treatment Not on filedocumented as of this encounter Visit Diagnoses Not on filedocumented in this encounter Care Teams Dedicated Owner Operator Relationship Specialty Start Date End Date No Ref-Primary, Physician PCP - General 03/09/20 documented as of this encounter
--- OUTSIDE RECORDS SUMMARY | 2021-11-24 01:02 | XMS_ITS | Encounter Summary ---
:1975 Author Organization [place] Address [address] [facility] [place] [address] Care Team Providers Name Role Phone No Ref-Primary, Physician Primary Care Provider Encounter Details Date Type Department Care Team Description 03/14/2020 Home Infusion [facility] Romina Meraz, [facility] [address] [place], [place] [phone] [place] [address] [place] [address] (Wo rk) Social History Tobacco Use Types Packs/Day Years Used Date Smoking Tobacco: Never Alcohol Use Standard Drinks/Week Comments No 0 (1 standard drink = 0.6 oz pure alcoho l) Sex Assigned at Date Recorded Not on file COVID-19 Exposure Response Date Recorded In the last month, have you been in contact with No / Unsure 03/09/2020 3:39 AM BOLT LABELER someone who was confirmed or suspected to have Coronavirus / COVID-19? documented as of this encounter Progress Notes Angelo Delaney - 03/14/2020 11:59 PM CST This is a recent snapshot of the patient's [facility] medical record. For current drug dose and complete information and questions, call [phone] or In [facility] ([id number]) CSN Number: [id number] LABELER documented in this encounter Plan of Treatment Not on filedocumented as of this encounter Visit Diagnoses Not on filedocumented in this encounter Care Teams Hand Suture Winder Relationship Specialty Start Date End Date No Ref-Primary, Physician PCP - General 03/09/20 documented as of this encounter
--- OUTSIDE RECORDS SUMMARY | 2021-11-24 01:02 | XMS_ITS | Encounter Summary ---
:1975 Author Organization [place] Address [address] [facility] [place] [address] Care Team Providers Name Role Phone No Ref-Primary, Physician Primary Care Provider Encounter Details Date Type Department Care Team Description 06/16/2020 Home Infusion [facility] Romina Meraz, [facility] [address] [place], [place] [phone] [place] [address] [place] [address] (Wo rk) Social History Tobacco Use Types Packs/Day Years Used Date Smoking Tobacco: Never Alcohol Use Standard Drinks/Week Comments No 0 (1 standard drink = 0.6 oz pure alcoho l) Sex Assigned at Date Recorded Not on file documented as of this encounter Progress Notes Ivette Babb - 06/16/2020 11:59 PM CDT This is a recent snapshot of the patient's [facility] medical record. For current drug dose and complete information and questions, call [phone] or In [facility] Nicholson [facility] ([id number]) CSN Number: [id number] documented in this encounter Plan of Treatment Not on filedocumented as of this encounter Visit Diagnoses Not on filedocumented in this encounter Care Teams Wastewater Analyst Relationship Specialty Start Date End Date No Ref-Primary, Physician PCP - General 03/09/20 documented as of this encounter
[2021-11-24 01:03] LABS: Slide Review Reflex No
--- OUTSIDE RECORDS SUMMARY | 2021-11-24 01:03 | XMS_ITS | Encounter Summary ---
:1975 Author Organization [place] Address [facility] [place] [address] Care Team Providers Name Role Phone Blanche Delacruz PA-C Primary Care Provider [phone] Encounter Details Date Type Department Care Team Description 01/29/2020 [facility] [address] [place], [place] [phone] [place] [address] [place] [address] (Wo rk) Social History Tobacco Use Types Packs/Day Years Used Date Smoking Tobacco: Never Alcohol Use Standard Drinks/Week Comments No 0 (1 standard drink = 0.6 oz pure alcoho l) Sex Assigned at Date Recorded Not on file documented as of this encounter Progress Notes Angelo Delaney - 01/29/2020 11:59 PM CST This is a recent snapshot of the patient's [facility] medical record. For current drug dose and complete information and questions, call [phone] or In [email or web address] homeinfusion ([id number]) CSN Number: [id number] IDENT OF [place] documented in this encounter Plan of Treatment Not on filedocumented as of this encounter Visit Diagnoses Not on filedocumented in this encounter Care Teams Mobile Ui Designer Relationship Specialty Start Date End Date Blanche Delacruz PA-C PCP - General 08/19/03 03/08/20 [facility] [address] [facility] [place] [address] documented as of this encounter
--- OUTSIDE RECORDS SUMMARY | 2021-11-24 01:03 | XMS_ITS | Encounter Summary ---
:1975 Author Organization [place] Address [facility] [place] [address] Care Team Providers Name Role Phone No Ref-Primary, Physician Primary Care Provider [phone] Encounter Details Date Type Department Care Team Description 03/09/2020 Travel Social History Tobacco Use Types Packs/Day Years Used Date Smoking Tobacco: Never Alcohol Use Standard Drinks/Week Comments No 0 (1 standard drink = 0.6 oz pure alcoho l) Sex Assigned at Date Recorded Not on file COVID-19 Exposure Response Date Recorded In the last month, have you been in contact with No / Unsure 03/09/2020 3:39 AM PHARMACOLOGIST someone who was confirmed or suspected to have Coronavirus / COVID-19? documented as of this encounter Plan of Treatment Not on filedocumented as of this encounter Visit Diagnoses Not on filedocumented in this encounter Care Teams Napper Tender Relationship Specialty Start Date End Date No Ref-Primary, Physician PCP - General 03/09/20 documented as of this encounter
--- OUTSIDE RECORDS SUMMARY | 2021-11-24 01:03 | XMS_ITS | Encounter Summary ---
:1975 Author Organization [place] Address [facility] [place] [address] Care Team Providers Name Role Phone Blanche Delacruz PA-C Primary Care Provider Encounter Details Date Type Department Care Team Description 01/28/2020 [facility]fusion [facility] [address] [place], [place] [phone] [place] [address] [place] [address] (Wo rk) Social History Tobacco Use Types Packs/Day Years Used Date Smoking Tobacco: Never Alcohol Use Standard Drinks/Week Comments No 0 (1 standard drink = 0.6 oz pure alcoho l) Sex Assigned at Date Recorded Not on file documented as of this encounter Progress Notes Angelo Delaney - 01/28/2020 11:59 PM CST This is a recent snapshot of the patient's [facility] medical record. For current drug dose and complete information and questions, call [phone] or In [employer] homeinfusion ([id number]) CSN Number: [id number] BLASTER documented in this encounter Plan of Treatment Not on filedocumented as of this encounter Visit Diagnoses Not on filedocumented in this encounter Care Teams Hand Dry Cleaner Relationship Specialty Start Date End Date Blanche Delacruz PA-C PCP - General 08/19/03 03/08/20 [facility] [address] [facility] [place] [address] documented as of this encounter
--- OUTSIDE RECORDS SUMMARY | 2021-11-24 01:03 | XMS_ITS | Encounter Summary ---
:1975 Author Organization [place] Address [facility] [place] [address] Care Team Providers Name Role Phone Blanche Delacruz PA-C Primary Care Provider [phone] Encounter Details Date Type Department Care Team Description 11/06/2019 [facility] [place] [facility] [address] [place], [place] [phone] [place] [address] [place] [address] (Wo rk) Social History Tobacco Use Types Packs/Day Years Used Date Smoking Tobacco: Never Alcohol Use Standard Drinks/Week Comments No 0 (1 standard drink = 0.6 oz pure alcoho l) Sex Assigned at Date Recorded Not on file documented as of this encounter Progress Notes Angelo Delaney - 11/06/2019 11:59 PM CDT This is a recent snapshot of the patient's [facility] medical record. For current drug dose and complete information and questions, call [phone] or In amanda Nicholson homeinfusion ([id number]) CSN Number: [id number] documented in this encounter Plan of Treatment Not on filedocumented as of this encounter Visit Diagnoses Not on filedocumented in this encounter Care Teams Clock Smith Relationship Specialty Start Date End Date Blanche Delacruz PA-C PCP - General 08/19/03 03/08/20 [facility] [address] [facility] [place] [address] documented as of this encounter
--- OUTSIDE RECORDS SUMMARY | 2021-11-24 01:03 | XMS_ITS | Encounter Summary ---
:1975 Author Organization [place] Address [facility] [place] [address] Care Team Providers Name Role Phone Blanche Delacruz PA-C Primary Care Provider [phone] Encounter Details Date Type Department Care Team Description 09/26/2019 [facility] [facility] [address] [place], [place] [phone] [place] [address] [place] [address] (Wo rk) Social History Tobacco Use Types Packs/Day Years Used Date Smoking Tobacco: Never Alcohol Use Standard Drinks/Week Comments No 0 (1 standard drink = 0.6 oz pure alcoho l) Sex Assigned at Date Recorded Not on file documented as of this encounter Progress Notes Bree Desir - 09/26/2019 11:59 PM CDT This is a recent snapshot of the patient's [facility] medical record. For current drug dose and complete information and questions, call [phone] or In amanda Nicholson homeinfusion ([id number]) CSN Number: [id number] documented in this encounter Plan of Treatment Not on filedocumented as of this encounter Visit Diagnoses Not on filedocumented in this encounter Care Teams Pillowcase Maker Relationship Specialty Start Date End Date Blanche Delacruz PA-C PCP - General 08/19/03 03/08/20 [facility] [address] [place] [address] documented as of this encounter
--- OUTSIDE RECORDS SUMMARY | 2021-11-24 01:03 | XMS_ITS | Encounter Summary ---
:1975 Author Organization [place] Address [facility] [place] [address] Care Team Providers Name Role Phone Blanche Delacruz PA-C Primary Care Provider [phone] Encounter Details Date Type Department Care Team Description 12/17/2019 [facility] [place] [facility] [address] [place], [place] [phone] [place] [address] [place] [address] (Wo rk) Social History Tobacco Use Types Packs/Day Years Used Date Smoking Tobacco: Never Alcohol Use Standard Drinks/Week Comments No 0 (1 standard drink = 0.6 oz pure alcoho l) Sex Assigned at Date Recorded Not on file documented as of this encounter Progress Notes Nisreen Mak - 12/17/2019 11:59 PM CST This is a recent snapshot of the patient's [place] [facility] medical record. For current drug dose and complete information and questions, call [phone] or In amanda Nicholson [facility] ([id number]) CSN Number: [id number] OR DESIGNER documented in this encounter Plan of Treatment Not on filedocumented as of this encounter Visit Diagnoses Not on filedocumented in this encounter Care Teams Certified Legal Secretary Specialist Relationship Specialty Start Date End Date Blanche Delacruz PA-C PCP - General 08/19/03 03/08/20 [facility] [address] [facility] [place] [address] documented as of this encounter
--- OUTSIDE RECORDS SUMMARY | 2021-11-24 01:03 | XMS_ITS | Encounter Summary ---
:1975 Author Organization [place] Address [facility], [address] [facility] [place] [address] Care Team Providers Name Role Phone Blanche Delacruz PA-C Primary Care Provider [phone] Encounter Details Date Type Department Care Team Description 11/05/2019 [facility] [place] [facility] [address] [place], [place] [phone] [place] [address] [place] [address] (Wo rk) Social History Tobacco Use Types Packs/Day Years Used Date Smoking Tobacco: Never Alcohol Use Standard Drinks/Week Comments No 0 (1 standard drink = 0.6 oz pure alcoho l) Sex Assigned at Date Recorded Not on file documented as of this encounter Progress Notes Angelo Delaney - 11/05/2019 11:59 PM CDT This is a recent snapshot of the patient's [place] [facility] medical record. For current drug dose and complete information and questions, call [phone] or In [facility] Nicholson [facility] ([id number]) CSN Number: [id number] documented in this encounter Plan of Treatment Not on filedocumented as of this encounter Visit Diagnoses Not on filedocumented in this encounter Care Teams Encoding Clerk Relationship Specialty Start Date End Date Blanche Delacruz PA-C PCP - General 08/19/03 03/08/20 [facility] [address] [facility] [place] [address] documented as of this encounter
--- OUTSIDE RECORDS SUMMARY | 2021-11-24 01:03 | XMS_ITS | Encounter Summary ---
:1975 Author Organization [place] Address [facility] [place] [address] Care Team Providers Name Role Phone Blanche Delacruz PA-C Primary Care Provider [phone] Encounter Details Date Type Department Care Team Description 09/24/2019 [facility] Infusion [place] [facility] [address] [place], [place] [phone] [place] [address] [place] [address] (Wo rk) Social History Tobacco Use Types Packs/Day Years Used Date Smoking Tobacco: Never Alcohol Use Standard Drinks/Week Comments No 0 (1 standard drink = 0.6 oz pure alcoho l) Sex Assigned at Date Recorded Not on file documented as of this encounter Progress Notes Bree Desir - 09/24/2019 11:59 PM CDT This is a recent snapshot of the patient's [place] [facility] medical record. For current drug dose and complete information and questions, call [phone] or In [facility] Nich[facility] ([id number]) CSN Number: [id number] documented in this encounter Plan of Treatment Not on filedocumented as of this encounter Visit Diagnoses Not on filedocumented in this encounter Care Teams Metal Spray Operator Relationship Specialty Start Date End Date Blanche Delacruz PA-C PCP - General 08/19/03 03/08/20 [facility] [address] [place] [address] documented as of this encounter
--- OUTSIDE RECORDS SUMMARY | 2021-11-24 01:03 | XMS_ITS | Encounter Summary ---
:1975 Author Organization [place] Address [facility]0 [facility] [place] [address] Care Team Providers Name Role Phone Blanche Delacruz PA-C Primary Care Provider [phone] Encounter Details Date Type Department Care Team Description 08/13/2019 [facility] [place] [facility] [address] [place], [place] [phone] [place] [address] [place] [address] (Wo rk) Social History Tobacco Use Types Packs/Day Years Used Date Smoking Tobacco: Never Alcohol Use Standard Drinks/Week Comments No 0 (1 standard drink = 0.6 oz pure alcoho l) Sex Assigned at Date Recorded Not on file documented as of this encounter Progress Notes Angelo Delaney - 08/13/2019 11:59 PM CDT This is a recent snapshot of the patient's [place] [facility] medical record. For current drug dose and complete information and questions, call [phone] or In am[facility] Nicholson [facility] ([id number]) CSN Number: [id number] documented in this encounter Plan of Treatment Not on filedocumented as of this encounter Visit Diagnoses Not on filedocumented in this encounter Care Teams Return Agent Relationship Specialty Start Date End Date Blanche Delacruz PA-C PCP - General 08/19/03 03/08/20 [facility] [address] [facility] [place] [address] documented as of this encounter
--- OUTSIDE RECORDS SUMMARY | 2021-11-24 01:03 | XMS_ITS | Encounter Summary ---
:1975 Author Organization [place] Address [address] [facility] [place] [place] [address] Care Team Providers Name Role Phone Blanche Delacruz PA-C Primary Care Provider [phone] Encounter Details Date Type Department Care Team Description 07/05/2019 [facility] [place] [facility] [address] [place], [place] [phone] [place] [address] [place] [address] (Wo rk) Social History Tobacco Use Types Packs/Day Years Used Date Smoking Tobacco: Never Alcohol Use Standard Drinks/Week Comments No 0 (1 standard drink = 0.6 oz pure alcoho l) Sex Assigned at Date Recorded Not on file COVID-19 Exposure Response Date Recorded In the last month, have you been in contact Unable to assess 07/04/2019 12:17 PM CDT with someone who was confirmed or suspected to have Coronavirus / COVID-19? documented as of this encounter Progress Notes Bree Desir - 07/05/2019 11:59 PM CDT This is a recent snapshot of the patient's [facility] [place] [facility] medical record. For current drug dose and complete information and questions, call [phone] or In [facility] ([id number]) CSN Number: [id number] documented in this encounter Plan of Treatment Not on filedocumented as of this encounter Visit Diagnoses Not on filedocumented in this encounter Care Teams Site Technician Relationship Specialty Start Date End Date Blanche Delacruz PA-C PCP - General 08/19/03 03/08/20 [facility] [address] [place] [address] documented as of this encounter
--- OUTSIDE RECORDS SUMMARY | 2021-11-24 01:03 | XMS_ITS | Encounter Summary ---
:1975 Author Organization [place] Address [address] [facility] [place] [address] Care Team Providers Name Role Phone Blanche Delacruz PA-C Primary Care Provider Reason for Visit Reason Comments Home Infusion Remicade infusion Encounter Details Date Type Department Care Team Description 11/07/2019 Documentation Only [facility] Infusion VÍCTOR Natarajan (Remicade infusion) [address] [place] [address] Social History Tobacco Use Types Packs/Day Years Used Date Smoking Tobacco: Never Alcohol Use Standard Drinks/Week Comments No 0 (1 standard drink = 0.6 oz pure alcoho l) Sex Assigned at Date Recorded Not on file documented as of this encounter Progress Notes Keyla Ann [facility] - 11/07/2019 11:59 PM CDTSummary: Remicade infusion Skilled Nurse visit in the patient home to administer Remicade 500 mg IV. No recent elevated temperature, fever, chills, productive cough, coughing for 3 weeks or longer or hemoptysis, abnormal vital signs, night sweats, chest pain. No decrease in appetite, unexplained weight loss or fatigue. No othernew onset medical symptoms. Current weight 215 lbs. PIV placed in left hand, one attempt. Pre medicated with Tylenol 650 mg po and Zyrtec 10 mg po. Infusion completed without complication or reaction. Pt reports therapy is effective in managing symptoms related to therapy. MALLORY [phone] documented in this encounter Plan of Treatment Not on filedocumented as of this encounter Visit Diagnoses Not on filedocumented in this encounter Care Teams 911 Telecommunicator Relationship Specialty Start Date End Date Blanche Delacruz PA-C PCP - General 08/19/03 03/08/20 [facility] [address] [place] [address] documented as of this encounter
--- OUTSIDE RECORDS SUMMARY | 2021-11-24 01:03 | XMS_ITS | Encounter Summary ---
:1975 Author Organization [place] Address [facility] [place] [address] Care Team Providers Name Role Phone No Ref-Primary, Physician Primary Care Provider Encounter Details Date Type Department Care Team Description 03/10/2020 Home Infusion [place] [facility] Romina Meraz, [facility] [address] [place], [place] [phone] [address] [facility] [phone] [place] [address] (Wo rk) Social History Tobacco Use Types Packs/Day Years Used Date Smoking Tobacco: Never Alcohol Use Standard Drinks/Week Comments No 0 (1 standard drink = 0.6 oz pure alcoho l) Sex Assigned at Date Recorded Not on file COVID-19 Exposure Response Date Recorded In the last month, have you been in contact with No / Unsure 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 documented as of this encounter Progress Notes Bree Desir - 03/10/2020 11:59 PM CST This is a recent snapshot of the patient's [place] [facility] medical record. 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
--- OUTSIDE RECORDS SUMMARY | 2021-11-24 01:03 | XMS_ITS | Encounter Summary ---
:1975 Author Organization [place] Address [facility], [facility] [place] [address] Care Team Providers Name Role Phone Blanche Delacruz PA-C Primary Care Provider [phone] Encounter Details Date Type Department Care Team Description 07/04/2019 Travel Social History Tobacco Use Types Packs/Day [...] on filedocumented in this encounter Care Teams Film Splicer Relationship Specialty Start Date End Date Blanche Delacruz PA-C PCP - General 08/19/03 03/08/20 [facility] [address] [place] [address] documented as of this encounter
--- OUTSIDE RECORDS SUMMARY | 2021-11-24 01:03 | XMS_ITS | Encounter Summary ---
:1975 Author Organization [place] Address On license of [facility]0 [place] [address] Care Team Providers Name Role Phone Blanche Delacruz PA-C Primary Care Provider [phone] Encounter Details Date Type Department Care Team Description 09/25/2019 [facility] [place] [facility] [address] [place], [place] [phone] [place] [address] [place] [address] (Wo rk) Social History Tobacco Use Types Packs/Day Years Used Date Smoking Tobacco: Never Alcohol Use Standard Drinks/Week Comments No 0 (1 standard drink = 0.6 oz pure alcoho l) Sex Assigned at Date Recorded Not on file documented as of this encounter Progress Notes Bree Desir - 09/25/2019 11:59 PM CDT This is a recent snapshot of the patient's [facility] [facility] medical record. For current drug dose and complete information and questions, call [phone] or In amanda Nicholson [facility] ([id number]) CSN Number: [id number] documented in this encounter Plan of Treatment Not on filedocumented as of this encounter Visit Diagnoses Not on filedocumented in this encounter Care Teams Risk Officer Relationship Specialty Start Date End Date Blanche Delacruz PA-C PCP - General 08/19/03 03/08/20 [facility] [address] [place] [address] documented as of this encounter
--- OUTSIDE RECORDS SUMMARY | 2021-11-24 01:03 | XMS_ITS | Encounter Summary ---
:1975 Author Organization [place] Address [address] [facility] [place] [address] Care Team Providers Name Role Phone Blanche Delacruz PA-C Primary Care Provider [phone] Reason for Visit Reason Comments Home Infusion Remicade infusion Encounter Details Date Type Department Care Team Description 08/15/2019 Documentation Only [facility] Keyal Ann [facility] Infusion L, [facility] (Remicade infusion) [address] [place] [address] Social History Tobacco Use Types Packs/Day Years Used Date Smoking Tobacco: Never Alcohol Use Standard Drinks/Week Comments No 0 (1 standard drink = 0.6 oz pure alcoho l) Sex Assigned at Date Recorded Not on file documented as of this encounter Progress Notes Keyla Ann RN - 08/15/2019 11:59 PM CDTSummary: Remicade infusion Skilled Nurse [...] left hand, one attempt. Pre medicated with Bputvd28 mg po, and Tylenol 650 mg po. Infusion completed without complication or reaction. Pt reports therapy is effective in managing symptoms related to therapy. MALLORY [phone] documented in this encounter Plan of Treatment Not on filedocumented as of this encounter Visit Diagnoses Not on filedocumented in this encounter Care Teams Accounting Policy Consultant Relationship Specialty Start Date End Date Blanche Delacruz PA-C PCP - General 08/19/03 03/08/20 [facility] [address] [facility] [address] documented as of this encounter
--- OUTSIDE RECORDS SUMMARY | 2021-11-24 01:03 | XMS_ITS | Encounter Summary ---
:1975 Author Organization [place] Address [address] [place] [address] Care Team Providers Name Role Phone No Ref-Primary, Physician Primary Care Provider Reason for Visit Reason Comments Dizziness Encounter Details Date Type Department Care Team Description 03/09/2020 Emergency [facility] Vo, Stevenson Reed MD Hypokalemia; [facility] Emergency Dep t EMERGENCY PHYSICIANS Dizziness; [address] [place] Non-intractable vomiting with nausea, un specified vomiting type [place], [place] [address] [id number] [place] [address] (Wo rk) Social History Tobacco Use Types Packs/Day Years Used Date Smoking Tobacco: Never Alcohol Use Standard Drinks/Week Comments No 0 (1 standard drink = 0.6 oz pure alcoho l) Sex Assigned at Date Recorded Not on file COVID-19 Exposure Response Date Recorded In the last month, have you been in contact with No / Unsure 03/09/2020 3:39 AM LOCK AND DAM EQUIPMENT REPAIRER someone who was confirmed or suspected to have Coronavirus / COVID-19? documented as of this encounter Last Filed Vital Signs Vital Sign Reading Time Taken Comments Blood Pressure 139/89 03/09/2020 6:30 AM LOCK AND DAM EQUIPMENT REPAIRER Pulse 98 03/09/2020 6:30 AM LOCK AND DAM EQUIPMENT REPAIRER Temperature 36 ??C (96.8 ??F) 03/09/2020 3:46 AM LOCK AND DAM EQUIPMENT REPAIRER Respiratory Rate 17 03/09/2020 6:30 AM LOCK AND DAM EQUIPMENT REPAIRER Oxygen Saturation 94% 03/09/2020 6:30 AM LOCK AND DAM EQUIPMENT REPAIRER Inhaled Oxygen Concentration - - Weight - - Height - - Body Mass Index - - documented in this encounter Discharge Instructions Discharge InstructionsStevenson Jimenez MD - 03/09/2020 6:02 AM CST Please follow up with a primary care provider. You need your potassium level and kidney function rechecked in 1-2 weeks. You also may need your hydrochlorothiazide switched to a different antihypertensive medication depending on whether your potassium level stays low or comes back to normal. Please return to the ED for any worsening symptoms. AND DAM EQUIPMENT REPAIRER documented in this encounter Medications at Time of Discharge Medication Sig Dispensed Refills Start Date End Date COLAZAL 750 MG OR CAPS 3 CAPSULES 3 TIMES 0 08/18 DAILY doxycycline hyclate Take 50 mg by mouth 2 0 (VIBRAMYCIN) 50 MG times daily capsule ENTOCORT EC 3 MG OR CP24 3 CAPSULES DAILY 0 08/18 inFLIXimab (REMICADE IV) 0 lisinopril (ZESTRIL) 5 MG Take 5 mg by mouth 0 tablet daily ondansetron (ZOFRAN ODT) Take 1 tablet (4 mg) 10 tablet 0 0 03/09/2020 4 MG ODT tab by mouth every 8 hours as needed for nausea potassium chloride ER Take 1 tablet (20 mEq) 14 tablet 0 (KLOR-CON M) 20 MEQ CR by mouth daily tablet sertraline (ZOLOFT) 100 Take 50 mg by mouth 0 MG tablet daily ZITHROMAX Z-KOBE 250 MG OR 2 tablets day 1, 1 6 0 TABS tablet days 2-5 documented as of this encounter ED Notes Stevenson Galvan RN - 03/09/2020 3:45 AM CST Feeling ill x 1 week, started taking Zoloft 1 week ago. Stopped taking Zoloft yesterday. 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 Took 1 zofran for nausea at home. AND DAM EQUIPMENT REPAIRER Stevenson Jimenez MD - 03/09/2020 3:39 AM CST History Chief Complaint Dizziness HPI Ariella Camargo is a 44 year old female who presents for evaluation of dizziness which she describes as feeling lightheaded. The patient reports that she has been feeling off for about a week now, noting persistent fatigue and intermittent nausea. A few days after feeling ill, she was started onZoloft. She was evaluated for her symptoms at one point this week and started on doxycycline for a potential sinus infection. Two hours ago, the patient woke up feeling extremely nauseous. When getting out of bed to take some PO Zoloft, she felt lightheaded and nearly passed out, prompting her visit to the ED. Here, the patient is still experiencing her symptoms. She denies any room spinning dizziness. She notes that she stopped taking her Zoloft yesterday. She also noted that her PO intake has been somewhat decreased lately secondary to just feeling unwell. Review of Systems Constitutional: Positive for fatigue. Gastrointestinal: Positive for nausea. Neurological: Positive for dizziness and light-headedness. All other systems reviewed and are negative. Allergies Ketamine Amoxicillin Medications Remicade Lisinopril Zoloft 50 mg Doxycyline Past Medical History Enteritis Crohn's disease Family History CO Social History Presents to the ED alone. Physical Exam Patient Vitals for the past 24 hrs: BP Temp Temp src Pulse Resp SpO2 03/09/20 0630 139/89 -- -- 98 17 94 % 03/09/20 0615 133/86 -- -- 82 19 95 % 03/09/20 0600 121/80 -- -- 85 15 99 % 03/09/20 0545 (!) 153/98 -- -- 82 21 98 % 03/09/20 0515 132/85 -- -- 76 16 98 % 03/09/20 0500 (!) 148/96 -- -- 87 14 100 % 03/09/20 0445 (!) 144/98 -- -- 78 17 98 % 03/09/20 0346 (!) 176/94 96.8 ??F (36 ??C) Temporal 94 16 99 % Physical Exam I have reviewed the triage vital signs Eyes: No discharge, symmetrical lids ENT: Moist mucous membranes, no ear discharge Neck: Full range of motion Respiratory: CTAB, no wheezes Cardiovascular: Regular rate and rhythm, no lower extremity edema Chest: Equal rise Gastrointestinal: Soft. Nondistended. NTTP. No rebound or guarding Musculoskeletal: No gross deformities. Skin: Warm and well perfused. No visible rash. Neurologic: Moves all extremities, speech fluent without dysarthria Psychiatric: Appropriate affect, alert and interactive Emergency Department Course EKG Time: 356 Rate 99 bpm. OR interval 168. QRS duration 78. QT/QTc 358/459. P-R-T axes 38 -36 35. Normal sinus rhythm. Left axis deviation. Minimal voltage criteria for LVH, may be normal variant. Poor R wave progression. Abnormal ECG. Read by Stevenson Jimenez MD Laboratory: CBC: WBC: 11.3 (H), HGB: 15.3, PLT: 311 CMP: Glucose 106 (H), potassium 2.9 (L), o/w WNL (Creatinine: 0.71) 0402 Troponin I: <0.015 Emergency Department Course: Reviewed: I reviewed nursing notes, vitals and past medical history Assessments: 0423 I physically examined the patient as documented above. 0535 I rechecked the patient. Interventions: Medications 0.9% sodium chloride BOLUS (0 mLs Intravenous Stopped 03/09/20 0548) ondansetron (ZOFRAN) injection 4 mg (4 mg Intravenous Given 03/09/20 0438) potassium chloride (KAYCIEL) solution 60 mEq (60 mEq Oral Given 03/09/20 0548) potassium chloride 10 mEq in 100 mL sterile water intermittent infusion (premix) (0 mEq Intravenous Stopped 03/09/20 0641) Disposition: The patient was discharged to home. Impression & Plan Medical Decision MakinF presenting with dizziness and lightheadedness and nausea and near syncope. DDx includes but is not limited to hypokalemia, vasovagal event, orthostasis, cardiogenic syncope, arrhythmia, medication side effect Did consider medication side effect as she was recently started on zoloft and on doxycycline, however the time course of symptoms does not fit with this cause and would not necessarily expect these symptoms with onset of low dose zoloft. No listed medication interactions between zoloft and doxycyclineon micromedex. Her K is 2.9 -- she is on hydrochlorothiazide, she reports decreased PO intake -- possibly can explain pt's symptoms. Thankfully, no significant prolonged QT, no U wave. Further, no short OR or WPW, no findings of HOCMor ARVD, no significant arrhythmia. Low suspicion for cardiogenic or arrhythmogenic etiology of syncope. She does notably have poor R wave progression of unclear significance. No acute ischemia noted. Troponin negative. Potassium was repleted. Will provide short course of oral KCl at home. Advised close follow-up with PCP for recheck of potassium and renal function and discussion of changing her hydrochlorothiazide toa different agent. Strict return precautions given. Diagnosis: ICD-10-CM 1. Hypokalemia E87.6 2. Dizziness R42 3. Non-intractable vomiting with nausea, unspecified vomiting type R11.2 Discharge Medications: Discharge Medication List as of 03/09/2020 6:42 AM START taking these medications Details ondansetron (ZOFRAN ODT) 4 MG ODT tab Take 1 tablet (4 mg) by mouth every 8 hours as needed for nausea, Disp-10 tablet, R-0, Local Print Scribe Disclosure: Parish Webb, am serving as a scribe at 4:15 AM on 03/09/2020 to document services personally performed by Stevenson Jimenez MD based on my observations and the provider's statements to me. Stevenson Jimenez MD 03/09/20 1139 AND DAM EQUIPMENT REPAIRER documented in this encounter Plan of Treatment Not on filedocumented as of this encounter Procedures Procedure Name Priority Date/Time Associated Comments Diagnosis CBC WITH PLATELETS & STAT 03/09/2020 4:02 AM R esults for this DIFFERENTIAL LOCK AND DAM EQUIPMENT REPAIRER procedure are i n the results section. TROPONIN I STAT 03/09/2020 4:02 AM Results f or this LOCK AND DAM EQUIPMENT REPAIRER procedure are i n the results section. COMPREHENSIVE STAT 03/09/2020 4:02 AM Results for this METABOLIC PANEL LOCK AND DAM EQUIPMENT REPAIRER procedure ar e in the results section. EKG 12-LEAD, TRACING STAT 03/09/2020 3:57 AM R esults for this ONLY LOCK AND DAM EQUIPMENT REPAIRER procedure are i n the results section. documented in this encounter Results Troponin I (now) (03/09/2020 4:02 AM LOCK AND DAM EQUIPMENT REPAIRER) P athologist Signature Troponin I ES <0.015 0.000 - 03/09/2020 [place] 0.045 ug/L 5:16 AM [facility] Comment: The 99th percentile for upper reference range is 0.045 ug/L. ??Troponin values in the range of 0.045 - 0.120 ug/L may b e associated with risks of adverse clinical events. Specimen Anatomical Collection Method Collection Time Receive d Time (Source) Location / / Volume Laterality Blood specimen 03/09/2020 4:02 AM 021 4:42 (specimen) LOCK AND DAM EQUIPMENT REPAIRER AM LOCK AND DAM EQUIPMENT REPAIRER Stevenson Cohen MD LAB - BLOOD ORDERABLES Performing Organization Address City/State/ZIP Code Phon e Number M [facility] [address] [phone] [facility] [address] [phone], [place] [phone] (ABNORMAL) Comprehensive metabolic panel (03/09/2020 4:02 AM LOCK AND DAM EQUIPMENT REPAIRER) athologist Signature Sodium 137 133 - 144 03/09/2020 [place] mmol/L 5:16 AM [facility] Potassium 2.9 (L) 3.4 - 5.3 03/09/2020 [place] mmol/L 5:16 AM [facility] Comment: Specimen slightly hemolyzed, po tassium may be falsely elevated Chloride 104 94 - 109 mmol/L 03/09/2020 5:16 AM [facility] Carbon Dioxide 30 20 - 32 mmol/L 03/09/2020 5:16 AM [facility] Anion Gap 3 3 - 14 mmol/L 03/09/2020 5:16 AM [facility] Glucose 106 (H) 70 - 99 mg/dL 03/09/2020 5:16 AM [facility] Urea Nitrogen 14 7 - 30 mg/dL 03/09/2020 5:16 AM [facility] Creatinine 0.71 0.52 - 1.04 mg/dL 03/09/2020 5:16 AM [facility] GFR Estimate >90 >60 03/09/2020 5:16 AM [facility] mL/min/{1.73_m2} [facility] Comment: Non GFR Calc Starting 01/31/2018, serum creatinine ba sed estimated GFR (eGFR) will be calculated using the Chronic Kidney Dise [facility] Epidemiology Collaboration (CKD-EPI) equation. GFR Estimate If >90 >60 mL/min/{1.73_m2} 03/09/2020 5: 16 AM [facility] Comment: GFR Calc Starting 01/31/2018, serum creatinine ba sed estimated GFR (eGFR) will be calculated using the Chronic Kidney Dise [facility] Epidemiology Collaboration (CKD-EPI) equation. Calcium 9.2 8.5 - 10.1 mg/dL 03/09/2020 5:16 AM [facility] Bilirubin Total 0.4 0.2 - 1.3 mg/dL 03/09/2020 5:16 AM [facility] Albumin 3.7 3.4 - 5.0 g/dL 03/09/2020 5:16 AM [facility] Protein Total 8.0 6.8 - 8.8 g/dL 03/09/2020 5:16 AM [facility] Alkaline Phosphatase 52 40 - 150 U/L 03/09/2020 5:16 AM [facility] ALT 20 0 - 50 U/L 03/09/2020 5:[address] [facility] AST 21 0 - 45 U/L 03/09/2020 5:[address] [facility] Comment: Specimen is hemolyzed which can falsely elevate AST. Analysis of a non-hemolyzed specimen may result in a l ower value. Specimen Anatomical Collection Method Collection Time Receive d Time (Source) Location / / Volume Laterality Blood specimen 03/09/2020 4:02 AM 021 4:42 (specimen) LOCK AND DAM EQUIPMENT REPAIRER AM [facility] Stevenson Cohen MD LAB - BLOOD ORDERABLES Performing Organization Address City/State/ZIP Code Phon e Number M [facility] [address] [phone] [facility] [address] [address], [place] [phone] (ABNORMAL) CBC with platelets differential (03/09/2020 4:[address] [facility]) [facility] gist Method Time Signature WBC 11.3 (H) 4.0 - 03/09/2020 [facility] 11.0 4:50 AM [facility] 10e9/L [facility] RBC Count 4.71 3.8 - 5.2 03/09/2020 [facility] 10e12/L 4:50 AM [facility] Hemoglobin 15.3 11.7 - 03/09/2020 [facility] 15.7 g/dL 4:50 AM [facility] Hematocrit 44.2 35.0 - 03/09/2020 [facility] 47.0 % 4:50 AM [facility] MCV 94 78 - 100 03/09/2020 [facility] fl 4:50 AM [facility] MCH 32.5 26.5 - 03/09/2020 [facility] 33.0 pg 4:50 AM [facility] MCHC 34.6 31.5 - 03/09/2020 [facility] 36.5 g/dL 4:50 AM [facility] RDW 12.1 10.0 - 03/09/2020 [facility] 15.0 % 4:50 AM [facility] Platelet Count 311 150 - 450 03/09/2020 [facility] 10e9/L 4:50 AM [facility] Diff Method Automated 03/09/2020 [facility] Method 4:50 AM [facility] % Neutrophils 46.0 % 03/09/2020 [facility] 4:50 AM [facility] % Lymphocytes 43.0 % 03/09/2020 [facility] 4:50 AM [facility] % Monocytes 8.8 % 03/09/2020 [facility] 4:50 AM [facility] % Eosinophils 1.3 % 03/09/2020 [facility] 4:50 AM [facility] % Basophils 0.5 % 03/09/2020 [facility] 4:50 AM [facility] % Immature 0.4 % 03/09/2020 [facility] Granulocytes 4:50 AM [facility] Nucleated RBCs 0 0 /100 03/09/2020 [facility] 4:50 AM [facility] Absolute 5.2 1.6 - 8.3 03/09/2020 [facility] Neutrophil 10e9/L 4:50 AM [facility] Absolute 4.9 0.8 - 5.3 03/09/2020 [facility] Lymphocytes 10e9/L 4:50 AM [facility] Absolute 1.0 0.0 - 1.3 03/09/2020 [facility] Monocytes 10e9/L 4:50 AM [facility] Absolute 0.2 0.0 - 0.7 03/09/2020 [place] Eosinophils 10e9/L 4:50 AM [facility] Absolute 0.1 0.0 - 0.2 03/09/2020 [place] Basophils 10e9/L 4:50 AM [facility] Abs Immature 0.0 0 - 0.4 03/09/2020 [place] Granulocytes 10e9/L 4:50 AM [facility] Absolute 0.0 03/09/2020 [place] Nucleated RBC 4:50 AM [facility] Specimen Anatomical Collection Method Collection Time Receive d Time (Source) Location / / Volume Laterality Blood specimen 03/09/2020 4:02 AM 021 4:42 (specimen) LOCK AND DAM EQUIPMENT REPAIRER AM LOCK AND DAM EQUIPMENT REPAIRER Stevenson Cohen MD LAB - BLOOD ORDERABLES Performing Organization Address City/State/ZIP Code Phon e Number [facility] [address] [address] [facility] [address] [phone] EKG 12 lead (03/09/2020 3:57 AM LOCK AND DAM EQUIPMENT REPAIRER) [facility] gist Method Time Signature Interpretation ECG Click View RADIOLOGY Image link RESULTS to view waveform and result Specimen (Source) Anatomical Collection Method Collection Time Re ceived Time Location / / Volume Laterality 03/09/2020 3:57 AM LOCK AND DAM EQUIPMENT REPAIRER Stevenson Cohen MD ECG ORDERABLES Performing Organization Address City/[facility]/ZIP [facility] Phon e Number RADIOLOGY RESULTS documented in this encounter Visit Diagnoses Diagnosis Hypokalemia Hypopotassemia Dizziness Dizziness and giddiness Non-intractable vomiting with nausea, un specified vomiting type documented in this encounter Administered Medications Inactive Administered Medications - up to 3 most recent administrations Medication Order MAR Action Action Date Dose Rate Site 0.9% sodium chloride BOLUS New Bag 03/09/2020 4:37 AM LOCK AND DAM EQUIPMENT REPAIRER 1,000 mLs 2000 mL/hr Intravenous, 1,000 mL, ONCE, at 2,000 mL/hr, Administer over 30 Minutes, On 03/09/20 at 0430, For 1 dose ondansetron (ZOFRAN) injection 4 mg Given 03/09/2020 4:38 AM LOCK AND DAM EQUIPMENT REPAIRER 4 mg 4 mg, Intravenous, ONCE, Administer over 2-5 Minutes, On 03/09/20 at 0430, For 1 dose, Irritant. For ordered IV doses 0.1-4 mg, give IV Push undiluted over 2-5 minutes. potassium chloride (KAYCIEL) solution 60 mEq Given 03/09/2020 5:48 AM LOCK AND DAM EQUIPMENT REPAIRER 60 mEq 60 mEq, Oral, ONCE, On 03/09/20 at 0520, For 1 dose potassium chloride 10 mEq in 100 mL New Bag 03/09/2020 5:48 AM LOCK AND DAM EQUIPMENT REPAIRER 10 mEq 100 mL/hr sterile water intermittent infusion (premix) 10 mEq, Intravenous, Administer over 60 Minutes, at 100 mL/hr, EVERY HOUR, First dose (after last modification) on 03/09/20 at 0600, For 1 dose documented in this encounter Active and Recently Administered Medications Times are shown in LOCK AND DAM EQUIPMENT REPAIRER. Scheduled Medication Order 03/07/2020 03/08/2020 03/09/2020 0.9% sodium chloride BOLUS (COMPLETED) 436 (New Bag - Provider: Omid Leslie, RN)547 (Stopped - Provider: Kathia Zamorano, RN) Intravenous, 1,000 mL, ONCE, at 2,000 mL /hr, Administer over 30 Minutes, 03/09/20 at 0430, For 1 dose ondansetron (ZOFRAN) injection 4 mg (COMPLETED) 437 (Given - Provider: Omid Leslie, RN) 4 mg, Intravenous, ONCE, Administer over 2-5 Minutes, 03/09/20 at 0430, For 1 dose, Irritant. For ordered IV doses 0.1-4 mg, give IV Push undiluted over 2-5 minutes. potassium chloride (KAYCIEL) solution 60 mEq (COMPLETED) 547 (Given - Provider: Kathia Zamorano, RN) 60 mEq, Oral, ONCE, 03/09/20 at 0520, For 1 dose potassium chloride 10 mEq in 100 mL ster ile water intermittent infusion (premix) (COMPLETED) 547 (New Bag - Prov ider: Kathia Zamorano, RN)0641 (Stopped - Provider: Omid Leslie RN) 10 mEq, Intravenous, Administer over 60 Minutes, at 100 mL/hr, EVERY HOUR, First dose (after last modification) on 03/09/20 at 0600, For 1 dose documented in this encounter Care Teams Thermo Processor Relationship Specialty Start Date End Date No Ref-Primary, Physician PCP - General 03/09/20 documented as of this encounter
--- OUTSIDE RECORDS SUMMARY | 2021-11-24 01:03 | XMS_ITS | Encounter Summary ---
:1975 Author Organization [place] Address [address] [facility] [place] [address] Care Team Providers Name Role Phone Blanche Delacruz PA-C Primary Care Provider [phone] Encounter Details Date Type Department Care Team Description 07/04/2019 Home Infusion [facility] Infusi on Keyla Ann, [address] [place] [address] Social History Tobacco Use Types [...] / COVID-19? documented as of this encounter Nursing Notes Keyla Ann RN - 07/04/2019 11:59 PM CDTSummary: Pharmacy Skilled Nurse visit in the patient home to administer Remicade 500 mg IV. No recent elevated temperature, fever, chills, productive cough, coughing for 3 weeks or longer or hemoptysis, abnormal vital signs, night sweats, chest pain. No decrease in appetite, unexplained weight loss or fatigue. No othernew onset medical symptoms. Current weight 205 lbs. PIV placed in left AC, one attempt. Pre medicated with Tylenol 650 mg and Zyrtec 10 mg po .Labs drawn CBC d/p, AST, ALT, Alk Phos, T Bili, Alb, 25 Hydroxyvitamin D2 and D3, Vitamin B12, Ferritin, and CRP. Infusion completed without complication or reaction. Pt reports therapy is effective in managing symptoms related to therapy. [place] [email or web address] [phone] documented in this encounter Plan of Treatment Not on filedocumented as of this encounter Visit Diagnoses Not on filedocumented in this encounter Care Teams Machine Set Up Relationship Specialty Start Date End Date Blanche Delacruz PA-C PCP - General 08/19/03 03/08/20 [facility] [address] [place] [phone] documented as of this encounter
--- OUTSIDE RECORDS SUMMARY | 2021-11-24 01:03 | XMS_ITS | Encounter Summary ---
:1975 Author Organization [place] Address [facility] [place] [place] [address] Care Team Providers Name Role Phone Blanche Delacruz PA-C Primary Care Provider [phone] Encounter Details Date Type Department Care Team Description 01/30/2020 [facility] [address] [place], [place] [phone] [place] [address] [place] [address] (Wo rk) Social History Tobacco Use Types Packs/Day Years Used Date Smoking Tobacco: Never Alcohol Use Standard Drinks/Week Comments No 0 (1 standard drink = 0.6 oz pure alcoho l) Sex Assigned at Date Recorded Not on file documented as of this encounter Progress Notes Angelo Delaney - 01/30/2020 11:59 PM CST This is a recent snapshot of the patient's [facility] medical record. For current drug dose and complete information and questions, call [phone] or [facility] ([id number]) CSN Number: [id number] RIBUTION SPEC documented in this encounter Plan of Treatment Not on filedocumented as of this encounter Visit Diagnoses Not on filedocumented in this encounter Care Teams Toll Line Inspector Relationship Specialty Start Date End Date Blanche Delacruz PA-C PCP - General 08/19/03 03/08/20 [facility] [address] [facility] [place] [address] documented as of this encounter
--- OUTSIDE RECORDS SUMMARY | 2021-11-24 01:03 | XMS_ITS | Encounter Summary ---
:1975 Author Organization [place] Address [address] [facility] [place] [address] Care Team Providers Name Role Phone Blanche Delacruz PA-C Primary Care Provider [phone] Reason for Visit Reason Comments Home Infusion Remicade infusion Encounter Details Date Type Department Care Team Description 01/30/2020 Documentation Only [facility] Keyla Ann Home Infusion Infusion VÍCTOR Natarajan (Remicade infusion) [address] [place] [address] Social History Tobacco Use Types Packs/Day Years Used Date Smoking Tobacco: Never Alcohol Use Standard Drinks/Week Comments No 0 (1 standard drink = 0.6 oz pure alcoho l) Sex Assigned at Date Recorded Not on file documented as of this encounter Progress Notes Keyla Ann CRNI - 01/30/2020 11:59 PM CSTSummary: Remicade infusion Skilled Nurse visit in the patient home to administer Remicade 500 mg IV. No recent elevated temperature, fever, chills, productive cough, coughing for 3 weeks or longer or hemoptysis, abnormal vital signs, night sweats, or chest pain. No decrease in appetite, unexplained weight loss or fatigue. No other new onset medical symptoms. Current weight 220 lbs. PIV placed in left AC, 3 attempts. Pre medicated with Tylenol 650 mg po and Zyrtec 10 mg po. Infusion completed without complication or reaction. Pt reports therapy is effective in managing symptoms related to therapy. M[place] [phone] IRATORY THERAPY TECHNICIAN documented in this encounter Plan of Treatment Not on filedocumented as of this encounter Visit Diagnoses Not on filedocumented in this encounter Care Teams Weather Observer Relationship Specialty Start Date End Date Blanche Delacruz PA-C PCP - General 08/19/03 03/08/20 [facility] [address] [place] [phone] documented as of this encounter
--- OUTSIDE RECORDS SUMMARY | 2021-11-24 01:03 | XMS_ITS | Encounter Summary ---
:1975 Author Organization [place] Address [address] [place] [address] Care Team Providers Name Role Phone Blanche Delacruz PA-C Primary Care Provider [phone] Reason for Visit Reason Comments Home Infusion Remicade 500 mg IV Encounter Details Date Type Department Care Team Description 09/26/2019 Documentation Only [facility] Keyla Ann Home Infusion Infusion VÍCTOR Natarajan (Remicade 500 [address] IV) [place] [address] Social History Tobacco Use Types Packs/Day Years Used Date Smoking Tobacco: Never Alcohol Use Standard Drinks/Week Comments No 0 (1 standard drink = 0.6 oz pure alcoho l) Sex Assigned at Date Recorded Not on file documented as of this encounter Progress Notes Keyla Ann RN - 09/26/2019 11:59 PM CDTSummary: Remicade infusion Skilled Nurse visit in the patient home to administer Remicade 500 mg IV. No recent elevated temperature, fever, chills, productive cough, coughing for 3 weeks or longer or hemoptysis, abnormal vital signs, night sweats, chest pain. No decrease in appetite, unexplained weight loss or fatigue. No othernew onset medical symptoms. Current weight 210 lbs. PIV placed in left hand, one attempt. Pre medicated with Tylenol 650 mg po and Zyrtec 10 mg po. Infusion completed without complication or reaction. Pt reports therapy is effective in managing symptoms related to therapy. Crystal MALLORY [phone] documented in this encounter Plan of Treatment Not on filedocumented as of this encounter Visit Diagnoses Not on filedocumented in this encounter Care Teams Cdl Service Technician Relationship Specialty Start Date End Date Blanche Delacruz PA-C PCP - General 08/19/03 03/08/20 [facility] [address] [place] [address] documented as of this encounter
--- OUTSIDE RECORDS SUMMARY | 2021-11-24 01:03 | XMS_ITS | Encounter Summary ---
:1975 Author Organization [place] Address [address] [facility] [place] [address] Care Team Providers Name Role Phone Blanche Delacruz PA-C Primary Care Provider [phone] Encounter Details Date Type Department Care Team Description 12/19/2019 [facility]fusion [place] [facility] [address] [place], [place] [phone] [place] [address] [place] [address] (Wo rk) Social History Tobacco Use Types Packs/Day Years Used Date Smoking Tobacco: Never Alcohol Use Standard Drinks/Week Comments No 0 (1 standard drink = 0.6 oz pure alcoho l) Sex Assigned at Date Recorded Not on file documented as of this encounter Progress Notes Nisreen Mak - 12/19/2019 11:59 PM CST This is a recent snapshot of the patient's [facility] medical record. For current drug dose and complete information and questions, call [phone] or In amanda Nicholson home[facility]usion ([id number]) CSN Number: [id number] FABRIC KNITTER documented in this encounter Plan of Treatment Not on filedocumented as of this encounter Visit Diagnoses Not on filedocumented in this encounter Care Teams Cell Coverer Relationship Specialty Start Date End Date Blanche Delacruz PA-C PCP - General 08/19/03 03/08/20 [facility] [address] [facility] [place] [address] documented as of this encounter
--- OUTSIDE RECORDS SUMMARY | 2021-11-24 01:03 | XMS_ITS | Encounter Summary ---
:1975 Author Organization [place] Address [address] [facility] [address] Care Team Providers Name Role Phone Blanche Delacruz PA-C Primary Care Provider [phone] Encounter Details Date Type Department Care Team Description 08/15/2019 [facility] [place] [facility] [address] [place], [place] [phone] [place] [address] [place] [address] (Wo rk) Social History Tobacco Use Types Packs/Day Years Used Date Smoking Tobacco: Never Alcohol Use Standard Drinks/Week Comments No 0 (1 standard drink = 0.6 oz pure alcoho l) Sex Assigned at Date Recorded Not on file documented as of this encounter Progress Notes David Argueta - 08/15/2019 11:59 PM CDT This is a recent snapshot of the patient's [facility] medical record. For current drug dose and complete information and questions, call [phone] or In amanda Nicholson home[facility] ([id number]) CSN Number: [id number] documented in this encounter Plan of Treatment Not on filedocumented as of this encounter Visit Diagnoses Not on filedocumented in this encounter Care Teams Mover Relationship Specialty Start Date End Date Blanche Delacruz PA-C PCP - General 08/19/03 03/08/20 [facility] [address] [facility] [place] [address] documented as of this encounter
--- OUTSIDE RECORDS SUMMARY | 2021-11-24 01:03 | XMS_ITS | Encounter Summary ---
:1975 Author Organization [place] Address [facility] [place] [address] Care Team Providers Name Role Phone Blanche Delacruz PA-C Primary Care Provider [phone] Encounter Details Date Type Department Care Team Description 08/14/2019 [facility] [place] [facility] [address] [place], [place] [phone] [place] [address] [place] [address] (Wo rk) Social History Tobacco Use Types Packs/Day Years Used Date Smoking Tobacco: Never Alcohol Use Standard Drinks/Week Comments No 0 (1 standard drink = 0.6 oz pure alcoho l) Sex Assigned at Date Recorded Not on file documented as of this encounter Progress Notes Angelo Delaney - 08/14/2019 11:59 PM CDT This is a recent snapshot of the patient's [place] [facility] medical record. For current drug dose and complete information and questions, call [phone] or In amanda Nicholson [facility] ([id number]) CSN Number: [id number] documented in this encounter Plan of Treatment Not on filedocumented as of this encounter Visit Diagnoses Not on filedocumented in this encounter Care Teams Furniture Polisher Relationship Specialty Start Date End Date Blanche Delacruz PA-C PCP - General 08/19/03 03/08/20 [facility] [address] [facility] [place] [address] documented as of this encounter
--- OUTSIDE RECORDS SUMMARY | 2021-11-24 01:03 | XMS_ITS | Encounter Summary ---
:1975 Author Organization [place] Address [facility] [place] [address] Care Team Providers Name Role Phone Blanche Delacruz PA-C Primary Care Provider Encounter Details Date Type Department Care Team Description 11/07/2019 [facility]fusion [place] [facility] [address] [place], [place] [phone] [place] [address] [place] [address] (Wo rk) Social History Tobacco Use Types Packs/Day Years Used Date Smoking Tobacco: Never Alcohol Use Standard Drinks/Week Comments No 0 (1 standard drink = 0.6 oz pure alcoho l) Sex Assigned at Date Recorded Not on file documented as of this encounter Progress Notes Angelo Delaney - 11/07/2019 11:59 PM CDT This is a recent snapshot of the patient's [facility] medical record. For current drug dose and complete information and questions, call [phone] or In amanda Nicholson [facility]usion ([id number]) CSN Number: [id number] documented in this encounter Plan of Treatment Not on filedocumented as of this encounter Visit Diagnoses Not on filedocumented in this encounter Care Teams Customer Solutions Specialist Relationship Specialty Start Date End Date Blanche Delacruz PA-C PCP - General 08/19/03 03/08/20 [facility] [address] [facility] [place] [address] documented as of this encounter
--- OUTSIDE RECORDS SUMMARY | 2021-11-24 01:03 | XMS_ITS | Encounter Summary ---
:1975 Author Organization [place] Address [address] [facility] [place] [address] Care Team Providers Name Role Phone No Ref-Primary, Physician Primary Care Provider [phone] Encounter Details Date Type Department Care Team Description 03/11/2020 Home Infusion [place] [facility] Romina Meraz, [facility] [address] [place], [place] [phone] [address] [facility] [phone] [place] [address] (Wo rk) Social History Tobacco Use Types Packs/Day Years Used Date Smoking Tobacco: Never Alcohol Use Standard Drinks/Week Comments No 0 (1 standard drink = 0.6 oz pure alcoho l) Sex Assigned at Date Recorded Not on file COVID-19 Exposure Response Date Recorded In the last month, have you been in contact with No / Unsure 03/09/2020 3:39 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 documented as of this encounter Progress Notes Bree Desir - 03/11/2020 11:59 PM CST This is a recent snapshot of the patient's [facility] medical record. For current drug dose and complete information and questions, call [phone] or In [employer] [place], [facility] ([id number]) CSN Number: [id number] ECLEANER documented in this encounter Plan of Treatment Not on filedocumented as of this encounter Visit Diagnoses Not on filedocumented in this encounter Care Teams Rod Tape Operator Relationship Specialty Start Date End Date No Ref-Primary, Physician PCP - General 03/09/20 documented as of this encounter
--- OUTSIDE RECORDS SUMMARY | 2021-11-24 01:04 | XMS_ITS | Encounter Summary ---
:1975 Author Organization [place] Address [address] [place] [address] Care Team Providers Name Role Phone Blanche Delacruz PA-C Primary Care Provider [phone] Encounter Details Date Type Department Care Team Description 12/04/2008 Historic Results INTERFACED REPORT Melody Mancia MD RETIRED Social History Tobacco Use Types Packs/Day Years Used Date Smoking Tobacco: Never Alcohol Use Standard Drinks/Week Comments No 0 (1 standard drink = 0.6 oz pure alcoho l) Sex Assigned at Date Recorded Not on file documented as of this encounter Plan of Treatment Not on filedocumented as of this encounter Procedures Procedure Name Priority Date/Time Associated Diagnosis Comme nts RUPTURE OF Routine 12/04/2008 10:45 AM Results for this MEMBRANES BY CDT procedure are i n AMNISURE the results section. documented in this encounter Results Rupture of membranes by Amnisure (12/04/2008 10:45 AM CDT) P athologist Signature Amnisure Negative NEG MISYS Specimen Anatomical Collection Method Collection Time Receive d Time (Source) Location / / Volume Laterality 12/04/2008 10:45 12/04/2008 AM CDT 10:57 AM CDT Melody Mancia MD LAB - BODY FLUIDS ORDERAB LES Performing Organization Address City/State/ZIP Code Phon e Number MISYS documented in this encounter Visit Diagnoses Not on filedocumented in this encounter Care Teams Central Office Equipment Engineer Relationship Specialty Start Date End Date Blanche Delacruz PA-C PCP - General 08/19/03 03/08/20 [facility] [address] [place] [address] documented as of this encounter
--- OUTSIDE RECORDS SUMMARY | 2021-11-24 01:04 | XMS_ITS | Encounter Summary ---
:1975 Author Organization [place] Address [address] [place] [address] Care Team Providers Name Role Phone Blanche Delacruz PA-C Primary Care Provider [phone] Encounter Details Date Type Department Care Team Description 12/12/2008 Historic Results INTERFACED REPORT Melody Mancia MD [...] Comments Diagnosis CBC WITH PLATELETS & STAT 12/12/2008 7:54 AM R esults for this DIFFERENTIAL CDT procedure are i n the results section. URIC ACID STAT 12/12/2008 7:54 AM Results f or this CDT procedure are i n the results section. UREA NITROGEN (BUN) STAT 12/12/2008 7:54 AM Re sults for this CDT procedure are i n the results section. CREATININE STAT 12/12/2008 7:54 AM Results f or this CDT procedure are i n the results section. AST STAT 12/12/2008 7:54 AM Results f or this CDT procedure are i n the results section. ALT STAT 12/12/2008 7:54 AM Results f or this CDT procedure are i n the results section. documented in this encounter Results (ABNORMAL) CBC with platelets differential (12/12/2008 7:54 AM CDT) [facility] gist Method Time Signature MCV 90 78 - 100 MISYS fl MCH 29.8 26.5 - MISYS 33.0 pg MCHC 33.3 31.5 - MISYS 36.5 g/dL RDW 14.9 10.0 - MISYS 15.0 % WBC 10.6 4.0 - MISYS 11.0 10e9/L RBC Count 3.96 3.8 - 5.2 MISYS 10e12/L Hemoglobin 11.8 11.7 - MISYS 15.7 g/dL Hematocrit 35.5 35.0 - MISYS 47.0 % % Neutrophils 75 40 - 75 % MISYS % Lymphocytes 17 (L) 20 - 48 % MISYS % Monocytes 8 0 - 12 % MISYS % Eosinophils 0 0 - 6 % MISYS % Basophils 0 0 - 2 % MISYS Platelet Count 208 150 - 450 MISYS 10e9/L Absolute 7.9 1.6 - 8.3 MISYS Neutrophil 10e9/L Absolute 1.8 0.8 - 5.3 MISYS Lymphocytes 10e9/L Absolute 0.9 0.0 - 1.3 MISYS Monocytes 10e9/L Absolute 0.0 0.0 - 0.7 MISYS Eosinophils 10e9/L Absolute 0.0 0.0 - 0.2 MISYS Basophils 10e9/L Diff Method Automated MISYS Method Specimen Anatomical Collection Method Collection Time Receive d Time (Source) Location / / Volume Laterality 12/12/2008 7:54 AM 9 7:42 CDT AM CDT Melody Mancia MD LAB - BLOOD ORDERABLES Performing Organization Address City/State/ZIP Code Phon e Number MISYS AST (12/12/2008 7:54 AM CDT) athologist Signature AST 21 0 - 45 U/L MISYS Specimen Anatomical Collection Method Collection Time Receive d Time (Source) Location / / Volume Laterality 12/12/2008 7:54 AM 9 7:42 CDT AM CDT Melody Mancia MD LAB - BLOOD ORDERABLES Performing Organization Address City/State/ZIP Code Phon e Number MIS[place] ALT (12/12/2008 7:54 AM CDT) P athologist Signature ALT 10 0 - 50 U/L MISYS Specimen Anatomical Collection Method Collection Time Receive d Time (Source) Location / / Volume Laterality 12/12/2008 7:54 AM 9 7:42 CDT AM CDT Melody Mancia MD LAB - BLOOD ORDERABLES Performing Organization Address City/State/ZIP Code Phon e Number MISYS (ABNORMAL) Creatinine (12/12/2008 7:54 AM CDT) athologist Signature Creatinine 0.49 (L) 0.52 - 1.04 MISYS mg/dL Comment: New IDMS-traceable calibration beginning 06/15/07 GFR Estimate >90 >60 mL/min/1.7m2 MISYS GFR Estimate If Black >90 >60 mL/min/1.7m2 M ISYS Specimen Anatomical Collection Method Collection Time Receive d Time (Source) Location / / Volume Laterality 12/12/2008 7:54 AM 9 7:42 CDT AM CDT Melody Mancia MD LAB - BLOOD ORDERABLES Performing Organization Address City/State/ZIP Code Phon e Number MISYS Uric acid (12/12/2008 7:54 AM CDT) athologist Signature Uric Acid 3.3 2.5 - 6.2 MISYS mg/dL Specimen Anatomical Collection Method Collection Time Receive d Time (Source) Location / / Volume Laterality 12/12/2008 7:54 AM 9 7:42 CDT AM CDT Melody Mancia MD LAB - BLOOD ORDERABLES Performing Organization Address City/State/ZIP Code Phon e Number MISYS Urea nitrogen (12/12/2008 7:54 AM CDT) athologist Signature Urea Nitrogen 5 5 - 24 MIS[place] mg/dL Specimen Anatomical Collection Method Collection Time Receive d Time (Source) Location / / Volume Laterality 12/12/2008 7:54 AM 9 7:42 CDT AM CDT Melody Mancia MD LAB - BLOOD ORDERABLES Performing Organization Address City/State/ZIP Code Phon e Number MISYS documented in this encounter Visit Diagnoses Not on filedocumented in this encounter Care Teams Scarfer Operator Relationship Specialty Start Date End Date Blanche Delacruz PA-C PCP - General 08/19/03 03/08/20 [facility] [address] [facility] [place] [phone] documented as of this encounter
--- OUTSIDE RECORDS SUMMARY | 2021-11-24 01:04 | XMS_ITS | Encounter Summary ---
:1975 Author Organization [place] Address [facility] [place] [address] Care Team Providers Name Role Phone Blanche Delacruz PA-C Primary Care Provider [phone] Encounter Details Date Type Department Care Team Description 07/03/2019 [facility] Infusion [place] [facility] [address] [place], [place] [phone] [place] [address] [place] [address] (Wo rk) Social History Tobacco Use Types Packs/Day Years Used Date Smoking Tobacco: Never Alcohol Use Standard Drinks/Week Comments No 0 (1 standard drink = 0.6 oz pure alcoho l) Sex Assigned at Date Recorded Not on file documented as of this encounter Progress Notes David Argueta - 07/03/2019 11:59 PM CDT This is a recent snapshot of the patient's [place] [facility] medical record. For current drug dose and complete information and questions, call [phone] or In amanda Nicholson home[facility]usion ([id number]) CSN Number: [id number] documented in this encounter Plan of Treatment Not on filedocumented as of this encounter Visit Diagnoses Not on filedocumented in this encounter Care Teams Criminal Court Judge Relationship Specialty Start Date End Date Blanche Delacruz PA-C PCP - General 08/19/03 03/08/20 [facility] [address] [facility] [place] [address] documented as of this encounter
--- OUTSIDE RECORDS SUMMARY | 2021-11-24 01:04 | XMS_ITS | Encounter Summary ---
:1975 Author Organization [facility] Address [address] [place] [address] Care Team Providers Name Role Phone Blanche Delacruz PA-C Primary Care Provider [phone] Encounter Details Date Type Department Care Team Description 05/05/2006 Historic Results INTERFACED REPORT Melody Frederick MD RETIRED Social History Tobacco Use Types Packs/Day Years Used Date Smoking Tobacco: Never Alcohol Use Standard Drinks/Week Comments No 0 (1 standard drink = 0.6 oz pure alcoho l) Sex Assigned at Date Recorded Not on file documented as of this encounter Plan of Treatment Not on filedocumented as of this encounter Procedures Procedure Name Priority Date/Time Associated Comments Diagnosis HEMOGRAM DIFFERENTIAL STAT 05/05/2006 5:30 PM Results for this AND PLATELET CDT procedure are i n the results section. URIC ACID STAT 05/05/2006 5:30 PM Results f or this CDT procedure are i n the results section. UREA NITROGEN (BUN) STAT 05/05/2006 5:30 PM Re sults for this CDT procedure are i n the results section. CREATININE STAT 05/05/2006 5:30 PM Results f or this CDT procedure are i n the results section. AST STAT 05/05/2006 5:30 PM Results f or this CDT procedure are i n the results section. ALT STAT 05/05/2006 5:30 PM Results f or this CDT procedure are i n the results section. L/S RATIO AND DISAT Routine 05/05/2006 8:10 AM Re sults for this LECITHIN CDT procedure are i n the results section. HEMOGRAM DIFFERENTIAL STAT 05/05/2006 6:10 AM Results for this AND PLATELET CDT procedure are i n the results section. ABO/RH TYPE AND SCREEN STAT 05/05/2006 6:10 AM Results for this CDT procedure are i n the results section. RUPTURE OF MEMBRANES BY Routine 05/05/2006 4:45 AM Results for this AMNISURE CDT procedure are i n the results section. HISTOPATHOLOGY Routine 05/05/2006 12:00 Results f or this AM CDT procedure are i n the results section. documented in this encounter Results (ABNORMAL) Hemogram differential and platelet (05/05/2006 5:30 PM CDT) [facility] Method Time Signature MCV 99 78 - 100 MISYS fl MCH 34.6 (H) 26.5 - MISYS 33.0 pg MCHC 34.8 31.5 - MISYS 36.5 g/dL RDW 14.0 10.0 - MISYS 15.0 % WBC 13.5 (H) 4.0 - MISYS 11.0 10e9/L RBC Count 3.98 3.8 - 5.2 MISYS 10e12/L Hemoglobin 13.8 11.7 - MISYS 15.7 g/dL Hematocrit 39.5 35.0 - MISYS 47.0 % % Neutrophils 81 (H) 40 - 75 % MISYS % Lymphocytes 14 (L) 20 - 48 % MISYS % Monocytes 5 0 - 12 % MISYS % Eosinophils 0 0 - 6 % MISYS % Basophils 0 0 - 2 % MISYS Platelet Count 162 150 - 450 MISYS 10e9/L Absolute 11.0 (H) 1.6 - 8.3 MISYS Neutrophil 10e9/L Absolute 1.9 0.8 - 5.3 MISYS Lymphocytes 10e9/L Absolute 0.6 0.0 - 1.3 MISYS Monocytes 10e9/L Absolute 0.0 0.0 - 0.7 MISYS Eosinophils 10e9/L Absolute 0.0 0.0 - 0.2 MIS[facility] Basophils 10e9/L Diff Method Automated MISYS Method Specimen Anatomical Collection Method Collection Time Receive d Time (Source) Location / / Volume Laterality 05/05/2006 5:30 PM 7 5:18 CDT PM CDT Melody Frederick MD LAB - BLOOD ORDERABLES Performing Organization Address City/State/ZIP Code Phon e Number MIS[place] ALT (05/05/2006 5:30 PM CDT) P athologist Signature ALT 22 0 - 50 U/L MISYS Specimen Anatomical Collection Method Collection Time Receive d Time (Source) Location / / Volume Laterality 05/05/2006 5:30 PM 7 5:18 CDT PM CDT Melody Frederick MD LAB - BLOOD ORDERABLES Performing Organization Address City/State/ZIP Code Phon e Number MIS[place] AST (05/05/2006 5:30 PM CDT) athologist Signature AST 22 0 - 45 U/L MIS[facility] Specimen Anatomical Collection Method Collection Time Receive d Time (Source) Location / / Volume Laterality 05/05/2006 5:30 PM 7 5:18 CDT PM CDT Melody Frederick MD LAB - BLOOD ORDERABLES Performing Organization Address City/[facility]/ZIP Code Phon e Number MISYS Uric acid (05/05/2006 5:30 PM CDT) athologist Signature Uric Acid 3.5 2.5 - 6.2 MIS[facility] mg/dL Specimen Anatomical Collection Method Collection Time Receive d Time (Source) Location / / Volume Laterality 05/05/2006 5:30 PM 7 5:18 CDT PM CDT Melody Frederick MD LAB - BLOOD ORDERABLES Performing Organization Address City/[facility]/ZIP Code Phon e Number MISYS Urea nitrogen (05/05/2006 5:30 PM CDT) athologist Signature Urea Nitrogen 5 5 - 24 [facility] mg/dL Specimen Anatomical Collection Method Collection Time Receive d Time (Source) Location / / Volume Laterality 05/05/2006 5:30 PM 7 5:18 CDT PM CDT Melody Frederick MD LAB - BLOOD ORDERABLES Performing Organization Address City/State/ZIP Code Phon e Number MISYS (ABNORMAL) Creatinine (05/05/2006 5:30 PM CDT) [facility] Signature Creatinine 0.53 (L) 0.60 - MISYS 1.30 mg/dL GFR Estimate >90 >60 MISYS mL/min/1.7 m2 GFR Estimate If >90 >60 MISYS Black mL/min/1.7 m2 Specimen Anatomical Collection Method Collection Time Receive d Time (Source) Location / / Volume Laterality 05/05/2006 5:30 PM 7 5:18 CDT PM CDT Melody Frederick MD LAB - BLOOD ORDERABLES Performing Organization Address City/State/ZIP Code Phon e Number MISYS L/S ratio and disat lecithin (05/05/2006 8:10 AM CDT) [facility] Method Time Signature Disaturated Quantity not ug/dL MISYS Lecithin sufficient Comment: Mucoid specimen, quantity insu fficient to perform assay. L/S Ratio Quantity not sufficient MISYS Comment: Mucoid specimen, quantity insu fficient to perform assay. Phosphatidylglycerol Quantity not sufficient MISYS Comment: Mucoid specimen, quantity insu fficient to perform assay. Specimen Anatomical Collection Method Collection Time Receive d Time (Source) Location / / Volume Laterality 05/05/2006 8:10 AM 7 8:17 CDT AM CDT Melody Frederick MD LAB - BODY FLUIDS ORDERAB LES Performing Organization Address City/[facility] Code Phon e Number MISYS (ABNORMAL) Hemogram differential and platelet (05/05/2006 6:10 AM CDT) [facility] Method Time Signature MCV 99 78 - 100 MISYS fl MCH 34.0 (H) 26.5 - MISYS 33.0 pg MCHC 34.4 31.5 - MISYS 36.5 g/dL RDW 13.8 10.0 - MISYS 15.0 % WBC 14.7 (H) 4.0 - MISYS 11.0 10e9/L RBC Count 4.30 3.8 - 5.2 MISYS 10e12/L Hemoglobin 14.6 11.7 - MISYS 15.7 g/dL Hematocrit 42.6 35.0 - MISYS 47.0 % % Neutrophils 70 40 - 75 % MISYS % Lymphocytes 21 20 - 48 % MISYS % Monocytes 8 0 - 12 % MISYS % Eosinophils 1 0 - 6 % MISYS % Basophils 0 0 - 2 % MISYS Platelet Count 167 150 - 450 MISYS 10e9/L Absolute 10.4 (H) 1.6 - 8.3 MISYS Neutrophil 10e9/L Absolute 3.1 0.8 - 5.3 MISYS Lymphocytes 10e9/L Absolute 1.1 0.0 - 1.3 MISYS Monocytes 10e9/L Absolute 0.1 0.0 - 0.7 MISYS Eosinophils 10e9/L Absolute 0.0 0.0 - 0.2 MISYS Basophils 10e9/L Diff Method Automated MISYS Method Specimen Anatomical Collection Method Collection Time Receive d Time (Source) Location / / Volume Laterality 05/05/2006 6:10 AM 7 5:57 CDT AM CDT Melody Frederick MD LAB - BLOOD ORDERABLES Performing Organization Address [facility] Phon e Number MISYS ABO/Rh type and screen (05/05/2006 6:10 AM CDT) Analysis Performed At Patho logist Time Signature ABO A MISYS RH(D) Pos MISYS Antibody Neg MISYS Screen Specimen 05/08/2006 MISYS Expires Specimen Anatomical Collection Method Collection Time Receive d Time (Source) Location / / Volume Laterality 05/05/2006 6:10 AM 7 5:57 CDT AM CDT Melody Frederick MD LAB - BLOOD BANK TEST ORD ER Performing Organization Address City/[facility] Code Phon e Number MISYS (ABNORMAL) Rupture of membranes by Amnisure (05/05/2006 4:45 AM CDT) P athologist Signature Amnisure Positive (A) NEG MISYS Comment: Critical Value called to and read back by OLVIN @ 0517 Specimen Anatomical Collection Method Collection Time Receive d Time (Source) Location / / Volume Laterality 05/05/2006 4:45 AM 7 5:04 CDT AM CDT Melody Frederick MD LAB - BODY FLUIDS ORDERAB LES Performing Organization Address City/State/ZIP Code Phon e Number MISYS Histopathology (05/05/2006 12:00 AM CDT) Component Value Ref Test Analysis Performed At [facility] gist Range Method Time Signature Copath CASE: [id number] ^ COPATH Report Patient Name: ARIELLA GORDON MR#: [id number] Specimen #: [id number] Collected: 05/05/2006 Received: 05/07/2006 Reported: 05/09/2006 12:30 Ordering Phy(s): MELODY FREDERICK SPECIMEN(S): Placenta FINAL DIAGNOSIS: 595 g placenta with large area of infarction involving appro ximately 25 % of placental volume without additional pathologic abnormal ities. Electronically signed out by: Gautam Romo M.D. CLINICAL HISTORY: Placenta from patient with Crohn's disease at 34 and 47 wee ks' gestation. GROSS: Received in the fixed state is a 595 g placenta. ??Examinati on of the maternal surface of the placenta shows laceration and a thin layer of adherent blood clot. ??There is a large wedge-shaped placent al infarct which is triangular in shape and measures 9 cm in length by approximately 9 cm along the margin of the placenta. ??This appears to account for approximately 1/4 of the placental volume. ??The umbilical cord measures 30 cm in length and inserts 5 cm from the clos est placental margin. ??The placental membranes appear hemorrhag ic but are otherwise unremarkable. ??The placenta itself is oval in sha pe and measures approximately 18 x 17 cm in length. ??Serial cross sectioning of the placenta away from the grossly described area of infarct ion does not show additional abnormalities. ??GJC/santosh MICROSCOPIC: Sections from the placenta show mature chorionic villi. ??Se ctions from the margin of the placenta show a large area of ??placental infarction. Sections from the umbilical cord show a 3-vessel umbilical c ord. Sections from the placental membranes do not show acute chor ioamnionitis or other abnormalities.. RAHUL/mk 05/09/2006 TESTING LAB LOCATION: [address] ??[id number] COLLECTION SITE: Client: [facility] Location: OB (S) Specimen (Source) Anatomical Collection Method Collection Time Re ceived Time Location / / Volume Laterality 05/05/2006 05/09/2006 12:3 0 PM CDT Melody Frederick MD LAB - COPATH SPECIAL DIAG ORDERABLES Performing Organization Address City/State/ZIP Code Phon e Number COPATH documented in this encounter Visit Diagnoses Not on filedocumented in this encounter Care Teams Casing Soaker Relationship Specialty Start Date End Date Blanche Delacruz PA-C PCP - General 08/19/03 03/08/20 [facility] [address] [place] [address] documented as of this encounter
--- OUTSIDE RECORDS SUMMARY | 2021-11-24 01:04 | XMS_ITS | Encounter Summary ---
:1975 Author Organization [facility] Address [address] [place] [address] Care Team Providers Name Role Phone Blanche Delacruz PA-C Primary Care Provider [phone] Encounter Details Date Type Department Care Team Description 05/23/2019 Home Infusion [facility] Infusi on Keyla Ann, [address] [place] [address] Social History Tobacco Use Types Packs/Day Years Used Date Smoking Tobacco: Never Alcohol Use Standard Drinks/Week Comments No 0 (1 standard drink = 0.6 oz pure alcoho l) Sex Assigned at Date Recorded Not on file documented as of this encounter Miscellaneous Notes Pharmacy - Keyla Ann RN - 05/23/2019 4:30 PM CDT Skilled Nurse visit in the patient home to administer Remicade 600 mg IV. No recent elevated temperature, fever, chills, productive cough, coughing for 3 weeks or longer or hemoptysis, abnormal vital signs, night sweats, chest pain. No decrease in appetite, unexplained weight loss or fatigue. No othernew onset medical symptoms. Current weight 210 lbs. PIV placed in right hand, one attempt. Pre medicated with Tylenol 650 mg po and Zyrtec 10 mg po. Infusion completed without complication or reaction.Pt reports therapy is effective in managing symptoms related to therapy. MALLORY [phone] documented in this encounter Plan of Treatment Not on filedocumented as of this encounter Visit Diagnoses Not on filedocumented in this encounter Care Teams Powertrain Design Engineer Relationship Specialty Start Date End Date Blanche Delacruz PA-C PCP - General 08/19/03 03/08/20 [facility] [address] [place] [address] documented as of this encounter
--- OUTSIDE RECORDS SUMMARY | 2021-11-24 01:04 | XMS_ITS | Encounter Summary ---
:1975 Author Organization [facility] Address [address] [place] [address] Care Team Providers Name Role Phone Blanche Delacruz PA-C Primary Care Provider [phone] Encounter Details Date Type Department Care Team Description 05/05/2006 Delivery Summary Melody Frederick (Professor Of Anthropology) MD [place] RETIRED Social History Tobacco Use Types Packs/Day Years Used Date Smoking Tobacco: Never Alcohol Use Standard Drinks/Week Comments No 0 (1 standard drink = 0.6 oz pure alcoho l) Sex Assigned at Date Recorded Not on file documented as of this encounter Progress Notes Melody Frederick - 05/13/2006 10:24 AM CDT FINAL Ariella Gordon is a 31-year-old female, 2, para 1, at 34 and 4/7 weeks gestation when she experienced spontaneous rupture of membranes. She was admitted to Labor and Delivery and had antibiotics initiated. Additionally, she received Solu-Cortef via IV because of her prednisone use duringpregnancy for Crohn's disease. She progressed into active labor and received an epidural for pain management. At 18:15, she was completely dilated. She had excellent maternal expulsive efforts, and at 18:45 delivered a viable male infant in the OA position with a nuchal cord x2. The nuchal cord was reduced x2, the was subsequently delivered, the umbilical cord was doubly clamped and cut, and he was handed off to the nursery team in attendance. The male was vigorous at , weighing 5 pounds 13 ounces, with Apgars of 8 at one minute and 9 at five minutes. The placenta delivered spontaneously and intact at 18:48. She required manual massage and intramuscular Methergine. heart tones throughout labor were in the 140s with good very-dm-gbfg variability. During the patient's course, she had exacerbation of her Crohn's, and required an increased dose of prednisone. In addition, she received routine Remicade infusions. Also, during her course, she had an ultrasound which showed anatomical markings suspicious for a chromosome abnormality. She underwent a level II ultrasound which confirmed this; however, both the patient and her elected not to proceed with an amniocentesis. At the time of delivery, there were some markings suggestive of a chromosome abnormality consistent with Trisomy 21, however,further evaluation will be performed once the is stabilized. LENGTH OF LABOR: FIRST STAGE: 4 hours 15 minutes. SECOND STAGE: 30 minutes. THIRD STAGE: 3 minutes. TOTAL LABOR: 4 hours 48 minutes. Electronically signed on 05/13/2006 10:23 by MELODY FREDERICK MD MT: charles Name: ARIELLA GORDON Account: [id number] : 1975 Delivery Date: 05/05/2006 Document: [id number] documented in this encounter Plan of Treatment Not on filedocumented as of this encounter Visit Diagnoses Not on filedocumented in this encounter Care Teams Protective Signal Superintendent Relationship Specialty Start Date End Date Blanche Delacruz PA-C PCP - General 08/19/03 03/08/20 [facility] [address] [place] [address] documented as of this encounter
--- OUTSIDE RECORDS SUMMARY | 2021-11-24 01:04 | XMS_ITS | Encounter Summary ---
:1975 Author Organization [facility] Address [address] [place] [address] Care Team Providers Name Role Phone Blanche Delacruz PA-C Primary Care Provider [phone] Reason for Visit Reason Comments Pharyngitis Encounter Details Date Type Department Care Team Description [facility]19[facility]Primary Dx[facility] ACUTE PHARYNGITIS [address] [place] [address] [place] [address] [place], [place] [phone] [address] Social History Tobacco Use Types Packs/Day Years Used Date Smoking Tobacco: Never Alcohol Use Standard Drinks/Week Comments No 0 (1 standard drink = 0.6 oz pure alcoho l) Sex Assigned at Date Recorded Not on file documented as of this encounter Last Filed Vital Signs Vital Sign Reading Time Taken Comments Blood Pressure 132/88 08/19/2003 11:00 AM CDT Pulse - - Temperature 36.4 ??C (97.6 ??F) 08/19/2003 11:00 AM CDT Respiratory Rate - - Oxygen Saturation - - Inhaled Oxygen Concentration - - Weight 89.4 kg (197 lb) 08/19/2003 11:00 AM CDT Height - - Body Mass Index - - documented in this encounter Progress Notes 08/19/2003 11:00 AM CDT SUBJECTIVE: 28 year old female with sore throat, and burning down into stomach with foods and drinks for 4 days, mild runny nose, no fever, vomiting, or cough States her pills feel stuck in throat. Hasn't been able to take meds for Crohn's. Reviewed PMH and meds. OBJECTIVE: Vitals as noted above. A ppears mild distress. Ears: normal Oropharynx: tonsillar hypertrophy, specifically L>R, moderate eryt jatinder and throat culture taken Neck: moderate tender anterior cervical nodes Lungs: clear to IPPA and S1, S2 normal, no murmur, no gallop, rate regular Rapid Strep test is positive ASSESSMENT: Streptoco ccal pharyngitis PLAN: Suspected peritonsillar abscess until strep test was positive. Start ABX and follow up with GIif her esophageal discomfort continues. Per orders. Gargle, use acetaminophen or other OTC analgesic, and take Rx fully as prescribed. Call if other family members develop similar sy mptoms. See prn. documented in this encounter Nursing Notes 08/19/2003 11:00 AM CDT >> DARYA [place] 08/19/2003 11:14 am Ariella Camargo presents for ST x 4 days, feels burning down esophagus. Initial BP 132/88 Temp (Src) 97.6 (Oral) Wt 197 lbs (89.4kg) completed using BP cuff size: large. 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 documented in this encounter Results STREP GROUP A AG (RAPID) (08/19/2003 11:20 AM CDT) Component Value Ref Test Analysis Performed At [facility] Range Method Time Signature Specimen Throat [place] Description [facility] Rapid Strep A POSITIVE: Group [place] Screen A Streptococcal COUNT INCLUDES THE [facility] antigen detected [facility] by immunoassay. Report status FINAL [id number] [facility] Specimen Anatomical Collection Method Collection Time Receive d Time (Source) Location / / Volume Laterality 08/19/2003 11:20 08/19/2003 AM CDT 11:25 AM CDT Blanche Delacruz PA-C LABORATORY Performing Organization Address City/State/ZIP Code Phon e Number [facility] [address] [place] [address] [facility] documented in this encounter Visit Diagnoses Diagnosis Streptococcal sore throat - Primary Acute pharyngitis documented in this encounter Care Teams Customer Equipment Engineer Relationship Specialty Start Date End Date Blanche Delacruz PA-C PCP - General 08/19/03 03/08/20 [facility] [address] [place] [address] documented as of this encounter
--- OUTSIDE RECORDS SUMMARY | 2021-11-24 01:04 | XMS_ITS | Encounter Summary ---
:1975 Author Organization [facility] Address [facility] [place] [address] Care Team Providers Name Role Phone Blanche Delacruz PA-C Primary Care Provider [phone] Encounter Details Date Type Department Care Team Description 06/04/2019 [facility] [address] [place], [place] [phone] [place] [address] [place] [address] (Wo rk) Social History Tobacco Use Types Packs/Day Years Used Date Smoking Tobacco: Never Alcohol Use Standard Drinks/Week Comments No 0 (1 standard drink = 0.6 oz pure alcoho l) Sex Assigned at Date Recorded Not on file documented as of this encounter Progress Notes Angelo Delaney - 06/04/2019 11:59 PM CDT This is a recent snapshot of the patient's [facility] medical record. For current drug dose and complete information and questions, call [phone] or In amanda Nicholson homeinfusion ([id number]) CSN Number: [id number] documented in this encounter Plan of Treatment Not on filedocumented as of this encounter Visit Diagnoses Not on filedocumented in this encounter Care Teams Rail Operations Controller Relationship Specialty Start Date End Date Blanche Delacruz PA-C PCP - General 08/19/03 03/08/20 [facility] [address] [facility] [place] [address] documented as of this encounter
--- OUTSIDE RECORDS SUMMARY | 2021-11-24 01:04 | XMS_ITS | Encounter Summary ---
:1975 Author Organization [place] Address [facility] [place] [address] Care Team Providers Name Role Phone Blanche Delacruz PA-C Primary Care Provider [phone] Encounter Details Date Type Department Care Team Description 06/12/2019 [facility] [address] [place], [place] [phone] [place] [address] [place] [address] (Wo rk) Social History Tobacco Use Types Packs/Day Years Used Date Smoking Tobacco: Never Alcohol Use Standard Drinks/Week Comments No 0 (1 standard drink = 0.6 oz pure alcoho l) Sex Assigned at Date Recorded Not on file documented as of this encounter Progress Notes Anjali Browne - 06/12/2019 11:59 PM CDT This is a recent snapshot of the patient's [facility] medical record. For current drug dose and complete information and questions, call [phone] or In amanda Nicholson home[facility]usion ([id number]) CSN Number: [id number] documented in this encounter Plan of Treatment Not on filedocumented as of this encounter Visit Diagnoses Not on filedocumented in this encounter Care Teams Finishing Technician Relationship Specialty Start Date End Date Blanche Delacruz PA-C PCP - General 08/19/03 03/08/20 [facility] [address] [facility] [place] [place] [address] documented as of this encounter
--- OUTSIDE RECORDS SUMMARY | 2021-11-24 01:04 | XMS_ITS | Encounter Summary ---
:1975 Author Organization [place] Address [facility] [place] [address] Care Team Providers Name Role Phone Blanche Delacruz PA-C Primary Care Provider [phone] Encounter Details Date Type Department Care Team Description 05/21/2019 [facility] [address] [place], [place] [phone] [place] [address] [place] [address] (Wo rk) Social History Tobacco Use Types Packs/Day Years Used Date Smoking Tobacco: Never Alcohol Use Standard Drinks/Week Comments No 0 (1 standard drink = 0.6 oz pure alcoho l) Sex Assigned at Date Recorded Not on file documented as of this encounter Progress Notes Anjali Browne - 05/21/2019 11:59 PM CDT This is a recent snapshot of the patient's [facility] medical record. For current drug dose and complete information and questions, call [phone] or In amanda Nicholson [facility]usion ([id number]) CSN Number: [id number] documented in this encounter Plan of Treatment Not on filedocumented as of this encounter Visit Diagnoses Not on filedocumented in this encounter Care Teams Past Due Accounts Clerk Relationship Specialty Start Date End Date Blanche Delacruz PA-C PCP - General 08/19/03 03/08/20 [facility] [address] [facility] [place] [address] documented as of this encounter
--- OUTSIDE RECORDS SUMMARY | 2021-11-24 01:04 | XMS_ITS | Encounter Summary ---
:1975 Author Organization [place] Address [address] [place] [address] Care Team Providers Name Role Phone Blanche Delacruz PA-C Primary Care Provider Encounter Details Date Type Department Care Team Description 02/23/2006 Results Only [facility] Results Selin gan MD RETIRED Social History Tobacco Use Types Packs/Day Years Used Date Smoking Tobacco: Never Alcohol Use Standard Drinks/Week Comments No 0 (1 standard drink = 0.6 oz pure alcoho l) Sex Assigned at Date Recorded Not on file documented as of this encounter Plan of Treatment Not on filedocumented as of this encounter Procedures Procedure Name Priority Date/Time Associated Diagnosis Comme [facility] ECHO CV 2D Routine 02/23/2006 1:11 PM Re sults for this LOGISTICS MANAGEMENT SPECIALIST procedure are i n the results section. documented in this encounter Results [facility] (02/23/2006 1:11 PM LOGISTICS MANAGEMENT SPECIALIST) Anatomical Region Laterality Modality Other Specimen (Source) Anatomical Collection Method Collection Time Re ceived Time Location / / Volume Laterality 02/23/2006 1:11 PM LOGISTICS MANAGEMENT SPECIALIST Impressions 02/24/2006 12:37 PM LOGISTICS MANAGEMENT SPECIALIST PEDIATRIC ECHOCARDIOGRAM ?? [facility] E chocardiogram Lab ? CONCLUSION: ?? Normal intra cardiac anatomy at 24 weeks of gestational age. Sinus rhythm at 148 bpm . There is an echogenic papillary muscle of the left ventricle. On any echocardiogram you cannot rule out small ASD, VSD or co arctation of the aorta. ?? M-Mode Report ? 1. ?? Heart rate of 148 bpm. ? 2. ? Normal ventricular dimen sions and contractility. ?? 2-Dimensional Report ?? echocardiography performed at 24 w eeks gestation for an echogenic foci. ??Long and short axis an d four chamber views are obtained. ??Situs is normal with a left sided cardiac apex, abdominal aorta and stomach. ??Aortic, mitral, pul monary and tricuspid valve motions are normal. ??A right sided supe rior and inferior vena cava enter the right atrium. ??The flap of th e foramen ovale opens into the left atrium. ??Left and right atrial siz es are normal. ??There is atrioventricular concordance. ??Left and right ventricular sizes and function are normal. ??There is ventricu loarterial concordance. ??The great arteries are normally related. ??T he pulmonary artery bifurcation, ductus arteriosus, and aort ic arch appear normal. There is an echogenic papillary muscle of the left ventricle. Doppler Report ?? Color flow and spectral Doppler are perf ormed. ??There is no mitral or tricuspid regurgitation. ??Normal flows are recorded in the right ventricular outflow tract, main pulmonar y artery (0.6 m/sec), left ventricular outflow tract, ascending aor ta (0.6 m/sec), and ductus arteriosus. There are at least two pulmo zac veins entering into the left atrium. Gurvinder Oro MD-[phone] ? Rhonda Weathers MD-Pager [phone] ?? Jason Pratt MD-Pager ??[phone] or [phone] ? Alberto Betts MD-Pager [phone] ? João Hawkins MD-Pager [phone] ? Amairani Rodriges MD-Pager [phone] Melody Mancia MD SPECIAL IMAGING STUDIES documented in this encounter Visit Diagnoses Not on filedocumented in this encounter Care Teams Biochemistry Professor Relationship Specialty Start Date End Date Blanche Delacruz PA-C PCP - General 08/19/03 03/08/20 [facility] [address] [place] [address] documented as of this encounter
--- OUTSIDE RECORDS SUMMARY | 2021-11-24 01:04 | XMS_ITS | Encounter Summary ---
:1975 Author Organization [place] Address [address] [place] [address] Care Team Providers Name Role Phone Blanche Delacruz PA-C Primary Care Provider [phone] Encounter Details Date Type Department Care Team Description 06/04/2008 [facility] Results [address] [place] [address] (Wo rk) Social History Tobacco Use Types Packs/Day Years Used Date Smoking Tobacco: Never Alcohol Use Standard Drinks/Week Comments No 0 (1 standard drink = 0.6 oz pure alcoho l) Sex Assigned at Date Recorded Not on file documented as of this encounter Procedure Notes Sydney Howard - 06/05/2008 8:31 AM CDTAssociated Order(s): CONSULT GENETICS FINAL June 04, 2008 Melody Mancia MD [address] [address] Mancia: Your patient, Ariella Gordon, was seen at the [facility] on 2008. She came to clinic along with her , Dewayne, for genetic consultation and elective first trimester screening. This letter will summarize our 40-minute consultation. HISTORY: G 4 P 1-1-0-2 LMP: 03/14/2008 Age: 33 EDC(LMP): 12/19/2008 Age at Delivery: 33 EDC(U/S): not done Gestational Age: 11+5 weeks * No significant complications or exposures were reported in the current . * Ariella's history is significant for the vaginal delivery of her daughter at 37 weeks' gestation. She did experience - induced hypertension near the end of that . Ariella did have one spo ntaneous miscarriage. Her most recent resulted in a 34-week delivery of her son, Braulio, who has trisomy 21. Braulio had a VSD which was repaired at 4 months of age, and he is reportedly doing quite well. * Ariella has been taking vitamins daily during this . Her medical history is significant for diagnosis of Crohn's disease approximately 10 years ago[address] She sees Dr. Villa at [facility]. TESTING OPTIONS: * We discussed the difference between screening tests and diagnostic tests: * First trimester screening-First trimester screen provides revised risk assessments for three specific conditions: Down syndrome, trisomy 13 and trisomy 18. Risk assessments are based upon nuchal translucency, maternal serum DAYANA-A and free beta hCG. If an individual's risk exceeds a pre-defined threshold, the screen is reported as positive. * Additional second trimester serum screening (modified sequential screen)- Modified sequential screening can integrate results of first and second trimester screening into a unified risk assessment. Patients can elect to have second trimester blood work drawn beginning at 15 weeks gestation and integrated with their first trimester results. This additional blood work modestly improves the performance of the screening. If patients wish to have this modified sequential screen, arrangements must be made through the [facility] to ensure that all blood work is sent to the same facility. Patients who elect to forgo modified sequential screening should still be offered maternal serumAFP screening for neural tube defects in the second trimester. TESTING OPTIONS SHOULD SCREEN RESULTS COME BACK ABNORMAL: * We briefly reviewed the testing and screening options for the patient should her first trimester screening tests come back at increased risk: * Chorionic villus sampling (CVS) is an invasive procedure that can diagnose chromosome conditions with 99% accuracy. In experienced hands, it is believed that CVS is associated with approximately a 1/200 risk for loss. Interpretation of results may be complicated by the presence of maternal cell contamination, mosaicism or inconclusive results. CVS does not test for all causes of mental retardation or defects. * Amniocentesis is an invasive test that can diagnose chromosome abnormalities with greater than 99% accuracy. In addition, amniotic fluid alpha fetoprotein levels will be measured to screen for neural tube and abdominal wall defects. There is approximately a 1:300 to 1:500 risk of miscarriage associated with amniocentesis. Amniocentesis does not test for all causes of mental retardation or defects. * Comprehensive (Level II) ultrasound is a detailed ultrasound offered beginning at 18 weeks gestation to screen for anatomic variations seen in some babies with chromosome conditions. Level II ultrasound cannot definitively diagnose or exclude the presence of any chromosome condition. FAMILY HISTORY: Family history was reviewed. * Leslie's family hsitory is most significant for the couple's son, Braulio, who has trisomy 21 diagnosed after . Dl report that echogenic bowel and echogenic intracardiac focus were seen on level II ultrasound with their son, and they were suspicious of Down syndrome prior to his delivery. Nevertheless, they were surprised when he was diagnosed. The couple states thatthey are performing first trimester screening today simply to be prepared if this child also has a chromosomal abnormality. They would not pursue amniocentesis or termination because of a chromosome abnormality. We reviewed the sporadic nature of chromosomal trisomies. We discussed that recent data published on trisomy recurrence risks indicate that Ariella's risk for trisomy 21 in this is approximately 1/271, which is greater than her age-related risk. Her risk for additional chromosomal trisomies is also slightly above that of the general population because of her history. Ariella asked me if a echocardiogram should be done for this given her son's history. We discussed that the VSD is associated with the Down syndrome diagnosis, and therefore, the riskof an isolated heart defect in this is not any greater than the general population risk of8/1000. In my opinion echo is not indicated, but I encouraged her to discuss this with you again. * Anurag's family history is significant for 2 paternal first cousins with mental retardation of unknown etiology. He reports that his paternal aunt and her were second cousins to one another and consanguinity has always been presumed to be the cause of their disabilities. Anurag's niece had a child with trisomy 13 who after . We discussed that this occurrence would not elevate the couple's risk for having a baby with a chromosomal abnormality above that which we already discussed. ETHNIC BACKGROUND: Ariella is [place]cu[place]orean. Anurag is [place]cu[place], [place], [place], and [place]. They report no Ashkenazi Pentecostal ancestry. We discussed the option of carrier screening for cystic fibrosis, but Ariella said that shescreened negative in her previous . I did not have the report available for review today, but we discussed this negative result reduces her carrier risk, but does not eliminate the risk of having a child with this condition. IMPRESSIONS: I had a nice discussion today with Ariella and Anurag. They shared with me that their son is doing quite well and they are happy with his development so far. They are having first trimester screening simply to gain more information, as they would not pursue amniocentesis or a termination of an affected fetus. Ariella did ask me today about the possibility of her being an egg donor for a friend of hers who is undergoing infertility treatments. We discussed that the possibility of gonadal mosaicism would theoretically increase the risk of a chromosomal trisomy in some of her eggs. (This is why the recurrence risk for chromosomal trisomy is greater in individuals who have had an affected child even though trisomy 21 is a sporadic event.) I would encourage her to discuss this with the fertility group to determine whether or not she would be an appropriate egg donor, as it is most likely that they have their own requirements. As long as Ariella's friend is aware of this slight increase in trisomy risk, Warner not see why Ariella could not be an egg donor for her friend. PLAN: 1.) Your patient had a first trimester screen today. We will contact her with results when they areavailable and fax a copy to your office. 2.) Your patient may choose to do additional maternal serumscreening in the second trimester (AFP only or modified sequential screening). Thank you again for the opportunity to meet with your patient. If you have any further questions, please do not hesitate to contact me at [phone]. Sincerely, Electronically signed on 06/18/2008 15:35 by SYDNEY DANGELO MS GC MT: isabella Name: ARIELLA GORDON MRN: [id number] Account: [id number] : 1975 Visit Date: 06/04/2008 Document: [id number] documented in this encounter Plan of Treatment Not on filedocumented as of this encounter Procedures Procedure Name Priority Date/Time Associated Comments Diagnosis ADULT GENETICS & 06/04/2008 12:06 PM Resu lts for this METABOLISM REFERRAL CDT procedur e are in the results section. documented in this encounter Results CONSULT GENETICS (06/04/2008 12:06 PM CDT) Transcriptions Sydney Howard Gc - 06/05/2008 8:31 AM CDT FINAL June 04, 2008 Melody Mancia MD [address] [address] Mancia: Your patient, Ariella Gordon, was seen at the [facility] on June 04, 2008. She came to clinic along with her , Dewayne, for genetic consultation and elective first trimester screening. This letter will summarize ou r 40-minute consultation. HISTORY: G 4 P 1-1-0-2 LMP: 03/14/2008 Age: 33 EDC(LMP): 12/19/2008 Age at Delivery: 33 EDC(U/S): not done Gestational Age: 11+5 weeks * No significant complications or expos ures were reported in the current . * Ariella's history is significant for the vaginal delivery of her daughter at 37 weeks' gestation. She did experience -induced hypertension near the end of that . Ariella did have one spontaneous miscarriage. Her most recent resulted in a 34-week delivery of her son, Braulio, who has trisomy 21. Braulio had a VSD which was repaired at 4 months of age, and he is reportedly doing quite well. * Ariella has been taking vitamins daily during this . Her medical history is significant for diagnosis of Crohn's disease approximate ly 10 years ago[address] She sees Dr. Villa at [facility]. TESTING OPTIONS: * We discussed the difference between s creening tests and diagnostic tests: * First trimester screening-First trime ster screen provides revised risk assessments for three specific conditions: Down syndrome, trisomy 13 and trisomy 18. Risk assessments are based upon nuchal translucency, maternal serum DAYANA-A and free beta hCG. If an in dividual's risk exceeds a pre-defined threshold, the screen is reported as positive. * Additional second trimester serum scr eening (modified sequential screen)- Modified sequential screening can integrate results of first and second trimester screening into a unified risk assessment. Patients can elect to have second trimester blood wor k drawn beginning at 15 weeks gestation and integrated with their first trimester results. This additional blood work modestly improves the performance of the screening. If patients wish to have this modified s equential screen, arrangements must be made through the [facility] to ensure that all blood work is sent to the same facility. Patients who elect to forgo modified sequential screening should sti ll be offered maternal serum AFP screening for neural tube defects in the second trimester. TESTING OPTIONS SHOULD SCREEN RESULTS C OME BACK ABNORMAL: * We briefly reviewed the testing and s creening options for the patient should her first trimester screening tests come back at increased risk: * Chorionic villus sampling (CVS) is an invasive procedure that can diagnose chromosome conditions with 99% accuracy. In experienced hands, it is believed that CVS is associated with approximately a 1/200 risk for loss. Interpretation of result s may be complicated by the presence of maternal cell contamination, mosaicism or inconclusive results. CVS does not test for all causes of mental retardation or defects. * Amniocentesis is an invasive test michael t can diagnose chromosome abnormalities with greater than 99% accuracy. In addition, amniotic fluid alpha fetoprotein levels will be measured to screen for neural tube and abdominal wall defects. There is approxi mately a 1:300 to 1:500 risk of miscarriage associated with amniocentesis. Amniocentesis does not test for all causes of mental retardation or defects. * Comprehensive (Level II) ultrasound i s a detailed ultrasound offered beginning at 18 weeks gestation to screen for anatomic variations seen in some babies with chromosome conditions. Level II ultrasound cannot definitively diagnose or exclude the pre sence of any chromosome condition. FAMILY HISTORY: Family history was reviewed. * Leslie's family hsitory i s most significant for the couple's son, Braulio, who has trisomy 21 diagnosed after . Ariella and Anurag report that echogenic bowel and echogenic intracardiac focus were seen on level II ultrasound with their s on, and they were suspicious of Down syndrome prior to his delivery. Nevertheless, they were surprised when he was diagnosed. The couple states that they are performing first trimester screening today simply to be p repared if this child also has a chromosomal abnormality. They would not pursue amniocentesis or termination because of a chromosome abnormality. We reviewed the sporadic nature of anesthesiology physician assistant mosomal trisomies. We discussed that recent data published on trisomy recurrence risks indicate that Ariella's risk for trisomy 21 in this is approximately 1/271, which is greater than her age-related ri sk. Her risk for additional chromosomal trisomies is also slightly above that of the general population because of her history. Ariella asked me if a echocardio gram should be done for this given her son's history. We discussed that the VSD is associated with the Down syndrome diagnosis, and therefore, the risk of an isolated heart defect in this is not an y greater than the general population risk of 09/999. In my opinion echo is not indicated, but I encouraged her to discuss this with you again. * Anurag's family history is significant for 2 paternal first cousins with mental retardation of unknown etiology. He reports that his paternal aunt and her were second cousins to one another and consanguinity has always been presumed to be the cause of their disabilities. Anurag's niece had a child with trisomy 1 3 who after . We discussed that this occurrence would not elevate the couple's risk for having a baby with a chromosomal abnormality above that which we already discussed. ETHNIC BACKGROUND: Ariella is [place]cu[place]. Anurag is [place]cu[place], [place], [place], and [place]. They report no Ashkenazi Pentecostal ancestry. We discussed the option of carrier screening for cystic fibrosis, but Ariella said that she screened negative in her previous . I di d not have the report available for review today, but we discussed this negative result reduces her carrier risk, but does not eliminate the risk of having a child with this condition. IMPRESSIONS: I had a nice discussion today with Yulisa petersen and Anurag. They shared with me that their son is doing quite well and they are happy with his development so far. They are having first trimester screening simply to gain more information, as they would not pursue am niocentesis or a termination of an affected fetus. Ariella did ask me today about the pos sibility of her being an egg donor for a friend of hers who is undergoing infertility treatments. We discussed that the possibility of gonadal mosaicism would theoretically increase the risk of a chromosomal triso my in some of her eggs. (This is why the recurrence risk for chromosomal trisomy is greater in individuals who have had an affected child even though trisomy 21 is a sporadic event.) I would encourage her to discuss this with the fertility group to determine whether or not she would be an appropriate egg donor, as it is most likely that they have their own requirements. As long as Ariella's friend is aware of this slight increase in trisomy risk, I do not see why Ariella could not be an egg donor for her friend. PLAN: 1.) Your patient had a first trimester screen today. We will contact her with results when they are available and fax a copy to your office. 2.) Your patient may choose to do additional maternal serum screening in the second trimester (AFP only or modified s equential screening). Thank you again for the opportunity to meet with your patient. If you have any further questions, please do not hesitate to contact me at [phone]. Sincerely, Electronically signed on 06/18/2008 15: 35 by SYDNEY DANGELO MS GC MT: isabella Name: ARIELLA GORDON MRN: [id number] Account: [id number] : 1975 Visit Date: 06/04/2008 Document: [id number] Sydney Dangelo GC REFERRAL documented in this encounter Visit Diagnoses Not on filedocumented in this encounter Care Teams Front Office Secretary Relationship Specialty Start Date End Date Blanche Delacruz PA-C PCP - General 08/19/03 03/08/20 [facility] [address] [place] [address] documented as of this encounter
--- OUTSIDE RECORDS SUMMARY | 2021-11-24 01:04 | XMS_ITS | Encounter Summary ---
:1975 Author Organization [place] Address [facility] [place] [address] Care Team Providers Name Role Phone Blanche Delacruz PA-C Primary Care Provider [phone] Encounter Details Date Type Department Care Team Description 05/23/2019 [facility] [address] [place], [place] [phone] [place] [address] [place] [address] (Wo rk) Social History Tobacco Use Types Packs/Day Years Used Date Smoking Tobacco: Never Alcohol Use Standard Drinks/Week Comments No 0 (1 standard drink = 0.6 oz pure alcoho l) Sex Assigned at Date Recorded Not on file documented as of this encounter Progress Notes David Argueta - 05/23/2019 11:59 PM CDT This is a recent snapshot of the patient's [facility] medical record. For current drug dose and complete information and questions, call [phone] or In [facility] ([id number]) CSN Number: [id number] documented in this encounter Plan of Treatment Not on filedocumented as of this encounter Visit Diagnoses Not on filedocumented in this encounter Care Teams Piece Worker Relationship Specialty Start Date End Date Blanche Delacruz PA-C PCP - General 08/19/03 03/08/20 [facility] [address] [facility] [place] [place] [address] documented as of this encounter
--- OUTSIDE RECORDS SUMMARY | 2021-11-24 01:04 | XMS_ITS | Encounter Summary ---
:1975 Author Organization [place] Address [address] [place] [address] Care Team Providers Name Role Phone Blanche Delacruz PA-C Primary Care Provider [phone] Encounter Details Date Type Department Care Team Description 03/22/2008 Historic Notes INTERFACED REPORT Interface, Transcript on, Social History Tobacco Use Types Packs/Day Years Used Date Smoking Tobacco: Never Alcohol Use Standard Drinks/Week Comments No 0 (1 standard drink = 0.6 oz pure alcoho l) Sex Assigned at Date Recorded Not on file documented as of this encounter Progress Notes Interface, Community Marketing Coordinator - 05/03/2010 8:56 AM CDT OUT-PATIENT NUTRITION CONSULTATION DIAGNOSIS: cleliac sprue, impending REFERRING MD: Dr. Marge Villa MEDS/SUPPLEMENTS: none/ vitamins LABS: n/a ANTHROPOMETRICS: Ht: 5' 5.5 Wt: 90.9 kg BMI: 32.9 kg/m2 % Wt change: up 11% over 6 months DIET HISTORY: Pt. reports she has crohn's dz. and has tried to follow a diet based on the book Recipes For The Specific Carbohydrate Diet. Pt. has also tried Weight Watchers, Crystal Nigel, and low calorie/more exercise to help manage her weight. Pt has not been tested yet for celiac spure, but wants to follow a gluten free diet. ESTIMATED NEEDS: dosing wt. 66.2 kg-for slow wt. loss (not for uring ) Calories: 1320 (20 kcal.kg) Protein: 53-66g (.8-1 g/kg) EXERCISE: none NUTRITION DIAGNOSIS: Impaired nutrient utilization R/t compromised function of the GI tract AEB hx. or crohn's dz.and possible celiac sprue INTERVENTIONS: Reviewed gluten free diet with patient and spouse. Discussed the importance of not skipping meals to asist with wt. loss prior to . OUTCOMES: Understands food allowances following diet as instructed: verbalized Understands relationship between diet, disease, and health: verbalized Understands benefit of physical activity: n/a Demonstrates motivation to comply with diet: verbalized GOALS: 1. Pt. will read food labels for gluten/gluten containing ingredients 2. Pt. will avoid gluten from cross-contamination and non-food sources 3. Pt. will focus on eating 3 meals and 2-3 snacks/day. FOLLOW-UP: No further follow up planned RD number provided TIME SPENT WITH PT: 60 minutes [Signature] Author: Yobany Gay (RD, LD) [Signed 14:54] documented in this encounter Plan of Treatment Not on filedocumented as of this encounter Visit Diagnoses Not on filedocumented in this encounter Care Teams Geriatric Psychiatrist Relationship Specialty Start Date End Date Blanche Delacruz PA-C PCP - General 08/19/03 03/08/20 [facility] [address] [place] [address] documented as of this encounter
--- OUTSIDE RECORDS SUMMARY | 2021-11-24 01:04 | XMS_ITS | Encounter Summary ---
:1975 Author Organization [facility] Address [address] [place] [address] Care Team Providers Name Role Phone Blanche Delacruz PA-C Primary Care Provider [phone] Encounter Details Date Type Department Care Team Description 12/12/[address] [facility] Melody Frederick (Md Allergy Immunology) [facility] Ruma Carrillo MD Results RETIRED Social History Tobacco Use Types Packs/Day Years Used Date Smoking Tobacco: Never Alcohol Use Standard Drinks/Week Comments No 0 (1 standard drink = 0.6 oz pure alcoho l) Sex Assigned at Date Recorded Not on file documented as of this encounter Progress Notes Melody Frederick - 12/25/2008 7:19 AM DOCTOR OF NURSING PRACTICE FINAL Ariella Gordon was admitted at 39 weeks gestation for LGA and had artificial rupture of membranes at 7:15 a.m. The patient subsequently received an epidural. She also had clindamycin IV for a vaginal culture positive for group B strep. By 16:30 she was completely dilated. The then developed variable decelerations. He was noted to be in the occiput posterior position and a vacuum was placed. The infant was rotated to the OA position and easily delivered to the outlet where the patient spontaneously delivered a viable male infant weighing 7 pounds 15 ounces with Apgars of 4 at one minuteand 9 at five minutes and 9 at 10 minutes. Umbilical cord gases were obtained. The infant then became vigorous and went to normal nursery subsequently. The time of delivery was 16:45. The placenta delivered spontaneously and intact at 1648. The estimated blood loss was 250 cc. The intrauterine cavity was explored and noted to be free of any fragments. The cervix and vagina were inspected. She had no lacerations and no episiotomy. heart tones had been in the 140s-150s with good vmsh-je-ltcn variability. She had intermittent variable decelerations with contractions which resolved when the patient was moved to the right side. They then had resolved until second stage at which time assistance was provided. LENGTH OF LABOR: First stage 5 hours, second stage 15 minutes, third stage 3 minutes. Total labor 5hours and 18 minutes. Electronically signed on 12/25/2008 07:18 by MELODY FREDERICK MD MT: [id number] Name: ARIELLA GORDON Account: [id number] : 1975 Delivery Date: 12/12/2008 Document: [id number] OR OF NURSING PRACTICE documented in this encounter Plan of Treatment Not on filedocumented as of this encounter Visit Diagnoses Not on filedocumented in this encounter Care Teams Special Education Para Professional Relationship Specialty Start Date End Date Blanche Delacruz PA-C PCP - General 08/19/03 03/08/20 [facility] [address] [place] [address] documented as of this encounter
--- OUTSIDE RECORDS SUMMARY | 2021-11-24 01:04 | XMS_ITS | Encounter Summary ---
:1975 Author Organization [place] Address [facility] [place] [address] Care Team Providers Name Role Phone Blanche Delacruz PA-C Primary Care Provider [phone] Encounter Details Date Type Department Care Team Description 06/04/2008 Historic Results INTERFACED REPORT Melody Mancia MD [...] Name Priority Date/Time Associated Diagnosis Comme nts FIRST TRIMESTER Routine 06/04/2008 9:22 AM Result s for this SCREEN BIOCHEM CDT procedure are in MARKERS the results section. documented in this encounter Results First trimester scrn chrom 7 18 (06/04/2008 9:22 AM CDT) P athologist Signature First Trimester (Note) MISYS Screen Biochem Markers Comment: Patient Information: Name ?:ENA GORDON Client ID ? :[id number] Date of ?? :[birth year] (Age at EDC: 33) Mat. Weight ? :210 Ethnicity ? : Prev Child Hx ?? :Down Syndrome Pbx Mechanic ? :[id number] Report Date ? :06/06/08 Mult Preg. ?:No NT (mm) ? :1.2 CRL ??(mm) ? :55.8 U/S Date ?:06/04/08 GA @ U/S ?:12w0d Draw Date ? :06/04/08 GA @ Draw ? :12w0d (CRL) Date Received ?? :06/05/08 RESULT: Free Beta hCG (MOM) ?:2.23 ? Percentiles:90 DAYANA-A (MOM) ? :1.58 ? Percentiles:70 Nuchal Transl. (Delta) :-0.26 RISK TABLE DOWN SYNDROME - ?1st Trimester Cut-off ?:1 i n 301 ?Before Screening ? :1 in 129 ?After Screening ?: 1 in 1,188 ?RESULTS ?:WITHIN RANGE TRISOMY 18/13 - ?1st Trimester Cut-off ?:1 i n 150 ?Before Screening ? :1 in 959 ?After Screening ?: 1 in>10,000 ?RESULTS ?:WITHIN RANGE ACOG and ACMG's chromosomal screening pr otocols are to offer amniocentesis or CVS for women 35 year o r older at [facility] or with a family history of chromosomal abnormalit y regardless of screening test results. Maternal serum AFP screening (and/or sarah gnostic testing) for open neural tube defects indicated on or abou t 07/02/08. Signed by: Esvin Romo, PhD. CAUTION: These results do not eliminate the possibility that this may be associated with d efects (including Down syndrome, Trisomy 18 and Trisomy 13) or other complications. Down syndrome and Trisomy 18/13 screening is investigational. Assayed at: [employer] [employer] ? [place], [place] ??[address] Specimen Anatomical Collection Method Collection Time Receive d Time (Source) Location / / Volume Laterality 06/04/2008 9:22 AM 9 9:38 CDT AM CDT Melody Mancia MD LAB - BLOOD ORDERABLES Performing Organization Address City/State/ZIP Code Phon e Number [facility] documented in this encounter Visit Diagnoses Not on filedocumented in this encounter Care Teams All Around Gear Machine Operator Relationship Specialty Start Date End Date Blanche Delacruz PA-C PCP - General 08/19/03 03/08/20 [facility] [address] [place] [address] documented as of this encounter
--- OUTSIDE RECORDS SUMMARY | 2021-11-24 01:04 | XMS_ITS | Encounter Summary ---
:1975 Author Organization [place] Address [facility] [place] [address] Care Team Providers Name Role Phone Blanche Delacruz PA-C Primary Care Provider [phone] Encounter Details Date Type Department Care Team Description 05/17/2019 [facility] [address] [place], [place] [phone] [place] [address] [place] [address] (Wo rk) Social History Tobacco Use Types Packs/Day Years Used Date Smoking Tobacco: Never Alcohol Use Standard Drinks/Week Comments No 0 (1 standard drink = 0.6 oz pure alcoho l) Sex Assigned at Date Recorded Not on file documented as of this encounter Progress Notes Angelo Delaney - 05/17/2019 11:59 PM CDT This is a recent snapshot of the patient's [facility] medical record. For current drug dose and complete information and questions, call [phone] or In amanda Nicholson [facility]usion ([id number]) CSN Number: [id number] documented in this encounter Plan of Treatment Not on filedocumented as of this encounter Visit Diagnoses Not on filedocumented in this encounter Care Teams Goldsmith Apprentice Relationship Specialty Start Date End Date Blanche Delacruz PA-C PCP - General 08/19/03 03/08/20 [facility] [address] [facility] [place] [address] documented as of this encounter
--- OUTSIDE RECORDS SUMMARY | 2021-11-24 01:04 | XMS_ITS | Encounter Summary ---
:1975 Author Organization [place] Address [address] [place] [address] Care Team Providers Name Role Phone Blanche Delacruz PA-C Primary Care Provider [phone] Encounter Details Date Type Department Care Team Description 06/15/2019 Orders Only [facility] Radha Bartlett MD Laboratory [facility] [address] [facility] [address] [place] [address] [place], [place] [phone] (Wo rk) Social History Tobacco Use Types [...] Procedure Name Priority Date/Time Associated Comments Diagnosis 25 HYDROXYVITAMIN D2 & Routine 07/04/2019 9:23 AM Results for this D3 CDT procedure are i n the results section. CBC WITH PLATELETS & Routine 07/04/2019 9:23 AM R esults for this DIFFERENTIAL CDT procedure are i n the results section. FERRITIN Routine 07/04/2019 9:23 AM Results f or this CDT procedure are i n the results section. CRP INFLAMMATION Routine 07/04/2019 9:23 AM Resul ts for this CDT procedure are i n the results section. BILIRUBIN TOTAL Routine 07/04/2019 9:23 AM Result s for this CDT procedure are i n the results section. AST Routine 07/04/2019 9:23 AM Results f or this CDT procedure are i n the results section. ALT Routine 07/04/2019 9:23 AM Results f or this CDT procedure are i n the results section. ALKALINE PHOSPHATASE Routine 07/04/2019 9:23 AM R esults for this CDT procedure are i n the results section. ALBUMIN LEVEL Routine 07/04/2019 9:23 AM Results for this CDT procedure are i n the results section. VITAMIN B12 Routine 07/04/2019 9:23 AM Results f or this CDT procedure are i n the results section. documented in this encounter Results 25 Hydroxyvitamin D2 and D3 (07/04/2019 9:23 AM CDT) athologist Signature 25 [place] Vit D2 <5 ug/L 07/06/2019 [facility] 4:06 PM CDT [facility] 25 OH Vit D3 27 ug/L 07/06/2019 [facility] 4:06 PM CDT [facility] 25 OH Vit D <32 20 - 75 07/06/2019 [facility] total ug/L 4:06 PM CDT [facility] Comment: Season, race, dietary intake, and treatm ent affect the concentration of 71-sadwnfr-Gfizsys D. Values may decreas e during winter months and increase during summer months. Values 20-29 ug/L may indicate Vitamin D insufficiency and values <20 ug/L may indicate Vitamin D deficiency. This test was developed and its performa nce characteristics determined by the [facility], [facility]. It has not been cleared or approved by the FDA. The laboratory is regulated under CLIA as qualified to perform high- complexity testing. This test is used for clinical purposes. It should not be regarded as investigational or for research. Specimen Anatomical Collection Method Collection Time Receive d Time (Source) Location / / Volume Laterality 07/04/2019 9:23 AM 0 CDT 12:24 PM CDT Marge Villa MD LAB - BLOOD ORDERABLES Performing Organization Address City/State/ZIP Code Phon e Number [facility] [address] [place] [address] [facility] Vitamin B12 (07/04/2019 9:23 AM CDT) athologist Signature Vitamin B12 419 193 - 986 07/04/2019 [facility] pg/mL 3:30 PM CDT [facility] Specimen Anatomical Collection Method Collection Time Receive d Time (Source) Location / / Volume Laterality 07/04/2019 9:23 AM 0 CDT 12:24 PM CDT Marge Villa MD LAB - BLOOD ORDERABLES Performing Organization Address City/State/ZIP Code Phon e Number [facility] [address] [place] [address] [facility] Ferritin (07/04/2019 9:23 AM CDT) athologist Signature Ferritin 22 12 - 150 07/04/2019 [facility] ng/mL 1:12 PM CDT HOSPITAL Specimen Anatomical Collection Method Collection Time Receive d Time (Source) Location / / Volume Laterality 07/04/2019 9:23 AM 0 CDT 12:24 PM CDT Marge Villa MD LAB - BLOOD ORDERABLES Performing Organization Address City/State/ZIP Code Phon e Number [facility] [address] [place], [place] [address] [facility] [address] [phone] CRP inflammation (07/04/2019 9:23 AM CDT) athologist Signature CRP Inflammation <2.9 0.0 - 8.0 07/04/2019 [facility] mg/L 12:52 PM CDT [facility] Specimen Anatomical Collection Method Collection Time Receive d Time (Source) Location / / Volume Laterality 07/04/2019 9:23 AM 0 CDT 12:24 PM CDT Marge Villa MD LAB - BLOOD ORDERABLES Performing Organization Address City/State/ZIP Code Phon e Number [facility] [address] [place], [place] [address] [facility] [address] [place] [address] [phone] CBC with platelets differential (07/04/2019 9:23 AM T) [facility] Method Time Signature WBC 8.0 4.0 - 07/04/2019 [facility] 11.0 12:33 PM [facility] 10e9/L [facility] RBC Count 4.48 3.8 - 5.2 07/04/2019 [facility] 10e12/L 12:33 PM [facility] Hemoglobin 14.7 11.7 - 07/04/2019 [facility] 15.7 g/dL 12:33 [facility] Hematocrit 43.5 35.0 - 07/04/2019 [facility] 47.0 % 12:33 [facility] MCV 97 78 - 100 07/04/2019 [facility] fl 12:33 PM [facility] MCH 32.8 26.5 - 07/04/2019 [facility] 33.0 pg 12:33 [facility] MCHC 33.8 31.5 - 07/04/2019 [facility] 36.5 g/dL 12:33 [facility] RDW 12.3 10.0 - 07/04/2019 [facility] 15.0 % 12:33 [facility] Platelet Count 266 150 - 450 07/04/2019 [facility] 10e9/L 12:33 [facility] Diff Method Automated 07/04/2019 [facility] Method 12:33 PM [facility] % Neutrophils 48.2 % 07/04/2019 [facility] 12:33 PM [facility] % Lymphocytes 41.2 % 07/04/2019 [facility] 12:33 PM [facility] % Monocytes 7.9 % 07/04/2019 [facility] 12:33 PM [facility] % Eosinophils 1.6 % 07/04/2019 [facility] 12:33 PM [facility] % Basophils 0.6 % 07/04/2019 [facility] 12:33 [facility] % Immature 0.5 % 07/04/2019 [facility] Granulocytes 12:33 [facility] Nucleated RBCs 0 0 /100 07/04/2019 [facility] 12:33 PM [facility] Absolute 3.9 1.6 - 8.3 07/04/2019 [facility] Neutrophil 10e9/L 12:33 PM [facility] Absolute 3.3 0.8 - 5.3 07/04/2019 [facility] Lymphocytes 10e9/L 12:33 PM [facility] Absolute 0.6 0.0 - 1.3 07/04/2019 [facility] Monocytes 10e9/L 12:33 PM [facility] Absolute 0.1 0.0 - 0.7 07/04/2019 [facility] Eosinophils 10e9/L 12:33 PM [facility] Absolute 0.1 0.0 - 0.2 07/04/2019 [facility] Basophils 10e9/L 12:33 PM [facility] Abs Immature 0.0 0 - 0.4 07/04/2019 [facility] Granulocytes 10e9/L 12:33 PM [facility] Absolute 0.0 07/04/2019 [facility] Nucleated RBC 12:33 PM [facility] Specimen Anatomical Collection Method Collection Time Receive d Time (Source) Location / / Volume Laterality 07/04/2019 9:23 AM 0 CDT 12:24 PM CDT Marge Villa MD LAB - BLOOD ORDERABLES Performing Organization Address City/State/ZIP Code Phon e Number [facility] [address] [place] [address] [facility] [address] [phone] Bilirubin total (07/04/2019 9:23 AM CDT) P athologist Signature Bilirubin Total 0.4 0.2 - 1.3 07/04/2019 [facility] mg/dL 12:52 PM [facility] Specimen Anatomical Collection Method Collection Time Receive d Time (Source) Location / / Volume Laterality 07/04/2019 9:23 AM 0 CDT 12:24 PM CDT Marge Villa MD LAB - BLOOD ORDERABLES Performing Organization Address City/State/ZIP Code Phon e Number [facility] [address] [place] [address] [facility] [address] [place], [place] [address], [facility] [phone] AST (07/04/2019 9:23 AM CDT) athologist Signature AST 16 0 - 45 U/L 07/04/2019 [facility] 12:52 PM CDT HOSPITAL Specimen Anatomical Collection Method Collection Time Receive d Time (Source) Location / / Volume Laterality 07/04/2019 9:23 AM 0 CDT 12:24 PM CDT Marge Villa MD LAB - BLOOD ORDERABLES Performing Organization Address City/State/ZIP Code Phon e Number [facility] [address] [place], [place] [address] [facility] [address] [place], [place] [address], [facility] [phone] ALT (07/04/2019 9:23 AM CDT) athologist Signature ALT 27 0 - 50 U/L 07/04/2019 [facility] 12:52 PM CDT HOSPITAL Specimen Anatomical Collection Method Collection Time Receive d Time (Source) Location / / Volume Laterality 07/04/2019 9:23 AM 0 CDT 12:24 PM CDT Marge Villa MD LAB - BLOOD ORDERABLES Performing Organization Address City/State/ZIP Code Phon e Number [facility] [address] [place], [place] [address] [facility] [address] [place], [place] [address], [facility] [phone] Alkaline phosphatase (07/04/2019 9:23 AM CDT) athologist Signature Alkaline 47 40 - 150 07/04/2019 [facility] Phosphatase U/L 12:52 PM CDT [facility] Specimen Anatomical Collection Method Collection Time Receive d Time (Source) Location / / Volume Laterality 07/04/2019 9:23 AM 0 CDT 12:24 PM CDT Marge Villa MD LAB - BLOOD ORDERABLES Performing Organization Address City/[facility] Phon e Number [facility] [address] [place], [place] [address] [facility] [address] [place], [place] [address], [facility] [phone] Albumin level (07/04/2019 9:23 AM CDT) athologist Signature Albumin 3.6 3.4 - 5.0 07/04/2019 [facility] g/dL 12:52 PM CDT HOSPITAL Specimen Anatomical Collection Method Collection Time Receive d Time (Source) Location / / Volume Laterality 07/04/2019 9:23 AM 0 CDT 12:24 PM CDT Marge Villa MD LAB - BLOOD ORDERABLES Performing Organization Address City/[facility] Code Phon e Number [facility] [address] [place], [place] [address] [facility] [address] [place], [place] [address], [facility] [phone] documented in this encounter Visit Diagnoses Not on filedocumented in this encounter Care Teams Brick Dropper Relationship Specialty Start Date End Date Blanche Delacruz PA-C PCP - General 08/19/03 03/08/20 [facility] [address] [place] [address] documented as of this encounter
--- OUTSIDE RECORDS SUMMARY | 2021-11-24 01:04 | XMS_ITS | Encounter Summary ---
:1975 Author Organization [place] Address [facility] [place] [address] Care Team Providers Name Role Phone Blanche Dleacruz PA-C Primary Care Provider [phone] Encounter Details Date Type Department Care Team Description 05/22/2019 [facility] [address] [place], [place] [phone] [place] [address] [place] [address] (Wo rk) Social History Tobacco Use Types Packs/Day Years Used Date Smoking Tobacco: Never Alcohol Use Standard Drinks/Week Comments No 0 (1 standard drink = 0.6 oz pure alcoho l) Sex Assigned at Date Recorded Not on file documented as of this encounter Progress Notes Bree Desir - 05/22/2019 11:59 PM CDT This is a recent snapshot of the patient's [facility] medical record. For current drug dose and complete information and questions, call [phone] or In amanda Nicholson [facility] ([id number]) CSN Number: [id number] documented in this encounter Plan of Treatment Not on filedocumented as of this encounter Visit Diagnoses Not on filedocumented in this encounter Care Teams Bi Analyst Relationship Specialty Start Date End Date Blanche Delacruz PA-C PCP - General 08/19/03 03/08/20 [facility] [address] [place] [address] documented as of this encounter
[2021-11-24 01:14] LABS: Chloride* 103 mmol/L (96-114); Sodium* 139 mmol/L (135-149)
[2021-11-24 01:15] LABS: Potassium* 3.4 mmol/L (3.6-5.1)
[2021-11-24 01:17] LABS: Creatinine* 0.6 mg/dL (0.5-1.5); Est. Creatinine Clearance* 107.67; Estimated Glomerular Filt Rate 113 ml/min
[2021-11-24 01:18] LABS: Blood Urea Nitrogen* 15 mg/dL (5-24); Calcium* 9.2 mg/dL (8.4-10.6); Carbon Dioxide* 27 mmol/L (20-32); Glucose* 126 mg/dL (60-115)
--- OUTSIDE RECORDS SUMMARY | 2021-11-24 01:19 | XMS_ITS | Encounter Summary ---
:1975 Author Organization [facility] Address [address] [place] [address] Care Team Providers Name Role Phone Unavailable Primary Care Provider Unavailable Encounter Details Date Type Department Care Team Description 05/09/2019 Clinical Communication Division of [facility] ajnet Estevez M.D. [place], [place] [address] [facility] [address] [place] [address] [phone] Social History Tobacco Use Types Packs/Day Years Used Date Smoking Tobacco: Never Sex Assigned at Date Recorded Not on file documented as of this encounter Miscellaneous Notes Telephone Encounter - Aubrie Reed M.D. - 05/09/2019 10:58 AM CDT Gastroenterology and Hepatology Triage (COVID-19 Pandemic) This patient's upcoming appointment / appointment request was triaged in the event of the COVID19 pandemic. 44 yo F referred for Crohn's with Dr. Bartlett only per request. History of Crohn's ileocolitis with prior therapy including infliximab, which she was apparently on until 2006 following , and remained off medications on diet only therapy for 5+ years. Seen in 2011 locally for increased perianal pain and drainage by her PCP who was concerned about abscess, provided antibiotics, and referred to GI (we have no records from them). Only notes thereafter are most recently from February 2017 and PCP notes for when she was seen for URI. Med list at these times include infliximab. Recommendations: ELECTIVE - OSM not available to adequately triage. Therefore, should be scheduled as a virtual visit/phone call first to clarify urgency and obtain OSM. Aubrie Reed M.D. 05/09/2019 documented in this encounter Plan of Treatment Not on filedocumented as of this encounter Visit Diagnoses Not on filedocumented in this encounter
--- OUTSIDE RECORDS SUMMARY | 2021-11-24 01:19 | XMS_ITS | Encounter Summary ---
:1975 Author Organization [facility] Address [address] [place] [address] Care Team Providers Name Role Phone Unavailable Primary Care Provider Unavailable Reason for Visit Reason Comments COVID Inquiry Encounter Details Date Type Department Care Team Description 05/30/2020 Clinical Communication Division of RE[facility]LD[facility] Gastroenterology in [place], [place] [address] [facility] [address] [place] [address] [phone] Social History Tobacco Use Types Packs/Day Years Used Date Smoking Tobacco: Never Sex Assigned at Date Recorded Not on file documented as of this encounter Plan of Treatment Not on filedocumented as of this encounter Visit Diagnoses Not on filedocumented in this encounter
--- OUTSIDE RECORDS SUMMARY | 2021-11-24 01:19 | XMS_ITS | Encounter Summary ---
:1975 Author Organization [facility] Address [address] [place] [address] Care Team Providers Name Role Phone Unavailable Primary Care Provider Unavailable Reason for Visit Reason Comments Med Refill Encounter Details Date Type Department Care Team Description 07/22/2020 Refill Division of Gastroenterology in Radha Bartlett M.D. Med Refill [place], [place] [address] [facility] [address] [place] [phone] (Wo rk) Social History Tobacco Use Types Packs/Day Years Used Date Smoking Tobacco: Never Sex Assigned at Date Recorded Not on file documented as of this encounter Plan of Treatment Not on filedocumented as of this encounter Visit Diagnoses Diagnosis Crohn's Disease (HCC) documented in this encounter
--- OUTSIDE RECORDS SUMMARY | 2021-11-24 01:19 | XMS_ITS | Encounter Summary ---
:1975 Author Organization [facility] Address [address] [place] [address] Care Team Providers Name Role Phone Unavailable Primary Care Provider Unavailable Encounter Details Date Type Department Care Team Description 09/30/2020 Orders Only RST PCP [facility] Fang Galvan M.D. [address] [place], [place] [phone] (Wo rk) Social History Tobacco Use Types Packs/Day Years Used Date Smoking Tobacco: Never Sex Assigned at Date Recorded Not on file documented as of this encounter Plan of Treatment Not on filedocumented as of this encounter Visit Diagnoses Not on filedocumented in this encounter
--- OUTSIDE RECORDS SUMMARY | 2021-11-24 01:19 | XMS_ITS | Clinical Summary ---
:1975 Author Organization [facility] Address [address] [place] [address] Care Team Providers Name Role Phone Unavailable Primary Care Provider Unavailable Source Comments Patient records contain information from all sites at [facility]. For routine questions regarding patient records, call [phone] during business hours, M-F 8:00 AM - 5:00 PM Central Time. Record requests for emergency care only can be directed to [phone] at any time.[facility] Allergies Active Allergy Reactions Severity Noted Date Comments Ketamine Hallucinations Medium 02/03/2019 Penicillinase Hives 05/16/2009 Penicillins Hives High 05/16/2009 Medications Medication Sig Dispensed Refills Start Date End Date Status sod picosulf-mag Split-dose regimen: 320 mL 0 06/17/2020 Active ox-citric ac Drink 1 bottle (160 (Clenpiq) 10 mg-3.5 mL) the evening gram -12 gram/160 mL before colonoscopy solution then 1 bottle (160 mL) the next morning; Drink at least five 8-ounce cups clear liquids after the first dose and at least four 8-ounce cups after the second dose. inFLIXimab Infuse 5 mg/kg every 1 each 5 07/22/2020 Active (Remicade) 10 mg/mL 6 weeks. injectionIndications : Crohn's Disease (HCC) Immunizations Name Administration Dates Next Due influenza vaccine quad (FLUZONE/FLUARIX) (6 months and 02/18 older)(PF) Social History Tobacco Use Types Packs/Day Years Used Date Smoking Tobacco: Never Sex Assigned at Date Recorded Not on file Plan of Treatment Health Maintenance Due Date Last Done Comments Cervical Cancer Screening 1975 HIV Screening 1975 Hepatitis C Screening 1975 Lipid (Cholesterol) 1975 Screening Mammogram 1975 Pneumococcal vaccine (0-64 01/29/2017 01/30/2016 years) (2 - PPSV23 or PCV20) Depression Screening 02/14/2021 (Annual PHQ-2) Creatinine Level 03/09/2021 03/09/2020 Potassium Level 03/09/2021 03/09/2020 Sodium Level 03/09/2021 03/09/2020 COVID-19 Vaccine (5 - 05/13/2021 03/18/2021, 10/14/2020, Booster for Moderna series) 04/18/2020, Addition al history exists Influenza Vaccine (#1) 2021 11/26/2019, 10/23/2018, 10/06/2017, Additional history exists DTaP,Tdap,and Td Vaccines 07/20/2028 07/20/2018 (2 - Td or Tdap) Hepatitis B Vaccines Completed 09/04/2020, 07/20/2018, 03/23/2011 HPV Vaccines Aged Out No longer eligib jhoan based on patient 's age to complete this topic Insurance Payer Benefit Plan Subscriber ID Effective Phone Address Typ e / Group Dates [facility] CHOICE [id number] 2019-Prese [phone] [address] [id number] PPO PLUS [address] [place] [address]
--- OUTSIDE RECORDS SUMMARY | 2021-11-24 01:19 | XMS_ITS | Encounter Summary ---
:1975 Author Organization [facility] Address [address] [place] [address] Care Team Providers Name Role Phone Unavailable Primary Care Provider Unavailable Encounter Details Date Type Department Care Team Description 03/16/2020 Clinical Communication Division of [place] Gastroenterology in [place], [place] Lisseth [address] [facility] [address] [place] [address] [place], [place] [phone] Social History Tobacco Use Types Packs/Day Years Used Date Smoking Tobacco: Never Sex Assigned at Date Recorded Not on file documented as of this encounter Miscellaneous Notes Telephone Encounter - Jamie Cabral M.D. - 03/16/2020 6:55 PM PHYSICIAN SURGEON I got a call from [facility] that the patient is due for her infusion tomorrow (03/17) but she just developed a painful rash for which sounds like shingles. I told [facility] to cancel the infusion tomorrow. [facility] will contact Dr. Bartlett and the patient to clarify the appropriate time to resume the infusion. Jamie Cabral MD GI Fellow on-call ICIAN SURGEON documented in this encounter Plan of Treatment Not on filedocumented as of this encounter Visit Diagnoses Not on filedocumented in this encounter
--- OUTSIDE RECORDS SUMMARY | 2021-11-24 01:19 | XMS_ITS | Encounter Summary ---
:1975 Author Organization [facility] Address [address] [place] [address] Care Team Providers Name Role Phone Unavailable Primary Care Provider Unavailable Reason for Visit Reason Onset Date Comments Outpatient COVID-19 Testing 12/24/2019 Encounter Details Date Type Department Care Team Description 12/24/2019 External Outreach Department of Family Post, Kyree Dove, Encounter For Medicine, [facility] [place] Screening For Other Clinic [place], [address] [facility] [place], [place] (COVID- 19) (Primary Building in [place], [address] Dx) [place] [phone] [address] [facility] [address] (Work) [place], [place] [phone] (Fax) [phone] Social History Tobacco Use Types Packs/Day Years Used Date Smoking Tobacco: Never Sex Assigned at Date Recorded Not on file documented as of this encounter Progress Notes Rosa Packer R.N. - 12/24/2019 12:50 PM CST Encounter created for COVID-19 screening. K FEEDER documented in this encounter Plan of Treatment Not on filedocumented as of this encounter Procedures Procedure Name Priority Date/Time Associated Diagnosis Comme nts SARS CORONAVIRUS-2, Routine 12/24/2019 3:45 PM Encounter For R esults for this PCR STICK FEEDER Screening For Other procedur e are in Viral Diseases the results (COVID-19) section. documented in this encounter Results SARS Coronavirus-2, PCR Asymptomatic (12/24/2019 3:45 PM STICK FEEDER) [facility] gist Method Time Signature SARS Swab, 12/25/2019 DTL Coronavirus-2 Nasopharynx 10:21 PM Source STICK FEEDER SARS Undetected Undetected 12/25/2019 DTL Coronavirus-2 10:21 PM , PCR STICK FEEDER Comment: SARS-CoV-2 RNA absent. This result does not rule out COVID-19 in the patient, as the sensitivity of the test depends o n the timing of the specimen collection and quality of the specimen. Result should be correlated with patient's history and clinical presentat ion. ----ADDITIONAL INFORMATION---- This test was developed and its performa nce characteristics determined by [facility] in a manner co nsistent with CLIA requirements. Independent review by the U.S. Food and Drug Administration is pending. Visit the CDC website: https://www.cdc.gov/coronavirus/ ?? for the most recent guidelines on [place] virus testing. Fact Sheet for Healthcare Providers: (https://www.ClearContext/it-mmfil es/ Provider_Fact_Sheet_for_[facility]_COVI D-19.pdf) Fact Sheet for Patients: (https://www.ClearContext/it-mmfil es/ Patient_Fact_Sheet_for_COVID-19.pdf) Specimen Anatomical Collection Method Collection Time Receive d Time (Source) Location / / Volume Laterality Varies 12/24/2019 3:45 PM 0 8:27 (Nasopharynx) STICK FEEDER PM STICK FEEDER Kyree Parker M.D. LAB MICROBIOLOGY - GENERAL O RDERABLES Performing Organization Address City/State/ZIP Code Phon e Number [facility] - [address] [place], [place] [address] [facility] [place] [address] Laboratories-[facility] [address] documented in this encounter Visit Diagnoses Diagnosis Encounter For Screening For Other Viral Diseases (COVID-19) - Primary documented in this encounter Additional Health Concerns Infection Onset Date Last Indicated Resolved Time COVID19 Pending 12/24/2019 12/24/2019 12/25/2019 10:22 PM STICK FEEDER documented as of this encounter
--- OUTSIDE RECORDS SUMMARY | 2021-11-24 01:19 | XMS_ITS | Encounter Summary ---
:1975 Author Organization [facility] Address [address] [place] [address] Care Team Providers Name Role Phone Unavailable Primary Care Provider Unavailable Reason for Visit Reason Comments Hypokalemia, Remicade Encounter Details Date Type Department Care Team Description 03/10/2020 Clinical Division of [place], Hypokalemia, Communication Gastroenterology in [place], [place] L[place] [address] [facility] [address] [facility] [phone] [facility] [phone] [place] [phone] Social History Tobacco Use Types Packs/Day Years Used Date Smoking Tobacco: Never Sex Assigned at Date Recorded Not on file documented as of this encounter Plan of Treatment Not on filedocumented as of this encounter Visit Diagnoses Not on filedocumented in this encounter
--- OUTSIDE RECORDS SUMMARY | 2021-11-24 01:19 | XMS_ITS | Encounter Summary ---
:1975 Author Organization [facility] Address [address] [place] [address] Care Team Providers Name Role Phone Unavailable Primary Care Provider Unavailable Reason for Visit Reason Comments Crohn's Disease ibd Appointment Request (Routine) - Closed Specialty Diagnoses / Referred By Contact Referred To Procedures Contact Gastroenterology and Diagnoses Crohn's Disease (HCC) Hepatology Referral ID Status Reason Start Date Expiration Date Visits Requ ested Visits Authorized [id number] Closed 03/27/2019 03/26/2020 1 1 Encounter Details Date Type Department Care Team Description 06/04/2019 Virtual Visit Division of Radha Bartlett Crohn's Dise ase Gastroenterology janet Jose M.D. (HCC) (Primary Dx) [place], [place] [address] [facility] [address] [place] [phone] [phone] Social History Tobacco Use Types Packs/Day Years Used Date Smoking Tobacco: Never Sex Assigned at Date Recorded Not on file documented as of this encounter Consult Notes Radha Bartlett M.D. - 06/04/2019 10:00 AM CDT Gastroenterology and Hepatology Virtual Visit (COVID-19 Pandemic) Date of Consultation: 06/04/2019 This patient was virtually interviewed via real time audio in the patient's home by Radha Bartlett M.D. at [facility] [place]. The history and findings below are based on review of available medical records and a virtual conversation with the patient. This Virtual Visit was performed during the COVID-19 emergency, when many states had issued [id number] orders. Referring Physician: No ref. provider found No primary care provider on file. Chief Complaint/Reason for Consult: No primary diagnosis found. History of Present Illness: Ms. Camargo is a 44 y.o. female who is being seen remotely today. There were no encounter diagnoses. Ms. Camargo S a 44-year-old woman with ileocolonic Crohn's disease and perianal involvement who Ispoke with today to establish care for her Crohn's disease. She was initially diagnosed with Crohn'sdisease at the age of 23 when she was experiencing diarrhea and abdominal cramping. Colonoscopy confirmed her diagnosis. She believes initially she was treated with Pentasa in also received several steroid courses with Entocort and prednisone. Eventually she was started on Remicade which she took for a couple of years and did well on. She then discontinued this in 2006 and was off all medications forseveral years. In 2011 she developed a perirectal abscess and fistula. This was treated with antibiot ics and did not require surgical intervention. She was then started on Humira but developed psoriasis and then was subsequently restarted on Remicade which he has continued on since and has continued to do well. She believes she is getting the Remicade every 6 weeks at a dose of 10 milligrams/kilogram. On the Remicade she feels well for the entire duration of her dosing interval. She reports 1-2 formed bowel movements per day. She denies abdominal pain, and nausea or vomiting, fevers, chills, or night sweats. She has no extraintestinal manifestations. Her last Remicade infusion was 3 weeks ago. Kusheceives her infusions at home. Her last colonoscopy was in 2015. At that time she did have some mild active inflammation noted in the terminal ileum and cecum. There was otherwise evidence of quiescent disease throughout the colon. She was found to have a sessile serrated adenoma in the colon which was removed. She has not had a follow-up colonoscopy. She does not recall the last time she has had small-bowel imaging. Her past medical history is notable for hypertension, migraines, and hidradenitis. Her hidradenitis seems to be well controlled since she cut dairy out of her diet. She denies any surgeries and has never been hospitalized for her Crohn's disease. Her family history is notable for 2 children with Crohn's disease. One child was diagnosed at the age of 2 and the other was diagnosed at the age of 15. Her father also has a history of ulcerative colitis. For her social history she is a lifetime nonsmoker. She is with 3 children. 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 Review of Systems: All other systems reviewed and negative unless mentioned in the history of present illness, patient provided information or problem list. History Review: The following portions of the patient's history were reviewed and updated as appropriate: allergies,current medications, family history, medical history, social history, surgical history and problem list. OBJECTIVE Objective: Vital Signs: Not performed. Physical Exam: Not Performed ASSESSMENT / PLAN Assessment/Plan: Ms. Camargo is a 44 y.o. female and I had a virtual visit with her for evaluation and management of No primary diagnosis found.. Ms. Camargo like to establish care for the management of her ileocolonic Crohn's disease with perianal involvement. She currently is doing well with no symptoms to suggest active disease. Her last colonoscopy was 4 years ago and she has had no recent small-bowel imaging. Her last blood work was probably about 1 year ago. Recommendations: 1. We will schedule the patient for a colonoscopy with propofol for surveillance biopsies 2. Will plan for a CT enterography 3. Will continue Remicade, every 6 weeks. We will need to confirm her dose as last clinic note reports 5 mg/kg although patient reports 10 mg/kg 4. Will schedule routine blood work to be performed at home with next infusion of Remicade The patient like to hold off on coming to [place] for any testing until things have calmed down with COVID-19. Advised patient to look at the documentation on the patient portal. BILLIN minutes spent in a combination of the following activities: visit with the patient; reviewing records; interpreting test results; discussing plans with the patient and/or family; discussingand coordinating care with other team members and communicating / reviewing care plan with local provider(s). Radha Batrlett M.D. 06/04/2019 documented in this encounter Plan of Treatment Not on filedocumented as of this encounter Visit Diagnoses Diagnosis Crohn's Disease (HCC) - Primary documented in this encounter
--- OUTSIDE RECORDS SUMMARY | 2021-11-24 01:19 | XMS_ITS | Encounter Summary ---
:1975 Author Organization [facility] Address [address] [place] [address] Care Team Providers Name Role Phone Unavailable Primary Care Provider Unavailable Reason for Visit Reason Comments Symptom Assessment Encounter Details Date Type Department Care Team Description 03/18/2020 Clinical Division of Susan, Symptom Assessm ent Communication Gastroenterology in [place], [place] R.N. [address] [facility] [address] [place] [phone] Social History Tobacco Use Types Packs/Day Years Used Date Smoking Tobacco: Never Sex Assigned at Date Recorded Not on file documented as of this encounter Miscellaneous Notes Telephone Encounter - Kesha Davis RAmrita. - 03/18/2020 2:58 PM CST Phone call placed to Mrs. Camargo with symptom update. She still has the shingles and still getting new spots. She is currently on Valcyclovir TID which she started Tuesday night (03/16/20). The rash is on her right side (lower back, lower stomach and hip). She did a virtual visit with PCP and was diagnosed with the shingles. She also has a really low potassium. PCP is wondering if she has COVID dueto the shingles and low potassium, so she is going to go and get tested. I asked her to keep us updated per the portal and she was agreeable to that. She verbalized understanding and was agreeable to this plan. D OF EDUCATION SECRETARY documented in this encounter Plan of Treatment Not on filedocumented as of this encounter Visit Diagnoses Not on filedocumented in this encounter
--- OUTSIDE RECORDS SUMMARY | 2021-11-24 01:19 | XMS_ITS | Encounter Summary ---
:1975 Author Organization [facility] Address [address] [place] [address] Care Team Providers Name Role Phone Unavailable Primary Care Provider Unavailable Reason for Visit Reason Comments COVID Inquiry Encounter Details Date Type Department Care Team Description 12/24/2019 Clinical Communication Division of Wayne ArguelloID Inquiry Endocrinology in [place], [place] [address] [place] [address] Social History Tobacco Use Types Packs/Day Years Used Date Smoking Tobacco: Never Sex Assigned at Date Recorded Not on file documented as of this encounter Miscellaneous Notes Telephone Encounter - Hebert Ghotra - 12/24/2019 12:32 PM CST COVID DOS/PASS Screening What is the patient requesting?: COVID-19 Testing Only (End screening - follow local process) Plan: Endpoint recommendation: Followed regional OTG *Reminder if sending patient for testing in T or [facility], an email notification is required. RISK MANAGEMENT CONSULTANT documented in this encounter Plan of Treatment Not on filedocumented as of this encounter Visit Diagnoses Not on filedocumented in this encounter
--- OUTSIDE RECORDS SUMMARY | 2021-11-24 01:19 | XMS_ITS ---
:1975 Author Care Team Providers Name Role Phone BILL HERNANDEZ MD Primary Care Provider [phone] Allergies Code Code System Name Reaction Severity Status Onset 723 RxNorm Amoxicillin ? ? Active ? 6130 RxNorm Ketamine ? ? Active ? Medications Name Status Start Date Stop Date ? ? amitriptyline 25 mg tablet Active ? Not a vailable TAKE 1 TABLET BY MOUTH AT BEDTIME budesonide DR - ER 3 mg capsule,delayed,extended release Active ? Not available 3 CAP ORAL EVERY DAY FOR 2 WK THEN 2 CAP DAILY X2 WK THEN 1 CAP DAILY X2 WK bupropion HCl XL 150 mg 24 hr tablet, extended release Active ? Not available TAKE 1 TABLET BY MOUTH ONCE DAILY Clenpiq 10 mg-3.5 gram-12 gram/160 mL oral solution Active ? Not available escitalopram 20 mg tablet Active ? Not av ailable ID NOW COVID-19 Test Kit Active ? Not luba ilable TEST DIRECTED lisinopril 20 mg-hydrochlorothiazide 25 mg tablet Active ? Not available ondansetron HCl 4 mg tablet Active ? Not available TAKE 1 TABLET BY ORAL ROUTE EVERY 8H NEED DURING THE COLONOSCOPY PREP FOR NAUSEA Remicade Active ? Not available rosuvastatin 10 mg tablet Active ? Not av ailable Suprep Bowel Prep Kit 17.5 gram-3.13 gram-1.6 gram oral solution Active ? Not available ORAL DIRECTED Problems None recorded. Procedures Notes: Fractured left wrist as child. Otherwise denies procedures to cervical spine or upper extremities. Results Lab Results None recorded. Past Encounters 07/24/2021 Carpal Tunnel Syndrome of Right Wrist Chon Lorenzana [facility] [place] [address], Ph. 07/08/2021 Bilateral Carpal Tunnel Syndrome; Parest hesia of Bilateral Hands Molly Benitez PA-C: [place] [address], Ph. Social History Tobacco Smoking Status Never Smoker Vaccine List None recorded. Plan of Care Patient Instructions Follow up scheduled in 2-7 days, either over the phone or in person. The patient was instructed to take over the counter pain medication as discussed, as needed for postoperative pain management. Written p ost op instructions were discussed in detail and provided. Patient was instructed to call with any questions or concerns. Reminders Provider Appointments None recorded. ? ? Lab None recorded. ? ? Referral None recorded. ? ? Procedures None recorded. ? ? Surgeries None recorded. ? ? Imaging None recorded. ? ? Vitals 07/24/2021 12:00PM THREAD CARPAL PROCEDURE Height Blood Pressure 5 ft 6 in 140/90 mm[Hg] 07/08/2021 11:00AM [facility] consult Height Weight BMI 5 ft 6 in 245 lbs 39.5 kg/m2
--- OUTSIDE RECORDS SUMMARY | 2021-11-24 01:19 | XMS_ITS | Encounter Summary ---
:1975 Author Organization [facility] Address [address] [place] [address] Care Team Providers Name Role Phone Unavailable Primary Care Provider Unavailable Encounter Details Date Type Department Care Team Description 05/30/2020 Clinical Communication Division of Radha Bartlett Gastroenterology in [place], [place] [address] [facility] [address] [place] [phone] Social History Tobacco Use Types Packs/Day Years Used Date Smoking Tobacco: Never Sex Assigned at Date Recorded Not on file documented as of this encounter Plan of Treatment Not on filedocumented as of this encounter Visit Diagnoses Diagnosis Crohn's Disease (HCC) - Primary documented in this encounter
--- OUTSIDE RECORDS SUMMARY | 2021-11-24 01:19 | XMS_ITS | Encounter Summary ---
:1975 Author Organization [facility] Address [address] [place] [address] Care Team Providers Name Role Phone Unavailable Primary Care Provider Unavailable Encounter Details Date Type Department Care Team Description 03/27/2019 Clinical Communication Division of Provider, Gastroenterology in [place], [place] [address] [place] [address] Social History Tobacco Use Types Packs/Day Years Used Date Smoking Tobacco: Never Sex Assigned at Date Recorded Not on file documented as of this encounter Plan of Treatment Not on filedocumented as of this encounter Visit Diagnoses Not on filedocumented in this encounter
--- OUTSIDE RECORDS SUMMARY | 2021-11-24 01:19 | XMS_ITS | Encounter Summary ---
:1975 Author Organization [facility] Address [address] [place] [address] Care Team Providers Name Role Phone Unavailable Primary Care Provider Unavailable Encounter Details Date Type Department Care Team Description 04/28/2015 Hospital Encounter HX RST EMERGENCY Provider, Historic [facility] Social History Tobacco Use Types Packs/Day Years Used Date Smoking Tobacco: Never Assessed Sex Assigned at Date Recorded Not on file documented as of this encounter Plan of Treatment Not on filedocumented as of this encounter Visit Diagnoses Not on filedocumented in this encounter
--- OUTSIDE RECORDS SUMMARY | 2021-11-24 01:19 | XMS_ITS | Encounter Summary ---
:1975 Author Organization [facility] Address [address] [place] [address] Care Team Providers Name Role Phone Unavailable Primary Care Provider Unavailable Reason for Referral Outpatient (Routine) - Authorized Specialty Diagnoses / Procedures Referred By Contact Refer red To Contact Diagnoses Crohn's Disease (HCC) Diana Bartlett M.D. [facility] Procedures Colonoscopy [address] [place] [address] Referral ID Status Reason Start Date Expiration Date Visits V isits Requested Authorized [id number] Authorized 07/03/2021 07/03/2022 1 1 MRI/CAT/PET Scan (Routine) - Authorized Specialty Diagnoses / Procedures Referred By Contact Refer red To Contact Radiology Diagnoses Crohn's Disease (HCC) Diana Bartlett M.D. [facility] Procedures CT Abdomen Pelvis Enterography without and with IV Contrast [address] [place] [address] Referral ID Status Reason Start Date Expiration Date Visits V isits Requested Authorized [id number] Authorized 07/03/2021 07/03/2022 1 1 Outpatient (Routine) - Authorized Specialty Diagnoses / Referred By Referred To Cont act Procedures Contact Gastroenterology and Diana Bartlett [facility] Hepatology Lisseth [address] [place] [address] Referral ID Status Reason Start Date Expiration Date Visits V isits Requested Authorized [id number] Authorized 07/03/2021 07/03/2022 1 1 Scheduling Instructions 60 min please after tests If virtual visit is scheduled, please sc hedule 48 business hours after scope (if scheduled). Reason for Visit Reason Comments Remicade orders/need for follow-up Encounter Details Date Type Department Care Team Description 07/01/2021 Clinical Division of [facility] in [place] orders/ need for [place], [place] Lisseth follow-up [address] [facility] [address] [facility] [address] [facility] [phone] [place] [id number] Social History Tobacco Use Types Packs/Day Years Used Date Smoking Tobacco: Never Sex Assigned at Date Recorded Not on file documented as of this encounter Miscellaneous Notes Addendum Note - Diana Bartlett M.D. - 07/03/2021 1:44 PM CDT Addended by: DIANA BARTLETT on: 07/03/2021 01:44 PM Modules accepted: Orders documented in this encounter Plan of Treatment Scheduled Orders Name Type Priority Associated Order Schedule Diagnoses CT Abdomen Pelvis Imaging RAD - Routine (most Crohn's Disease Expected: Enterography without inpatients and all (HCC) 0 07/04/2021 and with IV Contrast outpatients) (Approx imate), Expires: 10/03/2022 25-Hydroxyvitamin D2 Lab Routine Crohn's Disease Expe cted: and D3 (HCC) 07/04/2021 (Approximate), Expires: 10/03/2022 Albumin Lab Routine Crohn's Disease Expected: (HCC) 07/04/2021 (Approximate), Expires: 10/03/2022 Alkaline Phosphatase Lab Routine Crohn's Disease Expe cted: (HCC) 07/04/2021 (Approximate), Expires: 10/03/2022 ALT (Alanine Lab Routine Crohn's Disease Expected: Aminotransferase) ([facility]) 07/04/2021 (Approximate), Expires: 10/03/2022 AST (Aspartate Lab Routine Crohn's Disease Expected: Aminotransferase) ([facility]) 07/04/2021 (Approximate), Expires: 10/03/2022 Bilirubin, Total Lab Routine Crohn's Disease Expected : ([facility]) 07/04/2021 (Approximate), Expires: 10/03/2022 CBC with Differential, Lab Routine Crohn's Disease Ex pected: Blood ([facility]) 07/04/2021 (Approximate), Expires: 10/03/2022 CRP (C-Reactive Lab Routine Crohn's Disease Expected: Protein) ([facility]) 07/04/2021 (Approximate), Expires: 10/03/2022 Ferritin Lab Routine Crohn's Disease Expected: ([facility]) 07/04/2021 (Approximate), Expires: 10/03/2022 Vitamin B12 Assay Lab Routine Crohn's Disease Expecte d: ([facility]) 07/04/2021 (Approximate), Expires: 10/03/2022 Colonoscopy GI Routine Crohn's Disease Expected: ([facility]) 07/03/2021 (Approximate), Expires: 06/23/2023 Scheduled Referrals Name Type Priority Associated Order Schedule Diagnoses Gastroenterology and Outpatient Routine Expecte d: Hepatology office visit Referral 06/15 (clinic) (Approximate), Expires: 06/23/2023 documented as of this encounter Visit Diagnoses Diagnosis Crohn's Disease (HCC) - Primary documented in this encounter
--- OUTSIDE RECORDS SUMMARY | 2021-11-24 01:19 | XMS_ITS | Clinical Summary ---
:1975 Author Organization [facility] [place] [address] Care Team Providers Name Role Phone Molly Rider NP Primary Care Provider Unavailable Allergies Active Allergy Reactions Severity Noted Date Comments Amoxicillin Hives 05/16/2009 Penicillinase Hives 05/16/2009 Medications Medication Sig Dispensed Refills Start Date End Date Status inFLIXimab (REMICADE) Every 8 weeks 0 06/16/2013 Active 100 mg injection amitriptyline (ELAVIL) Take 1 tablet by 0 01/01/2016 Active 10 mg tablet mouth at bedtime. NaCl 0.9% 500 mL with Inject 0 Active inFLIXimab 100 mg solr intravenous. cholecalciferol (VITAMIN TK 1 T PO D 0 07/17/2019 Active D3) 1,000 unit tablet lisinopril-hydrochloroth Take 1 Tablet by 0 05/21/19 21 Active iazide, 20-25 mg, mouth once (PRINZIDE, ZESTORETIC) daily. 20-25 mg per tablet ondansetron (ZOFRAN ODT) Take 4 mg by 0 03/09/2020 Active 4 mg disintegrating mouth. tablet rosuvastatin (CRESTOR) TAKE 1 TABLET 0 05/20/2020 Active 10 mg tablet (10 MG) BY MOUTH DAILY fluticasone (50 mcg per Inhale 2 Sprays 1 Bottle 0 06/19/2020 Active actuation) nasal to both nostrils solution (FLONASE) once daily. cyanocobalamin (Vitamin Take 1 Tablet 90 Tablet 3 06/19/2020 Active B-12) 1,000 mcg tablet (1,000 mcg) by mouth once daily. Coenzyme Q10 10 mg cap Take 1 Capsule 0 06/19/2020 Active (10 mg) by mouth once daily. aspirin (ECOTRIN) 81 mg Take 1 Tablet 0 06/19/2020 Active enteric coated tablet (81 mg) by mouth once daily with a meal. Active Problems Problem Noted Date Crohn's disease of both small and large intestine with out complication 02/22/2011 Resolved Problems Problem Noted Date Resolved Date Perirectal abscess 02/22/2011 01/01/2016 Immunizations Name Administration Dates Next Due HepA-HepB (Twinrix) 03/23/2011 Influenza, IIV3 (Age >=3 years) 03/23/2011, 02/03/2007 Pneumococcal conj 13-Valent (Prevnar 13) 01/30/2016 Tuberculin (PPD) 03/23/2011, 03/07/2006 Family History Medical History Relation Name Comments Genetic Son Braulio Down Syndrome Relation Name Status Comments Son Braulio Social History Tobacco Use Types Packs/Day Years Used Date Never Smoker Smokeless Tobacco: Never Used Tobacco Cessation: Counseling Given: Yes Alcohol Use Standard Drinks/Week Comments No 0 (1 standard drink = 0.6 oz pure alcoho l) Sex Assigned at Date Recorded Not on file Obstetrics History Last Filed Vital Signs Vital Sign Reading Time Taken Comments Blood Pressure 124/80 06/19/2020 4:12 PM CDT Pulse 105 06/19/2020 4:12 PM CDT Temperature 36.9 ??C (98.4 ??F) 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 Respiratory Rate - - Oxygen Saturation 99% 06/19/2020 4:12 PM CDT Inhaled Oxygen Concentration - - Weight 116 kg (255 lb 11.2 oz) 06/19/2020 4:12 PM CDT Height 166 cm (5' 5.35) 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 Body Mass Index 42.09 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 Plan of Treatment Health Maintenance Due Date Last Done Comments COVID-19 vaccine series (#1) 1975 Tdap 1988 Hepatitis C screening for age 18-79 04/23/1995 Tetanus booster 1997 BMI (ht and wt on same day) for age 0103/16/2018 03/16/2017, 01/01/2016 18+ Depression screening for age 12+ 03/16/2018 03/16/2017 Influenza for age 9-49 10/15/2021 03/23/2011, 02/03/2007 Pap test for age 21-65 09/05/2023 09/04/2020, 04/02/2016, 04/02/2016 Results Not on filefrom Last 3 Months Insurance Payer Benefit Plan / Subscriber ID Effective Dates Phone Addre ss Type Group [facility] [id number] 2020-Present [address] [address] [place] [address] Care Teams Shellac Polisher Relationship Specialty Start Date End Date oMlly Rider, 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
[2021-11-24] MEDS: POTASSIUM CHLORIDE 10 MEQ CAPSULE ER 40 MEQ PO (01:53)
== END 2021-11-24 02:01 | disposition home or self-care (01) ==
PROVIDERS: Emergency Provider Family Medicine; PCP Emergency Medicine
DX: F41.9 Anxiety disorder, unspecified (principal)
CPT/HCPCS: 36415; 80048; 85025; 99282; 99283; A9270